=== PATIENT | female | born 1990 | race Hispanic/Latino ===

== ENCOUNTER 2019-08-13 13:48 | Outpatient (CLI) | payer OTHER, SELFPAY ==
--- NOTE | ~2019-08-13 | US_ITS ---
EXAMINATION: US OB /maternal detail DATE: 08/13/2019 15:12 INDICATION: Routine care. TECHNIQUE: Real-time ultrasound of the pelvis was performed. COMPARISON: None. FINDINGS: There is a single living fetus in breech presentation. The placenta is anterior, 2.1 cm from the cer vix. heart rate is 150 beats per minute (bpm). The amniotic fluid volume is subjectively normal . The following biometric data were obtained: Biparietal diameter (BPD): 4.5 cm; head circumference (HC): 17.4 cm; abdominal circumference (AC): 14 .2 cm; femur length (FL): 3.0 cm. These measurements are concordant. Estimated weight is 296 g +/- 44 g, which correlates with 50th percentile when 01/04/20 is used as estimated date of delivery. As single measurements, these parameters are each equal to the following estimated gestational ages: BPD: 19 weeks 4 days. HC: 19 weeks 6 days. AC: 19 weeks 4 days. FL: 19 weeks 2 days. estimated gestational age based solely on measurements from this exam is 19 weeks 4 days +/- 1 weeks 3 days. The cerebral ventricles, cerebellum, cisterna magna, nuchal fold, and visualized portions of the spin e are normal. The heart is normal. The diaphragm, stomach, kidneys, and bladder are normal. There are two umbilical arteries to yield a 3-vessel cord. The cord insertion is normal. IMPRESSION: 1. Single living fetus in breech presentation. 2. Estimated weight is 296 g +/- 44 g, which correlates with 50th percentile when 01/04/20 is u sed as estimated date of delivery. 3. Normal anatomic survey. Reviewed, dictated and finalized at location A. IMPRESSION: 1. Single living fetus in breech presentation. 2. Estimated weight is 296 g +/- 44 g, which correlates with 50th percen tile when 01/04/20 is used as estimated date of delivery. 3. Normal anatomic survey.
== END 2019-08-13 13:49 | disposition home or self-care (01) ==
LOC: ANHIMG 13:49
PROVIDERS: PCP Internal Medicine; Visit Provider Obstetrics & Gynecology
DX: Z34.90 Encounter for supervision of normal pregnancy, unspecified, unspecified trimester (principal)
CPT/HCPCS: 76805

== ENCOUNTER 2019-12-26 11:31 | Outpatient (RCR) | payer OTHER, SELFPAY ==
--- NOTE | ~2019-12-26 | US_ITS ---
EXAMINATION: US OB follow up w BPP, US umbilical doppler DATE: 12/26/2019 13:38 INDICATION: Third trimester . Assess weight, biophysical profile, amniotic fluid index and umbilical cord Dopplers. TECHNIQUE: Real-time pelvic ultrasound was performed. The interpreting radiologist was not present fo r the study. COMPARISON: None. FINDINGS: There is a single living fetus in vertex presentation. The placenta is anterior. heart rate is 150 beats per minute (bpm). Normal amniotic fluid index of 10.2 cm (5th%-95%: 7.2-RT 2.6 cm at 39 we eks estimated gestational age). The umbilical artery demonstrates a peak systolic and diastolic velocity ratio of 2.3-2.4 at multiple locations along the cord including at the fetus, placenta and mid cord (5th%-95%: 1.87-2.98 at 39 we eks). Biophysical profile performed by the technologist: breathing (30 sec sustained breathing in 30 minutes): 2 out of 2 movement (3 gross body movements in 30 minutes): 2 out of 2 tone (one episode of jmkiyrn-wljtagswa-ymafxfy limb movement): 2 out of 2 Amniotic fluid pocket (2 cm): 2 out of 2 Total score: 8 out of 8 IMPRESSION: 1. Single living fetus in vertex presentation with heart rate of 150 bpm. 2. Biophysical profile 8 out of 8. 3. Normal amniotic fluid index of 10.2 cm. 4. Normal umbilical artery systolic to diastolic velocity ratios of 2.3-2.4. Reviewed, dictated and finalized at location A. IMPRESSION: 1. Single living fetus in vertex presentation with heart rate of 150 bpm. 2. Biophysical profile 8 out of 8. 3. Normal amniotic fluid index of 10.2 cm. 4. Normal umbilical artery systolic to diastolic velocity ratios of 2.3-2.4.
[2019-12-26 12:28] VITALS: BP 116/78; PULSE 80
== END 2020-01-05 07:37 | disposition home or self-care (01) ==
LOC: ANHOBOP 11:31
PROVIDERS: PCP Internal Medicine; Visit Provider Obstetrics & Gynecology
DX: O99.210 Obesity complicating pregnancy, unspecified trimester (principal); E66.9 Obesity, unspecified; Z3A.38 38 weeks gestation of pregnancy
CPT/HCPCS: 59025; 76816; 76819; 76820; J2274

== ENCOUNTER 2020-01-02 06:11 | Inpatient (IN) | payer OTHER, SELFPAY ==
[2020-01-02] VITALS (46 sets, daily range): BP systolic 96–143; BP diastolic 59–90; PULSE 52–75; RESP 16–18; TEMP 36.4–37.1; O2SAT 97–100; BMI 55.6
--- NOTE | 2020-01-02 06:11 | LDADM ---
This patient, Betty Hannah, was admitted to Labor/Delivery/Recovery 120 on 01/02/20 at 06:11. Plans for labor, pain management and were discussed with patient. Patient/family oriented to hospital policies and general routines including ID bracelet, bed and alarms, visiting hours, pain management, procedures, bathroom and other care routines, personal items, smoking policy, room service/diet and guest tray routines, security routines, and visiting hours. Patient/Family are encouraged to report perceived risks to care and to ask questions if they do not understand what they are told or what they should do. See OBIX for further documentation.
[2020-01-02] MEDS: LACTATED RINGERS 1,000 ML 125 ML IV CONT (06:40)
[2020-01-02 06:51] LABS: Basophils Absolute Auto 0.1 K/mm3 (0.0-0.1); Basophils Percent Auto 0.4 % (0.2-1.2); Eosinophils Absolute Auto 0.6 K/mm3 (0-0.3); Eosinophils Percent Auto 4.6 % (0-4.4); Hemoglobin 10.7 g/dL (12.0-15.0); Immature Granulocyte Absolute 0.07 K/mm3 (0.00-0.031); Immature Granulocyte Percent A 0.5 % (0-0.5); Lymphocytes Absolute Auto 1.56 K/mm3 (0.9-3.2); Lymphocytes Percent Auto 12.1 % (18.3-44.2); Mean Corpuscular HGB Conc 32.4 g/dl (32-36); Mean Corpuscular Hemoglobin 26.8 pg (26-34); Mean Corpuscular Volume 82.7 fl (80-100); Monocytes Absolute Auto 0.5 K/mm3 (0.1-0.6); Neutrophils Absolute Auto 10.1 K/mm3 (1.3-6.7); Neutrophils Percent Auto 78.4 % (45.5-73.1); Platelet Count Result 337 k/mm3 (150-375); Red Blood Count 3.99 M/mm3 (4.2-5.4); Red Cell Distribution Width 13.9 % (11.5-14.5); White Blood Count 12.9 K/mm3 (4.5-10.0)
--- NOTE | 2020-01-02 06:54 | WPDANESEPPF ---
Anes - Initial Pre Proc Eval Procedure: Operation Date: 01/02/20 07:30 Proposed Procedures p Repeat Low Transverse Section - Hector Aquino MD Date/Time: 01/02/20 06:54 Surgeon: Hector Aquino MD Pre Op Diagnosis: Prior Patient Data Age: 29 Gender: F Height: 1.63 m Weight: 147 kg Allergies Allergy/AdvReac Type Severity Reaction Status Date / Time No Known Allergies Allergy Unverified 04/13/15 23:42 Home Medications Medication Instructions Recorded Confirmed Type PNV cmb#95-ferrous fumarate-FA 1 tablet PO DAILY 12/06/19 12/06/19 History [] Laboratory Tests 01/02/20 01/02/20 06:36 06:36 WBC 12.9 K/mm3 H K/mm3 (4.5-10.0) RBC 3.99 M/mm3 L M/mm3 (4.2-5.4) Hgb 10.7 g/dL L g/dL (12.0-15.0) Hct 33.0 % L % (37.0-47.0) MCV 82.7 fl fl (80-100) MCH 26.8 pg pg (26-34) MCHC 32.4 g/dl g/dl (32-36) RDW 13.9 % % (11.5-14.5) Plt Count 337 k/mm3 k/mm3 (150-375) MPV 10.0 fl fl (7.4-10.4) Immature Gran % (Auto) 0.5 % % (0-0.5) Neut % (Auto) 78.4 % H % (45.5-73.1) Lymph % (Auto) 12.1 % L % (18.3-44.2) [place] % (Auto) 4.0 % % (2.6-8.5) Eos % (Auto) 4.6 % H % (0-4.4) Baso % (Auto) 0.4 % % (0.2-1.2) Lymph # (Auto) 1.56 K/mm3 K/mm3 (0.9-3.2) [place] # (Auto) 0.5 K/mm3 K/mm3 (0.1-0.6) Eos # (Auto) 0.6 K/mm3 H K/mm3 (0-0.3) Baso # (Auto) 0.1 K/mm3 K/mm3 (0.0-0.1) Abs Immat Gran (auto) 0.07 K/mm3 H K/mm3 (0.00-0.031) Absolute Neuts (auto) 10.1 K/mm3 H K/mm3 (1.3-6.7) Absolute Nucleated RBC 0.0 K/mm3 K/mm3 (0.0-0.012) Nucleated RBC % 0.0 % % (0.0-0.2) RPR Pending Patient hx anesthesia problems: none Family hx anesthesia problems: none [facility] Surgical History Surgical History (Updated 01/01/20 @ 10:11 by Kailash Quigley DO) History of Family History Family History (Updated 12/06/19 @ 14:02 by Janice Gonzales RN) Sibling Cancer Grandparent Cancer Social History Social History Substance use: never Gender identity (if verbalized by the patient): Female Spiritual care concerns: No Anes - Eval Final PreProcedure Day of Procedure 01/02/20 06:54 Patient weight: super morbidly obese Heart: regular rate and rhythm Lungs: clear to auscultation and normal air movement Airway: Mallampati scale class II Neurological: alert and oriented Last oral intake: >/= 8 hours ASA classification: III Emergent: no Anesthetic plan: proceed Anesthesia type and monitoring: regional spinal and standard monitoring Informed Consent: The patient's anesthetic plan and its attendant risks and benefits were discussed with the patient/family/POA. Questions were solicited and answers provided to the satisfaction of the patient/family/POA.
[2020-01-02] MEDS: ceFAZolin 3 GM/D5W 100 ML 100 ML IVPB (07:06)
--- NOTE | 2020-01-02 07:27 | WPDHPUPDATE1 ---
History and Physical Update Update Date/Time: 01/02/20 07:27 History and Physical has been reviewed, including an updated exam of the patient. There are NO changes in the patient's condition. Risks, benefits, and alternatives have been discussed and questions answered. Patient agrees to proceed with procedure.
[2020-01-02] MEDS: OXYTOCIN 30 UNITS/NS 500 ML 30 UNITS/500 ML BAG 125 UNITS IV CONT (08:56)
[2020-01-02 09:02] LABS: Rapid Plasma Reagin Non-Reactive (NonReactive)
[2020-01-02] MEDS: KETOROLAC 30 MG/ML VIAL (*BKC) IV PUSH ×2 (09:34→16:00)
--- NOTE | 2020-01-02 13:23 | PM.OBPRVD ---
OB - Delivery Note Procedure Procedure: Procedures Operation Date: 01/02/20 07:30 Actual Procedures Side Surgeon p Repeat Low Transverse Section Not Applicable Gopi Buckley MD Route of delivery: Specimen: No Estimated blood loss (mL): 400 Anesthesia type: Spinal Disposition: PACU Baby Weeks of gestation at delivery: 39 Weight (pounds): 7 Weight (ounces): 1 score one minute: 9 score five minutes: 9
--- NOTE | 2020-01-02 13:24 | PM.OBPRVD ---
OB - Delivery Note Procedure Procedure: Procedures Operation Date: 01/02/20 07:30 Actual Procedures Side Surgeon p Repeat Low Transverse Section Not Applicable Gopi Buckley MD Estimated blood loss (mL): 400 Anesthesia type: Spinal Narrative: Patient prepped and draped in usual manner for this procedure. Pfannenstiel incision was made and carried down to the fascia which was extended the length of the skin incision. Superiorly and inferiorly dissected away from the rectus muscles which were then bluntly dissected. Peritoneum was readily entered and the bladder flap was developed. Uterus scored with clear fluid noted. Vertex was delivered without difficulty the rest of baby delivered as well. The placenta delivered manually and uterus was exteriorized and cleared of membranes and clots. Closed using 0 Monocryl running interlocking manner with good approximation hemostasis noted. Uterus was turned to the abdomen all subfascial tissue was noted be hemostatic and the fascia was approximated using 0 Vicryl left angle midline and then the right angle to midline with good approximation hemostasis noted. Subcutaneous tissue approximated 0 plain suture and skin edges were approximated using skin hieu. At this point seizure was considered terminated. Baby Weeks of gestation at delivery: 39 Weight (pounds): 7 Weight (ounces): 1 score one minute: 9 score five minutes: 9
[2020-01-02] MEDS: DEXTROSE 5%/0.45% SOD CHL 1,000 ML 125 ML IV CONT ×2 (15:49→23:50)
[2020-01-02] MEDS: HYDROcodone/acetaminophen (*CRX) 10-325 MG TABLET 1 TAB PO ×2 (15:50→16:00)
[2020-01-02] MEDS: SIMETHICONE 80 MG TAB.CHEW PO (16:00)
[2020-01-02] MEDS: HYDROcodone/acetaminophen (*CRX) 5-325 MG TABLET 1 TAB PO (20:25)
[2020-01-02] MEDS: IBUPROFEN 600 MG TABLET PO (20:25)
[2020-01-03] MEDS: HYDROcodone/acetaminophen (*CRX) 10-325 MG TABLET 1 TAB PO ×4 (03:47→14:23)
[2020-01-03] MEDS: IBUPROFEN 600 MG TABLET PO ×3 (03:48→18:42)
[2020-01-03 04:51] VITALS: BP 129/81; PULSE 74; RESP 18; TEMP 36.7; O2SAT 100
[2020-01-03 05:20] LABS: Basophils Percent Auto 0.4 % (0.2-1.2); Eosinophils Absolute Auto 0.5 K/mm3 (0-0.3); Eosinophils Percent Auto 5.4 % (0-4.4); Hematocrit 27.6 % (37.0-47.0); Hemoglobin 8.8 g/dL (12.0-15.0); Immature Granulocyte Absolute 0.03 K/mm3 (0.00-0.031); Immature Granulocyte Percent A 0.3 % (0-0.5); Mean Corpuscular HGB Conc 31.9 g/dl (32-36); Mean Corpuscular Hemoglobin 26.9 pg (26-34); Mean Corpuscular Volume 84.4 fl (80-100); Mean Platelet Volume 10.1 fl (7.4-10.4); Monocytes Absolute Auto 0.5 K/mm3 (0.1-0.6); Neutrophils Absolute Auto 7.1 K/mm3 (1.3-6.7); Neutrophils Percent Auto 70.9 % (45.5-73.1); Platelet Count Result 262 k/mm3 (150-375); Red Blood Count 3.27 M/mm3 (4.2-5.4); Red Cell Distribution Width 13.9 % (11.5-14.5)
[2020-01-03] MEDS: POLYSACCHARIDE IRON COMPLEX 150 MG CAPSULE PO ×2 (07:43→18:42)
[2020-01-03 07:44] VITALS: BP 132/80; PULSE 76; RESP 18; TEMP 36.5; O2SAT 100
[2020-01-03] MEDS: DOCUSATE SODIUM 100 MG CAPSULE PO ×2 (07:44→18:42)
--- NOTE | 2020-01-03 08:48 | PM.OBDSVD ---
DS: Admitting Diagnosis Admitting Diagnosis Admitting Diagnosis: Prior OB - DS: Summary OB Procedures : None OB Procedures Intrapartum: OB Procedures: : None Peripartum Data Procedures: Procedures Operation Date: 01/02/20 07:30 Actual Procedures Side Surgeon p Repeat Low Transverse Section Not Applicable Gopi Buckley MD Time Spent with Patient Time attestation: Total time spent providing and/or coordinating discharge services: DS: Data Data Completed and Pending Labs on day of discharge: Labs from last 24 hours 01/03/20 01/02/20 03:53 06:36 WBC 10.0 RBC 3.27 L Hgb 8.8 L Hct 27.6 L MCV 84.4 MCH 26.9 MCHC 31.9 L RDW 13.9 Plt Count 262 MPV 10.1 Immature Gran % (Auto) 0.3 Neut % (Auto) 70.9 Lymph % (Auto) 18.0 L [place] % (Auto) 5.0 Eos % (Auto) 5.4 H Baso % (Auto) 0.4 Lymph # (Auto) 1.80 [place] # (Auto) 0.5 Eos # (Auto) 0.5 H Baso # (Auto) 0.0 Abs Immat Gran (auto) 0.03 Absolute Neuts (auto) 7.1 H Absolute Nucleated RBC 0.0 Nucleated RBC % 0.0 RPR Non-reactive Discharge Plan Discharge Discharging Clinician: Gopi Buckley Patient Disposition: Home, Self-Care Activity: as tolerated Diet: as tolerated Wound Care Instructions: incision open to air Discharge Instructions: return office sunday for staple removal Patient Instructions: Antibiotic Form Stand Alone Forms: General Discharge Information Follow-up/Referrals: Hector Aquino MD [Physician] - 3 Weeks Discharge Medications: New hydrocodone-acetaminophen 5-325 mg Tablet 1 tab PO Q6H PRN (Reason: Moderate Pain (4-6)) Qty: 20 RF: 0 ibuprofen 600 mg Tablet 600 mg PO Q6H PRN (Reason: Cramping) Qty: 30 RF: 0 Continued PNV cmb#95-ferrous fumarate-FA [] 28 mg iron- 800 mcg Tablet 1 tablet PO DAILY RF: 0 Date of admission: 01/02/20 06:11 Primary Care Provider: Haley,Jowe Y. Admitting Provider: Gopi Buckley Attending physician on admission: Gopi Buckley
--- NOTE | 2020-01-03 12:42 | WPDANLDPN2 ---
Anes-Prog Note L&D Date/Time: 01/03/20 12:42 Comfortable throughout: section Neuraxial method: spinal Neuro status: Neuro function grossly intact. Cardiovascular status: normal Respiratory status: normal Airway patency: baseline Mental status: baseline Post-Op hydration status: normal Vital Signs: Last Vital Signs Temp 36.7 C 01/03/20 04:51 Pulse 74 01/03/20 04:51 Resp 18 01/03/20 04:51 BP 129/81 01/03/20 04:51 Pulse Ox 100 01/03/20 04:51 Pain score (VAS): 04/25 I/O: Intake & Output 01/02/20 01/03/20 01/03/20 23:59 07:59 15:59 Intake Total 1000 Balance 1000 Post-procedural complaints: none Patient feedback: Patient satisfied with anesthetic care.
--- NOTE | 2020-01-03 12:42 | WPDANLDNPN2 ---
Anes-Prog Note L&D-Neuraxial Date/Time: 01/03/20 12:42 Neuraxial medications: intrathecal PF morphine Opiod-related complaints: none Patient feedback: Patient satisfied with post-operative pain management.
[2020-01-03] MEDS: HYDROcodone/acetaminophen (*CRX) 5-325 MG TABLET 1 TAB PO (18:42)
[2020-01-03 18:53] VITALS: BP 145/84; PULSE 76; PULSE 82; RESP 18; TEMP 36.6; O2SAT 100; O2SAT 99
[2020-01-04] MEDS: IBUPROFEN 600 MG TABLET PO ×2 (04:52→10:59)
[2020-01-04] MEDS: HYDROcodone/acetaminophen (*CRX) 5-325 MG TABLET 1 TAB PO ×2 (04:52→07:59)
[2020-01-04] MEDS: POLYSACCHARIDE IRON COMPLEX 150 MG CAPSULE PO (08:00)
[2020-01-04] MEDS: SIMETHICONE 80 MG TAB.CHEW PO (08:00)
[2020-01-04] MEDS: DOCUSATE SODIUM 100 MG CAPSULE PO (08:00)
[2020-01-04 08:26] VITALS: BP 146/93; PULSE 71; RESP 17; TEMP 36.6; O2SAT 100
[2020-01-04] MEDS: MEASLES,MUMPS,RUBELLA VACCINE 0.5 ML VIAL SUB-Q (10:52)
[2020-01-04 11:03] VITALS: BP 141/78
--- NOTE | 2020-01-04 12:45 | PC.NURSE ---
PT received discharge instructions per protocol and verbalize understanding of such instructions.
--- NOTE | 2020-01-04 13:18 | PC.NURSE ---
PT discharged to home ambulatory accompanied by infant. Bet father of baby in [address] driveway to be taken home. guard driver present. follow up appts confirmed
--- NOTE | 2020-01-04 14:09 | PC.NURSE ---
Addendum entered by Figueroa Stout RN 01/04/20 14:21: time was actually at 1230 Original Note: PT called out to desk requesting security to be brought to her room. Security was called and advised to come to room 279. Nurses hurried to room to find the fob on the couch looking at his phone and pt sitting in chair next to bed. Infant was in open crib against wall behind pt. Water pitcher was on the floor with water on the floor, bed and back, seat of chair. PT states he needs to leave. When confronted with the situation, he remained quiet and she asked him to leave and wait in another room as he is her ride home. PT does not live with him but with her parents. Security escorted him out of the hospital. PT was offered taxi, or to obtain another ride home. PT declined offer and said she wanted him to take her home. Security remained at bedside to make sure pt was secure and whether charges needed to be filed. PT then stated that he wasn't being helpful or attentive and then he threw her slipper after she told him that he had gotten it wet with mishandling of the water pitcher. PT very talkative and cheerful. PT did not appear to be fearful.
[2020-01-06 09:03] VITALS: BP 138/71; PULSE 85; RESP 20; TEMP 36.4; O2SAT 100
--- NOTE | 2020-01-23 16:18 | PM.IMHP ---
H&P: HPI History of Present Illness Date/Time: 01/23/20 16:18 Chief complaint: Prior Narrative: Betty Hannah is a 29 year old female 3 para 1011 female 37 weeks gestationa presents and active labor. Had been scheduled for repeat delivery therefore be proceeding with this today. No other significant concerns or issues and the records are on the chart. This is a patient of Dr Aquino of which I am covering today. Review of Systems Review of Systems: All systems reviewed & are unremarkable except as noted in HPI and below PMFSH Surgical History Surgical History History of Family History Family History Sibling Cancer Grandparent Cancer Social History Social History Smoking status: Current every day smoker Tobacco type: cigarettes Second hand tobacco smoke exposure: Yes Substance use: never Gender identity (if verbalized by the patient): Female Spiritual care concerns: No Meds Home Medications and Allergies Home Medications Medication Instructions Recorded Confirmed Type PNV cmb#95-ferrous fumarate-FA 1 tablet PO DAILY 12/06/19 12/06/19 History [] hydrocodone-acetaminophen 1 tab PO Q6H PRN #20 tablet 01/03/20 Rx ibuprofen 600 mg PO Q6H PRN #30 tablet 01/03/20 Rx Allergies Allergy/AdvReac Type Severity Reaction Status Date / Time No Known Allergies Allergy Unverified 04/13/15 23:42 Exam Const: General: cooperative and no acute distress Resp: Auscultation: clear to auscultation bilaterally Cardio: Rate: regular rate Rhythm: regular rhythm GI: Inspection: normal to inspection and other ( fundal height 37cm heart tones 140) Assessment and Plan Assessment and plan (1) Term : Code(s): Z34.90 - Encounter for supervision of normal , unspecified, unspecified trimester Status: Acute (2) Previous delivery affecting : Code(s): O34.219 - Maternal care for unspecified type scar from previous delivery Status: Acute Additional Plan proceed with repeat low transverse section.
--- NOTE | 2020-01-23 16:21 | PM.OBDSVD ---
DS: Admitting Diagnosis Admitting Diagnosis Admitting Diagnosis: Prior OB - DS: Summary OB Procedures : None OB Procedures Intrapartum: OB Procedures: : None Peripartum Data Procedures: Procedures Operation Date: 01/02/20 07:30 Actual Procedures Side Surgeon p Repeat Low Transverse Section Not Applicable Gopi Buckley MD Time Spent with Patient Time attestation: Total time spent providing and/or coordinating discharge services: Discharge Plan Discharge Consulting providers: Kailash Quigley Discharging Clinician: Gopi Buckley Patient Disposition: Home, Self-Care Activity: as tolerated Diet: as tolerated Wound Care Instructions: incision open to air Discharge Instructions: return office sunday for staple removal Education: Mom and Baby Guide Given to: Mother Follow-Up: Call your delivering provider's office for an appointment to be seen in: 1 Week Mom and baby should come to the [facility] for the follow-up appointment. Appointment Date/Time: January 06, 2020 at 9:00 am What to expect at your follow-up visit: Blood Pressure Check Physical Assessment Call [phone] if you are unable to keep your appointment time. BREAST CARE: * Wear a snug supportive bra. * For engorgement discomfort: Breast Feeding: * Apply warm moist washcloths * Express milk as needed to relieve engorgement * Wear loose clothing Bottle Feeding: * May apply ice packs * For sore nipples: * Identify correct latch-on * Apply warm moist washcloths before and after nursing * Air dry nipples after nursing * May apply Lansinoh cream to nipples ABDOMINAL INCISION: (if applicable) * Allow incision to air dry * Do NOT use lotions for powders on your incision * When showering, allow soap and water to run over the incision, but do not wash incision PERINEAL CARE: * Until bleeding stops, use your lexus bottle after urinating * Change your pad frequently throughout the day * You may take sitz baths several times a day (fill your bathtub with warm water and soak for 20 minutes.) Do NOT bathe in the water * No tub baths until seen by your physician - You may shower ACTIVITY: * Rest as much as possible. * Do not exercise or lift anything heavier than your baby (such as laundry or other children.) * Avoid stairs or driving as much as possible. * Do not put anything into the vagina. No douching, tampons, or sexual activity until seen by physician. NOTIFY PHYSICIAN IF YOU HAVE ANY QUESTIONS OR IF ANY OF THE FOLLOWING SYMPTOMS OCCUR: * If your episiotomy or incision becomes red, swollen, or more painful than what you have experienced in the hospital. * If your vaginal bleeding becomes foul smelling. * If your vaginal bleeding becomes more heavy than a period or if your bleeding changes from pink to bright red. However, you may pass an occasional walnut-sized clot once or twice for the first week . * If you experience a sharp, shooting pain in you calves. * If you discover a hard, reddened area on your breast or if you experience flu-like symptoms. DIET: * Eat regular, well-balanced meals. * Drink plenty of fluids daily. If , drink to thirst. Patient Instructions: Antibiotic Form Stand Alone Forms: General Discharge Information Follow-up/Referrals: Hector Aquino MD [Physician] - 3 Weeks Discharge Medications: New hydrocodone-acetaminophen 5-325 mg Tablet 1 tab PO Q6H PRN (Reason: Moderate Pain (4-6)) Qty: 20 RF: 0 ibuprofen 600 mg Tablet 600 mg PO Q6H PRN (Reason: Cramping) Qty: 30 RF: 0 Continued PNV cmb#95-ferrous fumarate-FA [] 28 mg iron- 800 mcg Tablet 1 tablet PO DAILY RF: 0 Date of admission: 01/02/20 06:11 Primary Care Provider: Haley,Alen Teague
== END 2020-01-04 13:18 | disposition home or self-care (01) | DRG 540 ==
LOC: ANHLDR 07:22 → ANHOB2 11:01
PROVIDERS: Admitting Provider Obstetrics & Gynecology; PCP Internal Medicine; Visit Provider Obstetrics & Gynecology
PROC: 10D00Z1 Extraction of Products of Conception, Low, Open Approach (ICD-10-PCS; CPT 59514; principal; 2020-01-02 07:30)
DX: O34.211 Maternal care for low transverse scar from previous cesarean delivery (principal); O99.214 Obesity complicating childbirth; E66.01 Morbid (severe) obesity due to excess calories; Z3A.39 39 weeks gestation of pregnancy; Z37.0 Single live birth
CPT/HCPCS: 36415; 85025; 86592; 86850; 86900; 86901; 90710; A9270; J0131; J0690; J1100; J1885; J2405; J2590; J2704; J7120

== ENCOUNTER 2020-12-10 07:18 | Emergency (ER) | payer OTHER, SELFPAY ==
--- NOTE | ~2020-12-10 | XR_ITS ---
EXAMINATION: XR chest 1V portable EXAM DATE: 12/10/2020 07:39 INDICATION: Exposed to COVID. Cough. TECHNIQUE: Portable AP frontal chest x-ray was obtained. There is no prior study for comparison. FINDINGS: The lungs are clear. There are no pleural effusions. The cardiomediastinal silhouette is within normal limits. There is no pneumothorax suspected. The bones and soft tissues are unremarkab le. IMPRESSION: No acute cardiopulmonary findings. Reviewed, dictated and finalized at location A.
[2020-12-10 07:22] VITALS: BP 162/122; PULSE 98; RESP 18; TEMP 36.4; O2SAT 98
--- NOTE | 2020-12-10 07:51 | ED.URI ---
HPI - URI/Sore Throat General Chief Complaint: Upper Respiratory Infection Stated Complaint: Exposed to COVID Time Seen by Provider: 12/10/20 07:51 Source: patient and RN notes reviewed Mode of arrival: ambulatory Limitations: no limitations History of Present Illness HPI Narrative: Dry cough and sore throat for the last 2 days. Patient denies any fever, chills, nausea, vomiting, headache, chest pain, shortness of breath. Possible Covid exposures in the last few days. Patient is not vaccinated. Related Data Home Medications Medication Instructions Recorded Confirmed PNV cmb#95-ferrous fumarate-FA 1 tablet PO DAILY 12/06/19 12/06/19 [] Allergies Allergy/AdvReac Type Severity Reaction Status Date / Time No Known Allergies Allergy Verified 12/10/20 07:35 Review of Systems Review of Systems: Review of system [facility] Surgical History Surgical History History of Family History Family History Sibling Cancer Grandparent Cancer Social History Social History Smoking status: Current every day smoker Tobacco type: cigarettes Second hand tobacco smoke exposure: Yes Substance use: never Gender identity (if verbalized by the patient): Female Spiritual care concerns: No Exam Narrative: General appearance: Well-developed, well-nourished Skin: Normal color Head: Normocephalic, nontraumatic Eyes: Clear conjunctiva ENT: Oropharynx normal, ears normal, nose normal Neck: Supple, nontender Chest and respiratory: Airway patent, no respiratory distress, no accessory muscle use Heart: Regular rate/rhythm Abdomen: Soft, nontender, no organomegaly, quiet bowel sounds Vascular: Normal peripheral pulses, normal capillary refill. Musculoskeletal: Normal range of motion, nontender back Neurologic: Alert and oriented ?3, [employer] is normal as tested, no gross motor deficit Course Course Emergency Course: Stable Vital Signs Vital signs: Vital Signs Temperature 36.4 C L 12/10/20 07:22 Pulse Rate 98 12/10/20 07:22 Respiratory Rate 18 12/10/20 07:22 Blood Pressure 162/122 H 12/10/20 07:22 Pulse Oximetry 98 12/10/20 07:22 Temperature 36.4 C L 12/10/20 07:22 Pulse Rate 98 12/10/20 07:22 Respiratory Rate 18 12/10/20 07:22 Blood Pressure 162/122 H 12/10/20 07:22 Pulse Oximetry 98 12/10/20 07:22 MDM - URI/Sore Throat MDM Narrative Medical decision making narrative: Upper respiratory viral infection is my concern. Covid test ordered. Chest x-ray ordered. Differential Diagnosis Differential diagnosis: Likely upper respiratory infection and viral infection Lab Data Labs: Lab Results 12/10/20 Range/Units 07:30 SARS-CoV-2 RNA (RT-PCR) Pending Imaging Data Radiologist's impression: Impressions Chest X-Ray 12/10/20 07:39 IMPRESSION: No acute cardiopulmonary findings. Critical Care Time Critical Care Time Critical Care Time: No Discharge Plan Discharge Clinical Impression: Upper respiratory infection, viral Patient Disposition: Home, Self-Care Condition: Stable Instructions: Antibiotic Form, Upper Respiratory Infection (ED) Additional Instructions: Return if symptoms are worsening , call your family physician for appointment, take Tylenol as as needed for aches and pain, continue home medications. Remain isolated at home until she get the Covid test result. Take Tylenol, ibuprofen as needed for fever or pain. Encourage fluid intake. Prescriptions: New ipratropium bromide
[2020-12-10 18:23] LABS: SARS-CoV-2 RNA PCR Positive
== END 2020-12-10 08:11 | disposition home or self-care (01) ==
PROVIDERS: Emergency Provider Emergency Medicine; PCP Internal Medicine
DX: U07.1 COVID-19 (principal); J06.9 Acute upper respiratory infection, unspecified; F17.210 Nicotine dependence, cigarettes, uncomplicated
CPT/HCPCS: 71045; 99283; C9803; U0003; U0005

== ENCOUNTER 2021-06-03 05:29 | Observation (INO) | payer OTHER, SELFPAY ==
[2021-06-03] VITALS (81 sets, daily range): BP systolic 64–142; BP diastolic 23–129; PULSE 32–143; RESP 0–27; TEMP 35.8–36.7; O2SAT 74–100
--- NOTE | ~2021-06-03 | US_ITS ---
EXAMINATION: US OB <= 14 weeks fetus DATE: 06/03/2021 07:48 INDICATION: Vaginal bleeding during of unknown trimester TECHNIQUE: Real-time pelvic transabdominal and transvaginal ultrasound was performed. COMPARISON: None. FINDINGS: The uterus measures 10.1 x 7.5 x 5.3 cm. No intrauterine gestational sac is identified. The re is fluid in the endometrial canal. The endometrial complex measures 2.4 cm. The ovaries are not vi sualized however no adnexal abnormality is seen. There is no free fluid in the pelvis. IMPRESSION: 1. Endometrial thickening and fluid in the endometrial canal without visible intrauterine . Reviewed, dictated and finalized at location A. SALESPERSON IMPRESSION: 1. Endometrial thickening and fluid in the endometrial canal without visible in trauterine .
[2021-06-03] MEDS: SODIUM CHLORIDE 0.9% IV 1,000 ML 999 ML IV CONT ×2 (05:45→08:53)
[2021-06-03 05:55] LABS: Basophils Percent Auto 0.3 % (0.2-1.2); Eosinophils Absolute Auto 0.6 K/mm3 (0-0.3); Eosinophils Percent Auto 6.6 % (0-4.4); Hematocrit 31.9 % (37.0-47.0); Hemoglobin 10.4 g/dL (12.0-15.0); Immature Granulocyte Absolute 0.04 K/mm3 (0.00-0.031); Immature Granulocyte Percent A 0.4 % (0-0.5); Lymphocytes Absolute Auto 1.39 K/mm3 (0.9-3.2); Lymphocytes Percent Auto 15.5 % (18.3-44.2); Mean Corpuscular HGB Conc 32.6 g/dl (32-36); Mean Corpuscular Hemoglobin 28.5 pg (26-34); Mean Corpuscular Volume 87.4 fl (80-100); Mean Platelet Volume 10.1 fl (7.4-10.4); Monocytes Absolute Auto 0.4 K/mm3 (0.1-0.6); Monocytes Percent Auto 4.5 % (2.6-8.5); Neutrophils Absolute Auto 6.5 K/mm3 (1.3-6.7); Neutrophils Percent Auto 72.7 % (45.5-73.1); Platelet Count Result 249 k/mm3 (150-375); Red Blood Count 3.65 M/mm3 (4.2-5.4); Red Cell Distribution Width 12.8 % (11.5-14.5)
[2021-06-03 06:05] LABS: Alanine Aminotransferase 20 U/L (4-35); Albumin Level 3.7 g/dL (3.5-5.1); Alkaline Phosphatase 80 U/L (38-126); Anion Gap 7 mmol/L (8-16); Aspartate Amino Transferase 29 U/L (14-36); Bilirubin,Total 0.6 mg/dL (0.2-1.3); Blood Urea Nitrogen 9 mg/dL (7-17); Calcium 8.7 mg/dL (8.4-10.2); Carbon Dioxide 23 mmol/L (22-30); Chloride 108 mmol/L (98-107); Estimated CRCL calculation 129 ml/min; Estimated Glomerular Filt Rate > 60; Glucose 110 mg/dL (65-110); Potassium 3.2 mmol/L (3.4-5.0); Sodium 138 mmol/L (137-145)
[2021-06-03] MEDS: fentaNYL CITRATE INJ (*CRX) 100 MCG/2 ML VIAL 50 MCG IV PUSH ×4 (06:05→09:18)
[2021-06-03] MEDS: TRANEXAMIC ACID 1,000 MG/10 ML AMPUL 1000 MG IV PUSH ×2 (06:06→10:10)
--- NOTE | 2021-06-03 06:06 | ED.FEMALEGU ---
HPI - Female Genitourinary General Chief complaint: Vaginal Bleeding <Avni Rider MD - Last Filed: 06/03/21 22:46> Stated complaint: 3 months preg, vag bleeding <Avni Rider MD - Last Filed: 06/03/21 22:46> Time Seen by Provider: 06/03/21 05:35 <Avni Rider MD - Last Filed: 06/03/21 22:46> History of Present Illness HPI Narrative: Patient is a 30-year-old G4, P2 SAB one who presents ER with vaginal bleeding. She believes LMP was 02/13/2021. This would give her a gestational age of 15 weeks and 5 days. Patient was seen at [facility] 2 days ago. She is not yet had an ultrasound. She does not know the name of her OB. She reports this evening she started having heavy bleeding and was passing large clots at home. Patient is having some weakness and some lightheadedness. She endorses lower abdominal cramping. <Avni Rider MD - Last Filed: 06/03/21 22:46> Related Data Home medications: Home Medications Medication Instructions Recorded Confirmed PNV cmb#95-ferrous fumarate-FA 1 tablet PO DAILY 12/06/19 12/06/19 [] aspirin 324 mg PO DAILY 06/03/21 nifedipine 30 mg PO DAILY 06/03/21 nitrofurantoin monohyd/m-cryst 100 mg PO BID 06/03/21 <Avni Rider MD - Last Filed: 06/03/21 22:46> Allergies/Adverse reactions: Allergies Allergy/AdvReac Type Severity Reaction Status Date / Time No Known Allergies Allergy Verified 06/03/21 08:08 <Avni Rider MD - Last Filed: 06/03/21 22:46> Review of Systems Review of Systems: All systems reviewed & are unremarkable except as noted in HPI and below <Avni Rider MD - Last Filed: 06/03/21 22:46> Constitutional: Constitutional: Denies chills and Denies fatigue <Avni Rider MD - Last Filed: 06/03/21 22:46> Gastrointestinal: Gastrointestinal: Reports abdominal pain, Denies diarrhea, Denies nausea and Denies vomiting <Avni Rider MD - Last Filed: 06/03/21 22:46> Genitourinary: Genitourinary: Reports abnormal vaginal bleeding and Denies vaginal discharge <Avni Rider MD - Last Filed: 06/03/21 22:46> Musculoskeletal: Musculoskeletal: Denies joint swelling and Denies muscle cramps <Avni Rider MD - Last Filed: 06/03/21 22:46> Neurologic: Denies syncope, Denies headache(s), Denies focal weakness and Denies numbness <Avni Rider MD - Last Filed: 06/03/21 22:46> PMFSH Past Medical History Medical History: Medical History (Updated 06/03/21 @ 11:47 by Elbert Santillan MD) Morbid obesity <Avni Rider MD - Last Filed: 06/03/21 22:46> Surgical History Surgical History: Surgical History History of <Avni Rider MD - Last Filed: 06/03/21 22:46> Family History Family History: Family History Sibling Cancer Grandparent Cancer <Avni Rider MD - Last Filed: 06/03/21 22:46> Social History Social History: Social History Smoking status: Current every day smoker Tobacco type: cigarettes Second hand tobacco smoke exposure: Yes Substance use: never Gender identity (if verbalized by the patient): Female Spiritual care concerns: No <Avni Rider MD - Last Filed: 06/03/21 22:46> Exam Narrative: GENERAL: Uncomfortable-appearing, well-nourished, and in mild distress. HEAD: Normocephalic, atraumatic. EYES: PERRL and EOMI. CHEST: Clear to auscultation. No respiratory distress. HEART: Regular rate and rhythm. Normal peripheral pulses. ABDOMEN: Soft, nontender, nondistended. : Normal external genitalia, large clot evacuated from the vagina with briskly bleeding bright red blood from cervical os which is closed. Cervix nonerythematous, no vaginal discharge noted. EXTREMITIES: Normal range of motion. No edema. SKIN: Warm,
[2021-06-03 06:07] LABS: Partial Thromboplastin Time 28.4 SECONDS (22.3-36.8)
[2021-06-03 06:12] LABS: INR 1.1; Prothrombin Time 13.9 Seconds (11.1-14.7)
[2021-06-03] MEDS: ONDANSETRON INJ 4 MG/2 ML VIAL IV PUSH (06:52)
--- NOTE | 2021-06-03 07:47 | PC.NURSE ---
Vaginal packing removed for imaging. patient reports episode of dizziness and nausea while standing in US. Patient returns from US. patient placed reverse Trendelenburg and reports relief of nausea and dizziness. Patient reports increasing pain. ERP notified.
--- NOTE | 2021-06-03 08:56 | PC.NURSE ---
Patient reports return of dizziness. Patient placed reverse Trendelenburg. Reports relief of symptoms. BP reported to ERP. Patient receives NS infusion. Patient provided warm blankets.
--- NOTE | 2021-06-03 09:00 | PM.IMHP ---
H&P: HPI History of Present Illness Date/Time: 06/03/21 09:00 Chief Complaint: early bleeding Narrative: 30yo who presents with heavy vaginal bleeding. Pt states her LMP was some time in February. She reports irregular menses. Her first positive UPT was the first week of April. She has had one visit at [facility]. She had not had a dating or viability US. She sates she started having some bleeding yesterday but it had stopped. She reports that around 0500 this morning she started having abdominal cramping and heavy vaginal bleeding. She states the bleeding is similar to a heavy period. She presented to the ED and continued to have heavy vaginal bleeding. Pt had a pelvic US that showed no identifiable intrauterine . The uterus did show intracavitary fluid and a thickened endometrial complex. There was no obvious sign of ectopic . Pt Beta HCG level returned [id number]. Pt became hypotensive and tachycardic in the ED. She was given IVF bolus and ordered a unit of pRBC. Given patient hemodynamic status I recommended surgical management via suction D&C. Review of Systems Cardiovascular: Cardiovascular: Denies chest pain, Denies leg edema, Denies palpitations, Denies dyspnea and Denies dyspnea on exertion Respiratory: Respiratory: Denies cough, Denies dyspnea and Denies dyspnea on exertion Gastrointestinal: Gastrointestinal: Denies abdominal pain, Denies constipation, Denies diarrhea, Denies nausea and Denies vomiting Genitourinary: Genitourinary: Denies hematuria, Denies urinary frequency, Denies dysuria, Denies pelvic pain, Denies urinary incontinence and Denies vaginal discharge Neurologic: Reports system reviewed and no additional complaints, except as documented Psychiatric: Psychiatric: Reports no additional psychiatric complaints Endocrine: Endocrine: Denies palpitations [facility] Past Medical History Medical History (Updated 06/03/21 @ 09:11 by Nikita Fulton MD) Healthy female adult Surgical History Surgical History History of Family History Family History Sibling Cancer Grandparent Cancer Social History Social History Smoking status: Current every day smoker Tobacco type: cigarettes Second hand tobacco smoke exposure: Yes Substance use: never Gender identity (if verbalized by the patient): Female Spiritual care concerns: No Meds Home Medications and Allergies Home Medications Medication Instructions Recorded Confirmed Type PNV cmb#95-ferrous fumarate-FA 1 tablet PO DAILY 12/06/19 12/06/19 History [] ipratropium bromide 2 spray INTRANASAL QID #15 ml 12/10/20 Rx aspirin 324 mg PO DAILY 06/03/21 History nifedipine 30 mg PO DAILY 06/03/21 History nitrofurantoin monohyd/m-cryst 100 mg PO BID 06/03/21 History Allergies Allergy/AdvReac Type Severity Reaction Status Date / Time No Known Allergies Allergy Verified 06/03/21 08:08 Vital Signs Vital Signs - 24 hr 06/03/21 05:34 06/03/21 05:35 06/03/21 05:36 Temperature 36.3 C L Pulse Rate 79 86 89 Respiratory Rate 16 19 23 H Blood Pressure 134/85 134/85 Pulse Oximetry 100 100 100 06/03/21 05:45 06/03/21 06:00 06/03/21 06:01 Temperature Pulse Rate 78 86 88 Respiratory Rate 27 H 17 23 H Blood Pressure 142/129 H Pulse Oximetry 100 100 79 L 06/03/21 06:08 06/03/21 06:10 06/03/21 06:15 Temperature Pulse Rate 72 91 71 Respiratory Rate 14 20 13 Blood Pressure 111/65 111/65 Pulse Oximetry 100 100 100 06/03/21 06:30 06/03/21 06:32 06/03/21 06:45 Temperature Pulse Rate 62 67 70 Respiratory Rate 18 0 L 16 Blood Pressure 108/53 L Pulse Oximetry 100 100 100 06/03/21 07:00 06/03/21 07:02 06/03/21 07:45 Temperature 35.8 C L Pulse Rate 84 74 82 Respiratory Rate 12 16 Blood Press
--- NOTE | 2021-06-03 09:16 | WPDHPUPDATE1 ---
History and Physical Update Update Date/Time: 06/03/21 09:16 History and Physical has been reviewed, including an updated exam of the patient. There are NO changes in the patient's condition. Risks, benefits, and alternatives have been discussed and questions answered. Patient agrees to proceed with procedure.
--- NOTE | 2021-06-03 09:34 | WPDANESEPPF ---
Anes - Initial Pre Proc Eval Procedure: Operation Date: 06/03/21 09:30 Proposed Procedures p Suction Dilatation and Curettage - Nikita Fulton MD Date/Time: 06/03/21 09:34 Surgeon: Nikita Fulton MD Pre Op Diagnosis: 3 months preg, vag bleeding Patient Data Age: 30 Gender: F Height: 1.63 m Weight: 120 kg Last Vital Signs Temp 35.8 C L 06/03/21 08:45 Pulse 92 06/03/21 08:45 Resp 20 06/03/21 08:45 BP 88/64 L 06/03/21 08:45 Pulse Ox 100 06/03/21 08:45 Allergies Allergy/AdvReac Type Severity Reaction Status Date / Time No Known Allergies Allergy Verified 06/03/21 08:08 Home Medications Medication Instructions Recorded Confirmed Type PNV cmb#95-ferrous fumarate-FA 1 tablet PO DAILY 12/06/19 12/06/19 History [] ipratropium bromide 2 spray INTRANASAL QID #15 ml 12/10/20 Rx aspirin 324 mg PO DAILY 06/03/21 History nifedipine 30 mg PO DAILY 06/03/21 History nitrofurantoin monohyd/m-cryst 100 mg PO BID 06/03/21 History Laboratory Tests 06/03/21 06/03/21 06/03/21 05:43 05:43 05:43 WBC 9.0 K/mm3 K/mm3 (4.5-10.0) RBC 3.65 M/mm3 L M/mm3 (4.2-5.4) Hgb 10.4 g/dL L g/dL (12.0-15.0) Hct 31.9 % L % (37.0-47.0) MCV 87.4 fl fl (80-100) MCH 28.5 pg pg (26-34) MCHC 32.6 g/dl g/dl (32-36) RDW 12.8 % % (11.5-14.5) Plt Count 249 k/mm3 k/mm3 (150-375) MPV 10.1 fl fl (7.4-10.4) Immature Gran % (Auto) 0.4 % % (0-0.5) Neut % (Auto) 72.7 % % (45.5-73.1) Lymph % (Auto) 15.5 % L % (18.3-44.2) Becker % (Auto) 4.5 % % (2.6-8.5) Eos % (Auto) 6.6 % H % (0-4.4) Baso % (Auto) 0.3 % % (0.2-1.2) Lymph # (Auto) 1.39 K/mm3 K/mm3 (0.9-3.2) Becker # (Auto) 0.4 K/mm3 K/mm3 (0.1-0.6) Eos # (Auto) 0.6 K/mm3 H K/mm3 (0-0.3) Baso # (Auto) 0.0 K/mm3 K/mm3 (0.0-0.1) Abs Immat Gran (auto) 0.04 K/mm3 H K/mm3 (0.00-0.031) Absolute Neuts (auto) 6.5 K/mm3 K/mm3 (1.3-6.7) Absolute Nucleated RBC 0.0 K/mm3 K/mm3 (0.0-0.012) Nucleated RBC % 0.0 % % (0.0-0.2) PT 13.9 Seconds Seconds (11.1-14.7) INR 1.1 APTT 28.4 SECONDS SECONDS (22.3-36.8) Sodium 138 mmol/L mmol/L (137-145) Potassium 3.2 mmol/L L mmol/L (3.4-5.0) Chloride 108 mmol/L H mmol/L (98-107) Carbon Dioxide 23 mmol/L mmol/L (22-30) Anion Gap 7 mmol/L L mmol/L (8-16) BUN 9 mg/dL mg/dL (7-17) Creatinine 0.70 mg/dL mg/dL (0.7-1.0) Estim Creat Clear Calc 129 ml/min ml/min Estimated GFR > 60 (59 - ) Glucose 110 mg/dL mg/dL (65-110) Calcium 8.7 mg/dL mg/dL (8.4-10.2) Total Bilirubin 0.6 mg/dL mg/dL (0.2-1.3) AST 29 U/L U/L (14-36) ALT 20 U/L U/L (4-35) Alkaline Phosphatase 80 U/L U/L (38-126) Total Protein 7.0 g/dL g/dL (6.3-8.2) Albumin 3.7 g/dL g/dL (3.5-5.1) Beta HCG, Quant 35222.00 mIU/ML mIU/ML Blood Type Antibody Screen Screen Baby's Blood Type Baby's ANN Doses of RhIg Required Crossmatch 06/03/21 05:45 WBC RBC Hgb Hct MCV MCH MCHC RDW Plt Count MPV Immature Gran % (Auto) Neut % (Auto) Lymph % (Auto) Becker % (Auto) Eos % (Auto) Baso % (Auto) Lymph # (Auto) Becker # (Auto) Eos # (Auto) Baso # (Auto) Abs Immat Gran (auto) Absolute Neuts (auto) Absolute Nucleated RBC Nucleated RBC % PT INR APTT Sodium Potassium Chloride Carbon Dioxide Anion
--- NOTE | 2021-06-03 09:48 | SUR.OPER ---
Asked about giving Ancef IVPB prior to start of case. declined. States he will give PO Doxy in Recovery.
--- NOTE | 2021-06-03 09:57 | SUR.OPER ---
Informed Klaudia in the Lab that specimen being sent will need chromosomal study. Paperwork sent with specimen.
--- NOTE | 2021-06-03 09:58 | SUR.PREOP ---
0940 came from OR with fluids running, 1000ml LR with anesthesia tubing sent to OR, per Dr Fulton no PRBC at this time.
[2021-06-03] MEDS: LACTATED RINGERS 1,000 ML 30 ML IV CONT ×2 (10:20)
--- NOTE | 2021-06-03 10:28 | SUR.OPER ---
Specimen sent with Jenniferseth WINSTON. Received by Angela in the Lab at 1025.
[2021-06-03 10:29] LABS: Mean Corpuscular HGB Conc 31.7 g/dl (32-36); Mean Corpuscular Hemoglobin 28.8 pg (26-34); Platelet Count Result 172 k/mm3 (150-375); Red Blood Count 2.22 M/mm3 (4.2-5.4); Red Cell Distribution Width 12.9 % (11.5-14.5); White Blood Count 7.8 K/mm3 (4.5-10.0)
[2021-06-03 10:33] LABS: Hematocrit 20.2 % (37.0-47.0); Hemoglobin 6.4 g/dL (12.0-15.0)
[2021-06-03] MEDS: fentaNYL CITRATE INJ (*CRX) 100 MCG/2 ML VIAL 25 MCG IV PUSH ×5 (10:46→11:35)
[2021-06-03] MEDS: SODIUM CHLORIDE 0.9% IV 250 ML 30 ML IV CONT ×2 (11:07→12:59)
--- NOTE | 2021-06-03 12:05 | SUR.PHASEI ---
PT VITALS HAVE BEEN STEADY. 1 UNIT OF PBRC INFUSED. REPORT GIVEN TO RN IN OB. TRANSFERED WITHOUT ISSUE.
[2021-06-03] MEDS: TUBING, BLOOD PLUM PUMP TUBING 1 EACH XX (12:28)
[2021-06-03] MEDS: MORPHINE SULFATE (*CRX) 2 MG/ML INJ IV PUSH (13:01)
[2021-06-03] MEDS: HYDROcodone/acetaminophen (*CRX) 10-325 MG TABLET 1 TAB PO ×2 (13:26→21:27)
--- NOTE | 2021-06-03 13:42 | PC.NURSE ---
1340- Tracy Catheter initiated. Dr. Fulton at bedside, vag packing removed.
[2021-06-03] MEDS: FAMOTIDINE 20 MG/2 ML VIAL IV PUSH (13:48)
[2021-06-03] MEDS: DOXYCYCLINE 100 MG/NS 100 ML 100 MG/100 ML BAG IVPB (15:10)
--- NOTE | 2021-06-03 16:37 | PC.NURSE ---
1630- Spoke to Dr. Fulton, orders for H&H at 2100 and 0500. Regular diet. Sales to remain in until morning, unless patient desires for it to be taken out. Patient able to ambulate as desired.
--- NOTE | 2021-06-03 17:43 | PC.NURSE ---
Share folder given. Share form filled out and placed in Marcus Orozco box.
--- NOTE | 2021-06-03 17:53 | PC.NURSE ---
1750- Spoke with Marcus Ceron, will see patient tomorrow morning.
[2021-06-03 21:38] LABS: Hematocrit 23.5 % (37.0-47.0); Hemoglobin 7.9 g/dL (12.0-15.0)
--- NOTE | 2021-06-03 22:16 | PC.NURSE ---
Patient assisted to restroom to perform pericare. Patient tolerated ambulation well. Tracy catheter removed per patient request. Urine hat placed on toilet. Bed linen changed by RN. Peripad changed and new gown applied. Plan of care discussed. All questions/concerns addressed. Patient verbalized understanding and agrees with plan of care. Per patient, patient going to try to sleep until next blood draw in AM. Informed patient to call out if she needs assistance ambulating to restroom.
--- NOTE | 2021-06-04 02:21 | PC.NURSE ---
Patient up ambulating hallway at 0200. Patient tolerated ambulation well without assist. Fresh water provided. Patient able to urinate at this time. RN documented urine in output flowsheet.
[2021-06-04] MEDS: HYDROcodone/acetaminophen (*CRX) 10-325 MG TABLET 1 TAB PO (05:12)
[2021-06-04 05:13] VITALS: PULSE 85; O2SAT 99
[2021-06-04 05:14] VITALS: BP 117/40; PULSE 73
[2021-06-04 05:42] LABS: Hemoglobin 7.5 g/dL (12.0-15.0)
[2021-06-04 08:03] VITALS: BP 103/53; PULSE 76
[2021-06-04 08:10] VITALS: BP 103/53; PULSE 76; RESP 16; TEMP 36.8
[2021-06-04] MEDS: FAMOTIDINE 20 MG TABLET PO (09:02)
--- NOTE | 2021-06-04 10:09 | PC.NURSE ---
1010--Dr. Fulton at BS to see pt., discussing POC with pt.
--- NOTE | 2021-06-04 10:19 | PM.DS ---
DS: Admitting Diagnosis Discharge Date 06/04/21 Admitting Diagnosis early loss acute blood loss anemia DS: Summary Hospital Course Hospital Course: 30 yo who presented with early loss and acute blood loss anemia. Pt was found to be hemorrhaging vaginally in the ED. Pelvic US showed no identifiable IUP. Pt underwent emergent suction D&C. She received 2 doses of TXA and 2 units of pRBC. Her hgb stabilized. Her VSS stabilized. Pt is asymptomatic this AM. She has some abdominal pain that is controlled with PO medication. Status at Discharge Overall status at discharge: patient is back to baseline Time Spent with Patient Time attestation: Total time spent providing and/or coordinating discharge services: Time spent: Less than 30 minutes Exam Const: General: cooperative, comfortable and no acute distress Resp: Effort & Inspection: normal respiratory effort and able to speak in complete sentences Cardio: Rate: regular rate Rhythm: regular rhythm GI: Inspection: normal to inspection and non-distended GI Palp: Yes abdominal tenderness Skin: General skin exam: normal color and no rashes or lesions noted Neuro: General: patient oriented x3 Extrem: General: normal to inspection and full ROM Psych: Appearance: grossly normal Mental Status: mental status grossly normal DS: Data Data Completed and Pending Pending studies at discharge: Pending at discharge 06/03/21 09:53 Surgical [PTH] Routine Labs on day of discharge: Labs from last 24 hours 06/04/21 06/03/21 06/03/21 05:05 21:26 12:30 WBC RBC Hgb 7.5 L 7.9 L Hct 23.0 L 23.5 L MCV MCH MCHC RDW Plt Count MPV PT Cancelled INR Cancelled APTT Cancelled Fibrinogen Cancelled Blood Type Antibody Screen Doses of RhIg Required Crossmatch 06/03/21 06/03/21 10:08 05:45 WBC 7.8 RBC 2.22 L Hgb 6.4 L* D Hct 20.2 L* MCV 91.0 MCH 28.8 MCHC 31.7 L RDW 12.9 Plt Count 172 MPV 10.0 PT INR APTT Fibrinogen Blood Type O Positive Antibody Screen Negative Doses of RhIg Required 0 Crossmatch See Detail Discharge Plan Discharge Discharging Clinician: Nikita Fulton Patient Disposition: Home, Self-Care Activity: as tolerated and pelvic rest Diet: regular Patient Instructions: Dilation and Curettage (DC) Stand Alone Forms: General Discharge Information Follow-up/Referrals: Damian,Alen Pal MD [Primary Care Provider] - Nikita Fulton MD [Physician] - 2 Weeks Discharge Medications: New hydrocodone-acetaminophen 5-325 mg tablet 1 tablet PO Q6H PRN (Reason: pain) Qty: 30 RF: 0 ibuprofen 600 mg tablet 600 mg PO Q6H PRN (Reason: pain) Qty: 30 RF: 0 acetaminophen 500 mg capsule 500 mg PO Q6H PRN (Reason: pain) Qty: 30 RF: 0 ferrous sulfate [iron] 325 mg (65 mg iron) tablet 325 mg PO DAILY Qty: 60 RF: 0 Continued ipratropium bromide 42 mcg (0.06 %) spray,non-aerosol 2 spray intranasal QID Qty: 15 RF: 0 nifedipine 30 mg tablet extended release 24 hr 30 mg PO DAILY RF: 0 aspirin 81 mg tablet,delayed release (DR/EC) 324 mg PO DAILY RF: 0 nitrofurantoin monohyd/m-cryst 100 mg capsule 100 mg PO BID RF: 0 PNV cmb#95-ferrous fumarate-FA [] 28 mg iron- 800 mcg Tablet 1 tablet PO DAILY RF: 0 Date of admission: 06/03/21 12:07 Primary Care Provider: Alen Josue Admitting Provider: Nikita Fulton Attending physician on admission: Nikita Fulton Condition: Serious
[2021-06-04] MEDS: HYDROcodone/acetaminophen (*CRX) 5-325 MG TABLET 1 TAB PO (10:29)
--- NOTE | 2021-06-04 10:51 | PC.NURSE ---
Share note; visited with pt and FOB today. Share program and support presented; mother and FOB seem open to share support. Share consent has been signed. Mother talkative, FOB more quiet; mother verbalizes that she feels good today because she is not having pain or bleeding. She talked openly about events of yesterday, pain, bleeding, surgery. Both parents unemotional at this time. Briefly talked about emotional ups and downs and many emotions with / loss; encouraged lots of talking together, as well as reaching out to family members, her Dr. and Share support. Mother given small memory box and several Share momentos. She reports having read through the Share folder of information she was given. Share support committed to her, and plan to f/u by phone call next week. Pt agreed. She is planning discharge home today.
--- NOTE | 2021-06-09 11:49 | W.PM.PROC2 ---
Procedure Note - Detailed Date of Procedure 06/03/21 Pre-op Diagnosis early loss vaginal bleeding Post-op Diagnosis same Procedure Performed suction D&C Surgeon Nikita Fulton MD Anesthesia general Indications spontaneous missed on pelvic US Findings intrauterine products of conception Description of Procedure The patient was taken to the operating room after a missed had been noted on on transvaginal ultrasound. The risks, benefits and alternatives of the procedure were reviewed with the patient and informed consent was obtained. The patient was taken to the OR and anesthesia was noted to be adequate. The patient was placed in the dorsolithotomy position. Pelvic exam was performed with findings noted above. The patient was prepped and draped in the usual sterile fashion. Sterile speculum was placed in the vagina and the cervix was grasped with a tenaculum. The cervix was dilated further to allow for passage of a 8 mm suction curette. The 8 mm suction curette was gently advanced to the fundus, suction was activated, and the tip was rotated while being withdrawn to clear the uterus of products. This suction process was repeated 3 additional times due to the quantity of material in the uterus. The sharp curette was introduced and advanced to the fundus to remove any remaining products. The suction curette was reintroduced one final time to ensure all products had been removed. The tenaculum was removed. Good hemostasis was noted. Instrument, sponge, and sharp counts were correct. Patient tolerated the procedure well and was taken to the recovery room in stable condition. Estimated Blood Loss -300.0 Urine Output -50.0 Drains No Packing No Pathology yes (products of conception ) Complications Other complications (acute blood loss anemia) Condition stable Disposition PACU
== END 2021-06-04 11:00 | disposition home or self-care (01) ==
LOC: ANHED 09:04 → ANHSURGERY 09:26 → ANHOBPP 12:11
PROVIDERS: Admitting Provider Student in an Organized Health Care Education/Training Program; Emergency Provider Emergency Medicine; PCP Internal Medicine; Visit Provider Student in an Organized Health Care Education/Training Program
PROC: (CPT 59812; principal; 2021-06-03 09:30)
DX: O03.9 Complete or unspecified spontaneous abortion without complication (principal); Z3A.15 15 weeks gestation of pregnancy; D62 Acute posthemorrhagic anemia; O99.332 Smoking (tobacco) complicating pregnancy, second trimester; I95.9 Hypotension, unspecified; R00.0 Tachycardia, unspecified
CPT/HCPCS: 59812; 36415; 36430; 76801; 80053; 84702; 85014; 85018; 85025; 85027; 85461; 85610; 85730; 86920; 88264; 88305; 96361; 96374; 96375; 96376; 99285; A9270; G0378; G0379; J2250; J2270; J2405; J2704; J3010; J7030; J7050; J7120; P9016

== ENCOUNTER 2021-07-14 20:26 | Observation (INO) | payer OTHER, SELFPAY ==
--- NOTE | ~2021-07-14 | XR_ITS ---
EXAMINATION: XR chest 2V EXAM DATE: 07/15/2021 00:39 INDICATION: Hypertension. TECHNIQUE: Frontal and lateral projections of the chest obtained and reviewed. Comparison is made to prior examination from 12/10/2020. FINDINGS: The lungs are clear. There are no pleural effusions. The cardiomediastinal silhouette is within normal limits. There is no pneumothorax suspected. The bones and soft tissues are unremarkab le. IMPRESSION: No acute cardiopulmonary findings. Reviewed, dictated and finalized at location D.
--- NOTE | ~2021-07-14 | US_ITS ---
EXAMINATION: US pelvic complete w TV EXAM DATE: 07/15/2021 14:01 INDICATION: Abnormal uterine bleeding. TECHNIQUE: Pelvic transabdominal and transvaginal sonogram was performed. There are multiple graysca le and Doppler images available for interpretation. Correlation made to CT scan from earlier same keli e, and pelvic obstetrical ultrasound 06/03/2021 FINDINGS: Uterus measures 9.3 x 6.2 x 5.1 cm, with a heterogeneous focal appearing region which appe ars to be myometrial measuring 4.0 x 4.8 x 4.1 cm, likely correlating to the left fundal adnexal mass like region. This is most likely a fibroid. Endometrium appears to be about 9 mm in thickness, interv al decrease in thickness compared to previous study. No intrauterine or extrauterine identi fied. Right ovary measures 4.4 x 3.1 x 1.8 cm. Left ovary not identified. Small free pelvic fluid. IMPRESSION: 1. Partially exophytic left fundal mass likely fibroid. 2. Normal endometrial measurement. Reviewed, dictated and finalized at location B.
--- NOTE | ~2021-07-14 | CT_ITS ---
EXAMINATION: CT abdomen pelvis wo con EXAM DATE: 07/15/2021 00:46 INDICATION: Missed . Vaginal Bleeding. Miscarriage 06/03/21. TECHNIQUE: Spiral CT of the abdomen and pelvis was performed without contrast. Axial, coronal and s agittal images of the abdomen and pelvis were reviewed. The dose-length product (DLP) for this exami nation was 1563.22 mGy-cm. The exposure was tailored according to patient size (auto mA exposure con trol), and iterative reconstruction (ASIR) was used as additional dose reduction technique. Correlati on is made to obstetrical ultrasound 06/03/2021. FINDINGS: There is hepatic steatosis without suspicious focal lesion identified. Spleen, adrenal glan ds, pancreas are unremarkable. Gallbladder is unremarkable. No biliary obstruction. There is punct ate left inferior calyceal stone. There is mass which appears to be at the left uterine fundus, coul d be fibroid or ovarian, region measuring about 5 cm. Recommend correlation with pelvic sonogram. Th e bladder is unremarkable. There is no retroperitoneal or pelvic lymphadenopathy. The appendix is normal. There are surgical changes consistent with gastric sleeve procedure. There i s mild scattered colonic diverticulosis. There is no adjacent inflammatory change to suggest diverti culitis. There is expected amount of colonic stool. No free intraperitoneal gas. The heart is nor mal in size. There are no pericardial or pleural effusions. The lung bases are unremarkable. The b ones are unremarkable. IMPRESSION: 1. Left fundal/adnexal masslike region which could be 5 cm fibroid, or ovarian origin. Consider pelv ic sonogram. 2. Mild colonic diverticulosis. 3. Punctate left nephrolithiasis. No obstructive nephropathy. Reviewed, dictated and finalized at location D. IMPRESSION: 1. Left fundal/adnexal masslike region which could be 5 cm fibroid, or ovarian origin. Consider pelvic sonogram. 2. Mild colonic diverticulosis. 3. Punctate left nephrolithiasis. No obstructive nephropathy.
--- NOTE | ~2021-07-14 | CT_ITS ---
EXAMINATION: CT brain wo con DATE: 07/14/2021 23:18 INDICATION: Dizziness. TECHNIQUE: Computed tomography (CT) of the head was performed without intravenous contrast. The mA wa s adjusted according to patient size. Iterative reconstruction technique was employed. The dose-lengt h product was 605.33 mGy-cm. COMPARISON: Head CT 04/14/2015 FINDINGS: There is no intracranial hemorrhage, acute infarction, or abnormal intracranial mass lesion . The ventricles are normal in size. There is mild mucosal thickening in the paranasal sinuses. The o rbits are normal. The mastoid air cells are normal. IMPRESSION: 1. Normal brain. Reviewed, dictated and finalized at location A. IMPRESSION: 1. Normal brain.
--- NOTE | ~2021-07-14 | US_ITS ---
EXAMINATION: US renal BI EXAM DATE: 07/15/2021 14:01 INDICATION: Proteinuria. TECHNIQUE: Multiple grayscale and Doppler images of the kidneys were obtained (by a technologist who performed the scan) and subsequently reviewed. There is no prior study for comparison. FINDINGS: Right kidney: There is normal contour and echogenicity. It measures 8.3 x 4.4 x 5.3 centimeters. Th ere are no focal renal lesions identified. There is no hydronephrosis. Left kidney: There is normal contour and echogenicity. It measures 10.0 x 4.8 x 5.6 centimeters. Th ere are no focal renal lesions identified. There is no hydronephrosis. Bladder unremarkable. IMPRESSION: Sonographically unremarkable kidneys. Reviewed, dictated and finalized at location B.
[2021-07-14 20:59] VITALS: BP 235/104; PULSE 84; RESP 16; TEMP 36.7; O2SAT 100
--- NOTE | 2021-07-14 21:41 | ECG_ITS ---
Measurements Intervals Marquez Rate: 72 P: 19 OR: 133 QRS: 26 QRSD: 96 T: 16 QT: 392 QTc: 430 Interpretive Statements SINUS RHYTHM BASELINE ARTIFACT ESPECIALLY IN V6 NORMAL ECG NO PREVIOUS ECG AVAILABLE FOR COMPARISON Electronically Signed On 07-15-2021 17:06:23 CDT by David Saucedo M.D.
--- NOTE | 2021-07-14 21:45 | ED.FEMALEGU ---
HPI - Female Genitourinary General Chief complaint: Vaginal Bleeding Stated complaint: vaginal bleeding Time Seen by Provider: 07/14/21 21:45 Source: patient Mode of arrival: ambulatory Limitations: no limitations History of Present Illness HPI Narrative: The patient is a 30 yo with a history of early loss for which she was seen in the ER on 06/03, in which she was having acute hemorrhage and acute blood loss anemia for which she was transfused TXA and 2 units PRBCs. Patient underwent emergent D&C with Dr. Fulton. She was ultimately discharged home with antibiotics and iron tablets. Patient states she has felt lightheaded, dizzy with standing over the past several days. She reports daily heavy bleeding over the past 5 weeks. She denies any significant abdominal pain, pelvic cramping. She denies flank pain. She reports mild urinary frequency. She denies fever, chills. She denies any syncopal events. She reports fatigue. Patient states she has been compliant with her medications. She denies any other vaginal discharge. She states with standing she sees stars. She reports dizziness only with standing. Patient states that she has used 2 pads today. She denies soaking through 1 pad per hour. Patient states that she has been taking her iron tablets. States she is unsure if she has been taking her antibiotic or Procardia. She states she did run out of some of her medications because the pharmacy could not fully fill the prescription. Related Data Home Medications Medication Instructions Recorded Confirmed PNV cmb#95-ferrous fumarate-FA 1 tablet PO DAILY 12/06/19 12/06/19 [] aspirin 324 mg PO DAILY 06/03/21 nifedipine 30 mg PO DAILY 06/03/21 nitrofurantoin monohyd/m-cryst 100 mg PO BID 06/03/21 Allergies Allergy/AdvReac Type Severity Reaction Status Date / Time No Known Allergies Allergy Verified 07/14/21 20:58 Review of Systems Review of Systems: CONSTITUTIONAL: Denies fever, chills, or sweats. EYES: Denies visual changes, redness, or discharge. ENT: Denies rhinorrhea, congestion, sore throat, or otalgia. CARDIOVASCULAR: Denies chest pain, palpitations, or edema. RESPIRATORY: Denies cough or dyspnea. GASTROINTESTINAL: Denies abdominal pain, nausea, vomiting, or diarrhea. GENITOURINARY: Reports urinary frequency. Reports vaginal bleeding. SKIN: Denies rash or itching. MUSCULOSKELETAL: Denies back pain, joint pain, or myalgia. NEUROLOGIC: Denies headache, numbness, or weakness. Reports dizziness and lightheadedness with standing. Denies room spinning sensation. Denies current dizziness. [facility] Past Medical History Medical History (Updated 07/15/21 @ 00:54 by Alanna Mauro MD) Morbid obesity Surgical History Surgical History History of Family History Family History Sibling Cancer Grandparent Cancer Social History Social History Smoking status: Current every day smoker Tobacco type: cigarettes Second hand tobacco smoke exposure: Yes Substance use: never Gender identity (if verbalized by the patient): Female Spiritual care concerns: No Exam Narrative: GENERAL: Awake, alert, conversant HEAD: Normocephalic, atraumatic. EYES: 2+ PERRLA and EOMI. ENT: Nares clear, no rhinorrhea or epistaxis. Mucous membranes moist. NECK: Supple. CHEST: No respiratory distress, breathing even and non labored HEART: Regular rate, sinus rhythm ABDOMEN: Obese, Non distended, non tender EXTREMITIES: Normal range of motion. No edema. : Labia majora and minora normal without lesions. Vagina with small amount of blood. No cervical motion tenderness. No adnexal tenderness or fullness bilaterally. No other discharge present. SKIN: Pale, warm, dry, no rash. NEURO:No focal deficits. Alert and oriented x3. Finger
[2021-07-14 22:15] LABS: Basophils Percent Auto 0.3 % (0.2-1.2); Eosinophils Absolute Auto 0.6 K/mm3 (0-0.3); Eosinophils Percent Auto 6.7 % (0-4.4); Hematocrit 27.3 % (37.0-47.0); Hemoglobin 8.2 g/dL (12.0-15.0); Immature Granulocyte Absolute 0.03 K/mm3 (0.00-0.031); Immature Granulocyte Percent A 0.3 % (0-0.5); Lymphocytes Absolute Auto 1.89 K/mm3 (0.9-3.2); Lymphocytes Percent Auto 20.1 % (18.3-44.2); Mean Corpuscular Hemoglobin 24.7 pg (26-34); Mean Corpuscular Volume 82.2 fl (80-100); Mean Platelet Volume 9.2 fl (7.4-10.4); Monocytes Absolute Auto 0.5 K/mm3 (0.1-0.6); Monocytes Percent Auto 5.4 % (2.6-8.5); Neutrophils Absolute Auto 6.3 K/mm3 (1.3-6.7); Neutrophils Percent Auto 67.2 % (45.5-73.1); Platelet Count Result 362 k/mm3 (150-375); Red Blood Count 3.32 M/mm3 (4.2-5.4); White Blood Count 9.4 K/mm3 (4.5-10.0)
[2021-07-14 22:20] VITALS: BP 170/78; PULSE 78; RESP 18; O2SAT 98
[2021-07-14 22:25] LABS: Alanine Aminotransferase 26 U/L (4-35); Albumin Level 3.8 g/dL (3.5-5.1); Alkaline Phosphatase 97 U/L (38-126); Anion Gap 8 mmol/L (8-16); Aspartate Amino Transferase 42 U/L (14-36); Bilirubin,Total 0.6 mg/dL (0.2-1.3); Blood Urea Nitrogen 10 mg/dL (7-17); Calcium 8.1 mg/dL (8.4-10.2); Carbon Dioxide 25 mmol/L (22-30); Chloride 106 mmol/L (98-107); Estimated CRCL calculation 125 ml/min; Estimated Glomerular Filt Rate > 60; Glucose 83 mg/dL (65-110); Partial Thromboplastin Time 33.5 SECONDS (22.3-36.8); Potassium 3.2 mmol/L (3.4-5.0); Sodium 139 mmol/L (137-145)
[2021-07-14 22:31] LABS: INR 1.1; Prothrombin Time 13.5 Seconds (11.1-14.7)
[2021-07-14 22:34] LABS: Add Urine Microscopic? YES; Appearance Urine Cloudy (Clear); Bacteria Urine Trace /hpf; Bilirubin Urine Negative (Negative); Blood Urine 3+ (Negative); Color Urine Yellow (Yellow); Glucose Urine UA Negative (Negative); Ketones Urine Trace mg/dL (Negative); Leukocyte Esterase Ur 1+ LEU/UL (Negative); Nitrate Urine Positive (Negative); Protein Urine 1+ mg/dL (Negative); Specific Grav Ur 1.019 (1.001-1.035); Squamous Epithelial Cell Urine Moderate /hpf (Few); Urobilinogen Urine Negative mg/dL (<2.0); WBC Urine 51-75 /hpf
--- NOTE | 2021-07-14 23:13 | PC.NURSE ---
Report to Deneen Khan RN
[2021-07-14 23:16] LABS: Troponin I < 0.012 ng/mL (0.000-0.034)
[2021-07-14 23:28] VITALS: BP 204/107; PULSE 73; RESP 14; O2SAT 100
[2021-07-15] VITALS (10 sets, daily range): BP systolic 135–192; BP diastolic 78–120; PULSE 73–97; RESP 16–25; TEMP 36.2–36.8; O2SAT 98–100; BMI 44.7
--- NOTE | 2021-07-15 | ECHO_ITS ---
Patient Info Name: Betty Hannah Age: 30 years : 1990 Gender: Female Ht: 64 in Wt: 250 lbs BSA: 2.32 m2 HR: 91 bpm BP: 135 / 81 mmHg Heart Rhythm: Sinus Rhythm Technical Quality: Fair Exam Date: 07/15/2021 7:45 AM Exam Location: [facility] Patient Status: Outpatient Admit Date: 07/15/2021 Staff Ordering Physician: Anthony Villaseñor MD Damascener: Jeane Reed RDCS Attending Provider: Nikita Fulton MD Referring Physician: Kasi ARDON; Exam Type: CA echo doppler color flow Study Info Indications - Uncontrolled htn Complete two-dimensional, color flow and Doppler transthoracic echocardiogram is performed. Summary 1. Complete two-dimensional, color flow and Doppler transthoracic echocardiogram is performed. 2. Left ventricular chamber dimension is normal. 3. Left ventricular systolic function is normal, estimated at 60-65%. 4. There is mildly increased left ventricular wall thickness. 5. The left ventricular diastolic function is abnormal. 6. E/e' 12 is mildly elevated. 7. Left atrial chamber dimension is mildly enlarged. 8. There is trace tricuspid valve regurgitation. 9. Moderate pulmonary hypertension, estimated pulmonary arterial systolic pressure is 51 mmHg. 10. There is trace pulmonic regurgitation. Left Ventricle E/e' 12 is mildly elevated. Left ventricular chamber dimension is normal. Left ventricular systolic function is normal, estimated at 60-65%. There is mildly increased left ventricular wall thickness. The left ventricular diastolic function is abnormal. Right Ventricle Right ventricular systolic function is normal and with normal TAPSE 2.6 cm. Right ventricular chamber dimension is normal. Left Atria Left atrial chamber dimension is mildly enlarged. Right Atria Right atrial chamber dimension is normal. Aortic Valve The aortic valve is trileaflet. There is no aortic valve stenosis. There is no aortic valve regurgitation. Pulmonic Valve There is trace pulmonic regurgitation. Mitral Valve There is no mitral valve stenosis. There is no mitral valve regurgitation. Tricuspid Valve There is trace tricuspid valve regurgitation. Moderate pulmonary hypertension, estimated pulmonary arterial systolic pressure is 51 mmHg. Pericardium/Pleural There is no pericardial effusion. Inferior Vena Cava Normal inferior vena cava with >50% collapse upon inspiration consistent with normal right atrial pressure, 5 mmHg. Aorta The aortic root size at the sinus of Valsalva is normal. Left Ventricular Outflow Tract Name Value Normal LVOT 2D LVOT Diameter 2.0 cm LVOT Doppler LVOT Peak Gradient 7 mmHg LVOT Mean Gradient 3 mmHg LVOT VTI 23 cm LVOT VTI/AV VTI Ratio 0.7 LVOT Stroke Volume 76 ml LVOT CO 5.7 l/min LVOT CI 2.4 l/min/m2 Pulmonic Valve Name
[2021-07-15] MEDS: hydrALAZINE HCL 20 MG/ML VIAL 10 MG IV PUSH (00:33)
[2021-07-15 00:45] LABS: Beta HCG Quantitative < 2.39 mIU/ML
[2021-07-15] MEDS: POTASSIUM CHLORIDE 20 MEQ PACKET (FOR LIQUID) 40 MEQ PO (01:23)
[2021-07-15] MEDS: LORazepam INJ (*CRX) 2 MG/ML VIAL 0.5 MG IV PUSH (01:53)
--- NOTE | 2021-07-15 02:14 | ADMGEN ---
This patient, Betty Hannah, was admitted to IMU Room 213. Patient/family oriented to hospital policies and general routines including ID bracelet, bed and alarms, visiting hours, pain management, procedures, bathroom and other care routines, personal items, smoking policy, room service/diet, and visiting hours. Information on how to activate the Rapid Response Team has been discussed. Patient/Family are encouraged to report perceived risks to care and to ask questions if they do not understand what they are told or what they should do.
--- NOTE | 2021-07-15 03:03 | PM.IMHP ---
H&P: HPI History of Present Illness Date/Time: 07/15/21 03:03 Chief Complaint: Dizziness. Narrative: This is a 30-year-old female with past medical history significant for morbid obesity she is status post gastric sleeve surgery a year ago with roughly over 100 lb weight loss. Patient just recently had a miscarriage and she was released home after D&C however patient comes back today complaining of headache dizziness and ongoing vaginal bleeding now. Upon arrival to emergency room patient was found to have a systolic blood pressure in the 200's with diastolic in the 100's. Patient denies any leg swelling, chest pain, palpitations, shortness of breath, PND, orthopnea, sputum production, fevers, rigors or chills, however when I was visiting in with her she had subjective fever was feeling feverish. On her prior admission and discharge patient had been sent home on nifedipine but according to records patient has not been taking these. Patient denies any vision changes. And her 2 pregnancies were term pregnancies and with no complications however patient has had 2 miscarriages in between. Patient is been admitted for further evaluation, management and treatment. Review of Systems Review of Systems: Dizziness, frontal headache, vaginal bleed. Constitutional: Constitutional: Denies chills, Denies fever(s), Denies malaise, Denies night sweats and Denies weakness Eyes: Eyes: Denies change in vision ENT: Denies dysphagia, Denies vertigo, Reports dizziness, Denies nasal congestion, Denies nasal discharge, Denies nasal obstruction and Denies odynophagia Cardiovascular: Cardiovascular: Denies pedal edema, Denies edema, Denies claudication, Denies leg edema, Reports lightheadedness, Denies radiating jaw, neck or arm pain, Denies palpitations, Denies dyspnea, Denies dyspnea on exertion, Denies orthopnea and Denies paroxysmal nocturnal dyspnea Respiratory: Respiratory: Denies change in phlegm color, Denies chest congestion, Denies cough, Denies excessive phlegm production, Denies pain on inspiration, Denies dyspnea and Denies wheezing Gastrointestinal: Gastrointestinal: Denies abdominal pain, Denies dyspepsia, Denies heartburn, Denies diarrhea, Denies nausea and Denies vomiting Genitourinary: Genitourinary: Denies dysuria and Denies pelvic pain Comments: Vaginal bleed Integumentary/Breasts: Skin/Breast: Denies rash and Denies wounds Neurologic: Denies vertigo, Reports dizziness, Denies syncope, Denies focal weakness, Denies convulsions and Denies Sensory deficit (Neuro) Psychiatric: Psychiatric: Reports no additional psychiatric complaints and Reports as per HPI Endocrine: Endocrine: Denies cold intolerance, Denies heat intolerance, Denies polyphagia, Denies polydipsia and Denies palpitations Hematologic/Lymphatic: Hematologic/Lymphatic: Reports no additional hematologic/lymphatic complaints and Reports as per HPI Allergic/Immunologic: Allergic/Immunologic: Reports no additional allergic/immunologic complaints and Reports as per HPI [facility] Past Medical History Medical History (Updated 07/15/21 @ 05:49 by Anthony Villaseñor MD) Morbid obesity Surgical History Surgical History History of Family History Family History Sibling Cancer Grandparent Cancer Social History Social History Smoking status: Former smoker Tobacco type: cigarettes Second hand tobacco smoke exposure: Yes Alcohol intake: current Drinks per week: 1 Substance use: never Gender identity (if verbalized by the patient): Female Spiritual care concerns: No Meds Home Medications and Allergies Home Medications Medication Instructions Recorded Confirmed Type nifedipine 30 mg PO DAILY 06/03/21 07/15/21 History acetaminophen 500 mg PO Q6H PRN #30 cap 06/04/21 07/15/21 Rx ferrous pierce
[2021-07-15] MEDS: LORazepam INJ (*CRX) 2 MG/ML VIAL 1 MG IV PUSH (04:42)
[2021-07-15 07:50] LABS: Basophils Percent Auto 0.3 % (0.2-1.2); Eosinophils Absolute Auto 0.5 K/mm3 (0-0.3); Eosinophils Percent Auto 6.9 % (0-4.4); Hematocrit 23.9 % (37.0-47.0); Hemoglobin 7.2 g/dL (12.0-15.0); Immature Granulocyte Absolute 0.02 K/mm3 (0.00-0.031); Immature Granulocyte Percent A 0.3 % (0-0.5); Lymphocytes Absolute Auto 1.31 K/mm3 (0.9-3.2); Lymphocytes Percent Auto 18.8 % (18.3-44.2); Mean Corpuscular HGB Conc 30.1 g/dl (32-36); Mean Corpuscular Hemoglobin 24.6 pg (26-34); Mean Corpuscular Volume 81.6 fl (80-100); Mean Platelet Volume 8.9 fl (7.4-10.4); Monocytes Absolute Auto 0.4 K/mm3 (0.1-0.6); Monocytes Percent Auto 5.4 % (2.6-8.5); Neutrophils Absolute Auto 4.8 K/mm3 (1.3-6.7); Neutrophils Percent Auto 68.3 % (45.5-73.1); Platelet Count Result 293 k/mm3 (150-375); Red Blood Count 2.93 M/mm3 (4.2-5.4); Red Cell Distribution Width 15.1 % (11.5-14.5)
[2021-07-15 08:54] LABS: Anion Gap 4 mmol/L (8-16); Blood Urea Nitrogen 8 mg/dL (7-17); Calcium 7.8 mg/dL (8.4-10.2); Carbon Dioxide 27 mmol/L (22-30); Chloride 107 mmol/L (98-107); Estimated CRCL calculation 147 ml/min; Estimated Glomerular Filt Rate > 60; Glucose 82 mg/dL (65-110); Magnesium 1.5 mg/dL (1.6-2.3); Sodium 138 mmol/L (137-145)
[2021-07-15] MEDS: TRANEXAMIC ACID 1,000MG/ISO100 1,000 MG/100 ML BAG 200 MG IVPB (09:33)
[2021-07-15] MEDS: PANTOPRAZOLE 40 MG TABLET PO (09:33)
[2021-07-15] MEDS: FERROUS SULFATE 324 MG TABLET PO (09:34)
[2021-07-15] MEDS: ALPRAZolam (*CRX) 0.125 MG TABLET PO ×2 (09:34→13:46)
[2021-07-15] MEDS: NIFEdipine 30 MG TAB.ER.24 PO (09:34)
--- NOTE | 2021-07-15 10:08 | PM.GYNPNOP ---
[employer] - A/P Assessment and plan (1) Vaginal bleeding: Code(s): N93.9 - Abnormal uterine and vaginal bleeding, unspecified Status: Acute Assessment and Plan: Pt reports persistent daily vaginal bleeding since her D&C H/H .06/12 and .06/08 pt reports persistent light bleeding CT scan showed a 5cm mass in the fundus, possibly uterine fibroid pt given provera and TXA to stop acute bleeding will obtain pelvic US to evaluate uterine mass if bleeding is stable, will d/c home with outpatient follow up to discuss management of AUB (2) Symptomatic anemia: Code(s): D64.9 - Anemia, unspecified Status: Acute (3) Essential hypertension: Code(s): I10 - Essential (primary) hypertension Status: Acute Assessment and Plan: pt previously started on nifedipine but never started management per hospitalist pt given hydralazine PRN pt restarted on nifedipine Time Spent With Patient Time: Total time spent is greater than 50% in coordination of care (as documented) at patient's floor/unit and/or counseling patient: Time with patient: less than 15 minutes [employer]- PN:Subj Post-Op Subjective Date/time seen: 07/15/21 10:08 Interval history: 30 yo who presented to the ED for dizziness, fatigue, malaise in the setting of vaginal bleeding. Pt underwent suction D&C on 06/09/21 for early loss. Pt states that she has continued to have persistent vaginal bleeding. Pt states the volume will vary day to day. She states on her heaviest day she will go through 2-3 pads/day. Pt also noted to have acute severe hypertension. Pt admitted to hospital service for BP control. Review of Systems Review of Systems: All systems reviewed & are unremarkable except as noted in HPI and below Exam Const: General: cooperative and comfortable Resp: Effort & Inspection: normal respiratory effort and able to speak in complete sentences Cardio: Rate: regular rate Rhythm: regular rhythm GI: Inspection: normal to inspection and obesity GI Palp: No abdominal tenderness, Yes Soft to palpation, No Tenderness to palpation present (GI), No Guarding due to palpation present (GI) and No Rebound tenderness present [employer] - PN: Obj Data Vital Signs Vital Signs: Vital Signs - 24 hr 07/14/21 20:59 07/14/21 22:20 07/14/21 23:28 Temperature 36.7 C Pulse Rate 84 78 73 Respiratory Rate 16 18 14 Blood Pressure 235/104 H 170/78 H 204/107 H Pulse Oximetry 100 98 100 07/15/21 00:25 07/15/21 00:59 07/15/21 02:00 Temperature Pulse Rate 73 85 85 Respiratory Rate 16 17 25 H Blood Pressure 192/106 H 189/120 H Pulse Oximetry 100 100 07/15/21 02:14 07/15/21 04:00 07/15/21 06:00 Temperature 36.5 C 36.6 C Pulse Rate 97 91 91 Respiratory Rate 20 16 Blood Pressure 152/101 H 135/81 Pulse Oximetry 100 98 07/15/21 08:00 Temperature 36.2 C L Pulse Rate 82 Respiratory Rate 16 Blood Pressure 138/78 Pulse Oximetry 100 Intake/Output Intake/Output: Intake & Output 07/12/21 07/13/21 07/14/21 07/15/21 23:59 23:59 23:59 23:59 Intake Total 150 Balance 150 Meds/Results Medications: Active Medications Generic Name Dose Route Start Last Admin Trade Name Freq PRN Reason Stop Dose Admin Acetaminophen 650 mg 07/15/21 00:14 Acetaminophen 325 Mg Tablet PO Q4H PRN Mild Pain (1-3) or Fever Acetaminophen 500 mg 07/15/21 03:00 Acetaminophen 500 Mg Tablet PO Q6H PRN Pain Rated 1-3 Alprazolam 0.125 mg 07/15/21 03:00 07/15/21 09:34 Alprazolam (*Crx) 0.125 Mg Tablet PO 0.125 mg TID PRN Administration Anxiety Ferrous Sulfate 324 mg 07/15/21 08:00 07/15/21 09:34 Ferrous Sulfate 324 Mg Tablet PO 324 mg DAILY@0800 ASHLEY Administration Hydralazine HCl 10 mg 07/15/21 03:02 Hydralazine Hcl 20 Mg/Ml Vial IV PUSH Q8H PRN Blood Pressure - High RUV=[id number] Ceftriaxone Sodium/Dextrose 1 gm in 50 mls @ 100 mls/hr 07/15/21 21:00 Rocephin 1
[2021-07-15 12:20] LABS: Hematocrit 24.6 % (37.0-47.0); Hemoglobin 7.4 g/dL (12.0-15.0)
--- NOTE | 2021-07-15 13:02 | PM.IMPN ---
Progress Note: A&P Assessment and Plan (1) Malignant hypertension: Code(s): I10 - Essential (primary) hypertension Status: Acute Assessment and Plan: BP 235/104 on admission treated with hydralazine. EKG normal. CXR clear. There is concern for noncompliance with medication. Nifedipine resumed. BP better at 158/86. no neurologic symptoms; she states the intermittent dysconjugate gaze is more chronic. Continue nifedipine. Hydralazine 10 mg IV push available p.r.n. Recommend she follow up with [facility] after discharge. Follow up on renal US (could not get the renal doppler). Echo pending. Would not push blood pressure down any further at this tpoint since she is assomptomatic. (2) Abnormal urinalysis: Code(s): R82.90 - Unspecified abnormal findings in urine Status: Acute Assessment and Plan: Urinalysis noted. Likely secondary to uncontrolled hypertension, vaginal bleeding and obesity. Urine culture pending. Patient on Rocephin currently. (3) Vaginal bleeding: Code(s): N93.9 - Abnormal uterine and vaginal bleeding, unspecified Status: Acute Assessment and Plan: Patient had a spontaneous Ab with bleeding requiring 2U PRBC on 06/03/21. No brisk bleeding but having continuous vaginal bleeding. Hgb 8.2 but dropped to [address] abdomen and pelvis performed showing left fundal/adnexal masslike region which could be 5 cm fibroid, or ovarian origin. Pelvic US pending. Tranexamic acid once and Provera started. (4) Acute blood loss anemia: Code(s): D62 - Acute posthemorrhagic anemia Status: Acute Assessment and Plan: As above. Hemoglobin stable in the 7 range. Continue iron replacement. Monitor H&H and transfuse as necessary (5) Morbid obesity: Code(s): E66.01 - Morbid (severe) obesity due to excess calories Status: Inactive Assessment and Plan: BMI 45. Patient is status post gastric sleeve surgery. Healthy lifestyle encouraged. (6) Spontaneous : Code(s): O03.9 - Complete or unspecified spontaneous without complication Status: Acute Assessment and Plan: BHCG <2.39. As above. (7) DVT prophylaxis: Code(s): Z29.9 - Encounter for prophylactic measures, unspecified Status: Acute Assessment and Plan: SCDs Subjective Date/time seen: 07/15/21 13:02 Interval history: 30yo who presented to the ED for dizziness, fatigue, malaise in the setting of vaginal bleeding. Pt underwent suction D&C on 06/09/21 for early loss. Patient feels better. No lightheadedness. no CP or SOB. The dizziness and 'seeing stars' has resolved. She denies financial problems getting her medications. Still soaking pads this morning Exam Narrative: AF 98.2 158/86 93 18 100% ra Gen - NARD Chest - CTA bilaterally, nml RR CV - RRR S1/S2. Tele showing no significant dysrhythmias Abd - Soft, obese, NT Ext - No pedal edema Neuro - Alert and oriented. Nonfocal exam. Right intermittently turns in Psych - Nml mood and affect Skin - Warm and dry Objective Data Vital Signs Vital Signs: Vital Signs - 24 hr 07/14/21 20:59 07/14/21 22:20 07/14/21 23:28 Temperature 98.1 F Pulse Rate 84 78 73 Respiratory Rate 16 18 14 Blood Pressure 235/104 H 170/78 H 204/107 H Pulse Oximetry 100 98 100 07/15/21 00:25 07/15/21 00:59 07/15/21 02:00 Temperature Pulse Rate 73 85 85 Respiratory Rate 16 17 25 H Blood Pressure 192/106 H 189/120 H Pulse Oximetry 100 100 07/15/21 02:14 07/15/21 04:00 07/15/21 06:00 Temperature 97.7 F 97.8 F Pulse Rate 97 91 91 Respiratory Rate 20 16 Blood Pressure 152/101 H 135/81 Pulse Oximetry 100 98 07/15/21 08:00 07/15/21 10:00 07/15/21 12:00 Temperature 97.1 F L 98.2 F Pulse Rate 88 96 93 Respiratory Rate 16 18 Blood Pressure 138/78 158/86 H Pulse Oximetry 100 100 Intake/Output Intake/Output: Intake & Output 03
[2021-07-15] MEDS: POTASSIUM CHLORIDE 20 MEQ TABLET 40 MEQ PO (14:28)
[2021-07-15] MEDS: MAGNESIUM OXIDE 400 MG TABLET PO (14:28)
--- NOTE | 2021-07-26 07:41 | PC.NURSE ---
Echo report faxed to Dr. De Leon. Dr. Pulido aware of findings.
== END 2021-07-15 15:13 | disposition home or self-care (01) ==
LOC: ANHED 07-15 00:14 → ANHIMU 07-15 00:31
PROVIDERS: Internal Medicine; Admitting Provider Student in an Organized Health Care Education/Training Program; Emergency Provider Emergency Medicine; PCP Internal Medicine; Visit Provider Student in an Organized Health Care Education/Training Program
DX: I10 Essential (primary) hypertension (principal); N93.9 Abnormal uterine and vaginal bleeding, unspecified; D62 Acute posthemorrhagic anemia; E66.01 Morbid (severe) obesity due to excess calories; R82.90 Unspecified abnormal findings in urine; F17.210 Nicotine dependence, cigarettes, uncomplicated; Z98.84 Bariatric surgery status
CPT/HCPCS: 36415; 70450; 71046; 74176; 76775; 76830; 76856; 80048; 80053; 81001; 81025; 83735; 84443; 84484; 84702; 85014; 85018; 85025; 85610; 85730; 87077; 87086; 87088; 87186; 93005; 93306; 96365; 96374; 96375; 96376; 99285; A9270; G0378; G0379; J0360; J0696; J2060

== ENCOUNTER 2022-10-03 12:57 | Inpatient (IN) | payer OTHER, SELFPAY ==
[2022-10-03] VITALS (78 sets, daily range): BP systolic 126–231; BP diastolic 64–122; PULSE 53–84; RESP 16–20; TEMP 36.6; O2SAT 96–100; BMI 49.1
--- NOTE | 2022-10-03 12:57 | LDADM ---
This patient, Betty Hannah, was admitted to [facility] on 10/03/22 at 12:57. Plans for labor, pain management and were discussed with patient. Patient/family oriented to hospital policies and general routines including ID bracelet, bed and alarms, visiting hours, pain management, procedures, bathroom and other care routines, personal items, smoking policy, room service/diet and guest tray routines, infant security routines, and visiting hours. Patient/Family are encouraged to report perceived risks to care and to ask questions if they do not understand what they are told or what they should do. See OBIX for further documentation.
[2022-10-03 13:49] LABS: Basophils Percent Auto 0.4 % (0.2-1.2); Eosinophils Absolute Auto 0.4 K/mm3 (0-0.3); Eosinophils Percent Auto 5.4 % (0-4.4); Hemoglobin 8.9 g/dL (12.0-15.0); Immature Granulocyte Absolute 0.02 K/mm3 (0.00-0.031); Immature Granulocyte Percent A 0.3 % (0-0.5); Lymphocytes Percent Auto 16.6 % (18.3-44.2); Mean Corpuscular HGB Conc 30.7 g/dl (32-36); Mean Corpuscular Hemoglobin 24.1 pg (26-34); Mean Corpuscular Volume 78.6 fl (80-100); Mean Platelet Volume 9.8 fl (7.4-10.4); Monocytes Absolute Auto 0.3 K/mm3 (0.1-0.6); Monocytes Percent Auto 3.6 % (2.6-8.5); Neutrophils Absolute Auto 5.3 K/mm3 (1.3-6.7); Neutrophils Percent Auto 73.7 % (45.5-73.1); Platelet Count Result 249 k/mm3 (150-375); Red Blood Count 3.69 M/mm3 (4.2-5.4); Red Cell Distribution Width 22.4 % (11.5-14.5); White Blood Count 7.2 K/mm3 (4.5-10.0)
[2022-10-03] MEDS: BETAMETHASONE SOD PHOS/ACETATE 30 MG/5 ML VIAL 12 MG IM (13:55)
[2022-10-03 14:36] LABS: Alanine Aminotransferase 12 U/L (6-35); Albumin Level 3.1 g/dL (3.5-5.1); Alkaline Phosphatase 102 U/L (38-126); Anion Gap 4 mmol/L (8-16); Aspartate Amino Transferase 19 U/L (14-36); Bilirubin,Total 0.4 mg/dL (0.2-1.3); Blood Urea Nitrogen 9 mg/dL (7-17); Calcium 8.2 mg/dL (8.4-10.2); Carbon Dioxide 24 mmol/L (22-30); Chloride 107 mmol/L (98-107); Estimated CRCL calculation 133 ml/min; Estimated Glomerular Filt Rate > 60; Glucose 73 mg/dL (65-110); Potassium 3.2 mmol/L (3.4-5.0); Sodium 135 mmol/L (137-145); Uric Acid 6.5 mg/dL (2.5-7.5)
[2022-10-03 14:48] LABS: Collection Time Urine 24 HOURS
[2022-10-03 14:53] LABS: Total Volume 24 Hour Urine 500 ml
[2022-10-03] MEDS: LABETALOL HCL INJ 100 MG/20 ML VIAL 20 MG IV PUSH (14:54)
[2022-10-03] MEDS: LABETALOL HCL INJ 100 MG/20 ML VIAL 40 MG IV PUSH ×2 (15:07→16:35)
[2022-10-03 15:08] LABS: Total Protein Urine 24 Hr 70 mg/24hr (28-141); Total Protein Urine Random 14 mg/dL
[2022-10-03 15:09] LABS: Creatinine Urine 187.2 mg/dL; Patient Weight 286 Lbs
[2022-10-03 15:13] LABS: Creatinine Clearance Urine 70.8 ml/min (75-125); Serum Creat 0.7; Total Volume 24 Hour Urine 500 ml
--- NOTE | 2022-10-03 15:41 | WPDANESEPPF ---
Anes - Initial Pre Proc Eval Date/Time: 10/03/22 15:41 Surgeon: Keila Mujica MD Pre Op Diagnosis: [facility] Patient Data Age: 32 Gender: F Height: 1.63 m Weight: 130 kg Last Vital Signs Pulse 84 10/03/22 15:33 BP 158/91 H 10/03/22 15:33 Allergies Allergy/AdvReac Type Severity Reaction Status Date / Time No Known Allergies Allergy Verified 09/25/22 12:27 Home Medications Medication Instructions Recorded Confirmed Type vitamins-iron fumarate 65 1 tablet PO DAILY 08/21/22 09/25/22 History mg iron-folic acid 1 mg tablet Laboratory Tests 10/02/22 10/02/22 10/03/22 07:30 07:30 13:26 WBC 7.2 K/mm3 (4.5-10.0) RBC 3.69 L M/mm3 (4.2-5.4) Hgb 8.9 L g/dL (12.0-15.0) Hct 29.0 L % (37.0-47.0) MCV 78.6 L fl (80-100) MCH 24.1 L pg (26-34) MCHC 30.7 L g/dl (32-36) RDW 22.4 H % (11.5-14.5) Plt Count 249 k/mm3 (150-375) MPV 9.8 fl (7.4-10.4) Immature Gran % (Auto) 0.3 % (0-0.5) Neut % (Auto) 73.7 H % (45.5-73.1) Lymph % (Auto) 16.6 L % (18.3-44.2) [place] % (Auto) 3.6 % (2.6-8.5) Eos % (Auto) 5.4 H % (0-4.4) Baso % (Auto) 0.4 % (0.2-1.2) Lymph # (Auto) 1.20 K/mm3 (0.9-3.2) [place] # (Auto) 0.3 K/mm3 (0.1-0.6) Eos # (Auto) 0.4 H K/mm3 (0-0.3) Baso # (Auto) 0.0 K/mm3 (0.0-0.1) Abs Immat Gran (auto) 0.02 K/mm3 (0.00-0.031) Absolute Neuts (auto) 5.3 K/mm3 (1.3-6.7) Absolute Nucleated RBC 0.0 K/mm3 (0.0-0.012) Nucleated RBC % 0.0 % (0.0-0.2) Sodium Potassium Chloride Carbon Dioxide Anion Gap BUN Creatinine Estim Creat Clear Calc Estimated GFR Glucose Uric Acid Calcium Total Bilirubin AST ALT Alkaline Phosphatase Total Protein Albumin U Random Total Protein 14 mg/dL Cancelled Ur 24 Hour Volume 500 ml 500 ml Urine Creatinine 187.2 mg/dL Creatinine Clearance 70.8 L ml/min (75-125) Ur Total Protein 24 Hr 70 mg/24hr (28-141) Protein/Creat Ratio 2 Cancelled 10/03/22 14:04 WBC RBC Hgb Hct MCV MCH MCHC RDW Plt Count MPV Immature Gran % (Auto) Neut % (Auto) Lymph % (Auto) [place] % (Auto) Eos % (Auto) Baso % (Auto) Lymph # (Auto) [place] # (Auto) Eos # (Auto) Baso # (Auto) Abs Immat Gran (auto) Absolute Neuts (auto) Absolute Nucleated RBC Nucleated RBC % Sodium 135 L mmol/L (137-145) Potassium 3.2 L mmol/L (3.4-5.0) Chloride 107 mmol/L (98-107) Carbon Dioxide 24 mmol/L (22-30) Anion Gap 4 L mmol/L (8-16) BUN 9 mg/dL (7-17) Creatinine 0.70 mg/dL (0.7-1.0) Estim Creat Clear Calc 133 ml/min Estimated GFR > 60 (59 - ) Glucose 73 mg/dL (65-110) Uric Acid 6.5 mg/dL (2.5-7.5) Calcium 8.2 L mg/dL (8.4-10.2) Total Bilirubin 0.4 mg/dL (0.2-1.3) AST 19 U/L (14-36) ALT 12 U/L (6-35) Alkaline Phosphatase 102 U/L (38-126) Total Protein 7.0 g/dL (6.3-8.2) Albumin 3.1 L g/dL (3.5-5.1) U Random Total Protein Ur 24 Hour Volume Urine Creatinine Creatinine Clearance Ur Total Protein 24 Hr Protein/Creat Ratio 2 Patient hx anesthesia problems: none Family hx anesthesia problems: none Results Review: All pre-operative results and documents have been reviewed as part of the pre-operative evaluation. [facility] Past Medical History Medical History (Updated 10/03/22
[2022-10-03] MEDS: LACTATED RINGERS 1,000 ML 125 ML IV CONT (16:00)
[2022-10-03 16:16] LABS: Basophils Percent Auto 0.4 % (0.2-1.2); Eosinophils Absolute Auto 0.4 K/mm3 (0-0.3); Eosinophils Percent Auto 5.6 % (0-4.4); Hematocrit 28.3 % (37.0-47.0); Hemoglobin 8.5 g/dL (12.0-15.0); Immature Granulocyte Absolute 0.02 K/mm3 (0.00-0.031); Immature Granulocyte Percent A 0.3 % (0-0.5); Lymphocytes Absolute Auto 1.18 K/mm3 (0.9-3.2); Mean Corpuscular Hemoglobin 23.7 pg (26-34); Mean Corpuscular Volume 79.1 fl (80-100); Mean Platelet Volume 9.7 fl (7.4-10.4); Monocytes Absolute Auto 0.3 K/mm3 (0.1-0.6); Monocytes Percent Auto 4.3 % (2.6-8.5); Neutrophils Percent Auto 72.4 % (45.5-73.1); Platelet Count Result 250 k/mm3 (150-375); Red Blood Count 3.58 M/mm3 (4.2-5.4); Red Cell Distribution Width 22.5 % (11.5-14.5); White Blood Count 6.9 K/mm3 (4.5-10.0)
[2022-10-03 16:43] LABS: Creatinine Urine 164.6 mg/dL; Total Protein Urine Random 15 mg/dL; Ur Ttl Prot Creatinine Ratio 0.09 mg/mg (0-0.20)
[2022-10-03] MEDS: KCL 20 MEQ/D5/0.45% SOD CHL 1,000 ML 125 ML IV CONT (16:46)
--- NOTE | 2022-10-03 16:59 | PM.IMHP ---
H&P: HPI History of Present Illness Date/Time: 10/03/22 17:00 Chief Complaint: Betty is a 32yo at 35.1 for repeat CS for persistent severe range BPs. Bps since admission a few hours ago are 149-231/75-114, s/p IV labetalol . She has cHTN that started worsening over the last couple days. 24 hour uriine returned today was only 500cc total, but result was only 70mg protein. PC ratio yesterday was .23, todays pending. BMI 49. Has history of 16w IUFD in past. She also has severe anemia for which she had 5 IV iron infusions and Hgb increased from 7.6 to 8.9. She has had a transfusion outside of this . She denies TREVIZO/BV/EP, though had TREVIZO earlier today. Last she had pp PreE and had an ICU admission for hypertensive crisis and pulmonary edema. Review of Systems Review of Systems: All systems reviewed & are unremarkable except as noted in HPI and below PMFSH Past Medical History Medical History (Updated 10/03/22 @ 17:04 by Keila Mujica MD) HTN (hypertension) Morbid obesity PIH ( induced hypertension) Surgical History Surgical History (Updated 10/03/22 @ 15:42 by Isidoro Mcghee MD) History of ankle surgery History of x 2 Family History Family History Sibling Cancer Grandparent Cancer Social History Social History (Updated 10/03/22 @ 15:43 by Isidoro Mcghee MD) Smoking status: Former smoker Tobacco type: cigarettes Second hand tobacco smoke exposure: Yes Alcohol intake: current Drinks per week: 1 Substance use: never Lack of Transportation: No Lack of Food: Never True Current Housing: I Have Housing Concerned About Future Housing: No Difficulty Paying Gas/Electric Bills: No Difficulty Paying for Meds: No Currently Unemployed: No Education: High School Diploma/GED Difficulty w/ Childcare or Family Care: No Gender identity (if verbalized by the patient): Female Spiritual care concerns: No Meds Home Medications and Allergies Home Medications Medication Instructions Recorded Confirmed Type vitamins-iron fumarate 65 1 tablet PO DAILY 08/21/22 10/03/22 History mg iron-folic acid 1 mg tablet Allergies Allergy/AdvReac Type Severity Reaction Status Date / Time No Known Allergies Allergy Verified 09/25/22 12:27 Vital Signs Vital Signs - 24 hr 10/03/22 13:26 10/03/22 13:43 10/03/22 13:46 Pulse Rate 77 71 74 Blood Pressure 149/75 H 152/95 H 149/94 H Oxygen Delivery 10/03/22 14:06 10/03/22 14:16 10/03/22 14:32 Pulse Rate 68 75 68 Blood Pressure 142/92 H 157/96 H 182/114 H Oxygen Delivery 10/03/22 14:45 10/03/22 14:47 10/03/22 15:02 Pulse Rate 68 68 64 Blood Pressure 195/101 H 202/100 H 193/95 H Oxygen Delivery 10/03/22 15:06 10/03/22 15:17 10/03/22 15:33 Pulse Rate 66 73 84 Blood Pressure 173/96 H 165/97 H 158/91 H Oxygen Delivery 10/03/22 16:01 10/03/22 16:16 10/03/22 16:31 Pulse Rate 81 74 80 Blood Pressure 155/110 H 200/108 H 231/97 H Oxygen Delivery 10/03/22 16:46 10/03/22 16:52 10/03/22 14:54 Pulse Rate 75 74 72 Blood Pressure 163/82 H 174/88 H Oxygen Delivery 10/03/22 15:07 10/03/22 16:13 10/03/22 16:35 Pulse Rate 65 71 Blood Pressure Oxygen Delivery Room Air Exam Const: General: no acute distress Resp: Effort & Inspection: normal respiratory effort Auscultation: clear to auscultation bilaterally Cardio: Rate: regular rate Rhythm: regular rhythm GI: GI Palp: Yes Soft to palpation Extrem: General: normal to inspection H&P: Results Labs Labs: Short CBC 10/03/22 10/03/22 Range/Units 13:26 15:57 WBC 7.2 6.9 (4.5-10.0) K/mm3 Hgb 8.9 L 8.5 L (12.0-15.0) g/dL Hct 29.0 L 28.3 L (37.0-47.0) % Plt Count 249 250 (150-375) k/mm3 BMP 10/03/22 14:04 Sodium 135 L Potassium 3.2 L Chloride 107 Carbon Dioxide 24
[2022-10-03] MEDS: ceFAZolin 3 GM/D5W 100 ML 100 ML IVPB (17:00)
--- NOTE | 2022-10-03 17:07 | WPDHPUPDATE1 ---
History and Physical Update Update Date/Time: 10/03/22 17:07 History and Physical has been reviewed, including an updated exam of the patient. There are NO changes in the patient's condition. Risks, benefits, and alternatives have been discussed and questions answered. Patient agrees to proceed with procedure.
--- NOTE | 2022-10-03 18:40 | PM.OBPRVD ---
OB - Delivery Note Procedure Delivery date: 10/03/22 Procedure: Procedures Operation Date: 10/03/22 16:30 <No data on this case meets the specified criteria> repeat low transverse section Events: Chronic Hypertension and Other (severe anemia) Route of delivery: Specimen: Yes (placenta) Quantitative Blood Loss (ml): 320 Anesthesia type: Spinal Disposition: Floor Complications: none Narrative: Preop dx: IUP 35.1, exacerbation of chronic hypertension with severe range BPs over approximately 6 hours, anemia, morbid obesity Post op Dx: same The patient was taken to the OR and received spinal anesthesia. She was placed in dorsal supine position with left lateral tilt. SCDs and ochoa were placed. She was prepped and draped in the normal sterile fashion. A Pfannensteil skin incision was made and carried through to the underlying layer of fascia. The fascia was incised in the midline and then extended laterally using Melendez scissors. The muscles were in the midline and the peritoneum was entered bluntly. The peritoneal incision was extended inferiorly and superiorly with care to avoid the bladder. The bladder blade was then inserted, the vesicouterine peritoneum was grasped, incised with Metzenbaum scissors, and a bladder flap created. The bladder blade was reinserted. A low transverse uterine incision was made with a scalpel and extended bluntly. AROM was performed and fluid was noted to be clear. The head was delivered, followed by the remainder of the baby. The baby's oropharynx was suctioned. After 30 seconds, the cord was clamped and cut and the infant was handed off. Cord blood was obtained and the placenta was then removed manually. The uterus was exteriorized. A moist lap sponge was used to curette the endometrium. The uterine incision was then closed with one layer of 0-Vicryl in a running, locking fashion. Two figure of eight sutures were needed to close thin areas on the lower aspect of the incision. Good hemostasis was noted. The posterior cul de sac was irrigated with normal saline and cleared of all clot and debris. The uterus was returned to the abdomen. Both lateral gutters were then irrigated. The rectus muscles were inspected and found to be hemostatic. The fascia was reapproximated using 0-Vicryl in running fashion. The subcutaneous tissue was irrigated with normal saline and made hemostatic with Bovie electrocautery. The subcutaneous tissue was reapproximated with a layer of running 2-0 plain gut. The skin was then closed with absorbable hieu. Steri strips and a bandage were applied. The uterus was evacuated. The patient tolerated the procedure very well. All counts were correct. She was taken to the recovery room in good condition. Baby Date of : 10/03/22 Time of : 17:42 Weeks of gestation at delivery: 35 gender: Male Weight (pounds): 5 Weight (ounces): 6 presentation: vertex Placenta delivery description: Manual Removal Cord Vessel Description: 3 Vessels, Nuchal Cord and Delayed Cord Clamping score one minute: 9 score five minutes: 9
[2022-10-03] MEDS: diphenhydrAMINE HCl CAP 25 MG CAPSULE PO (18:55)
[2022-10-03] MEDS: diphenhydrAMINE HCl INJ 50 MG/ML VIAL 25 MG IV PUSH (20:20)
[2022-10-03] MEDS: NIFEdipine 30 MG TAB.ER.24 PO (20:26)
--- NOTE | 2022-10-03 20:45 | SUR.PHASEI ---
Dr. Mujica notified of pt status, instructed to recheck bp in 30 min and give 20mg IV labetalol if severe range. Instructed to keep pt on first floor labor and delivery until pressures are stable. Instructed to do BP checks q30min. Pt denies any headache, dizziness, blurred vision, right upper quadrant pain, or any other complaints other than itching from anesthesia wearing off. pt has pitting edema +2 in feet and ankles but states that is not new and has not gotten worse since admission. pt lung sounds are clear in all lobes and pt denies having any difficulty breathing.
--- NOTE | 2022-10-03 21:31 | PC.NURSE ---
Dr. Mujica updated on pt status, instructed to send pt up to Post if BP at 2200 and 2230 are below 160/110. Instructed to have pts BP checked q2h while awake and q4h while asleep. Pt still complaining of itching despite benadryl being given. Anesthesia notified and orders obtained
[2022-10-03] MEDS: LORATADINE 10 MG TABLET PO (21:43)
--- NOTE | 2022-10-03 22:53 | PC.NURSE ---
pt transported to Post via stretcher. Kaye care complete. no complications. Report given to ETIENNE RN
[2022-10-04] VITALS (10 sets, daily range): BP systolic 119–156; BP diastolic 66–85; PULSE 63–80; RESP 16–18; TEMP 35.5–37.7; O2SAT 97–100
[2022-10-04] MEDS: ONDANSETRON INJ 4 MG/2 ML VIAL IV PUSH
[2022-10-04] MEDS: KETOROLAC 30 MG/ML VIAL (*BKC) IV PUSH ×2 (00:09→22:29)
[2022-10-04] MEDS: KCL 20 MEQ/D5/0.45% SOD CHL 1,000 ML 125 ML IV CONT ×3 (00:10→19:22)
[2022-10-04] MEDS: ZOLPIDEM TARTRATE (*CRX) 5 MG TABLET PO (03:21)
[2022-10-04] MEDS: ACETAMINOPHEN 325 MG TABLET 650 MG PO (03:21)
[2022-10-04 04:44] LABS: Basophils Percent Auto 0.2 % (0.2-1.2); Hematocrit 29.1 % (37.0-47.0); Hemoglobin 8.8 g/dL (12.0-15.0); Immature Granulocyte Absolute 0.07 K/mm3 (0.00-0.031); Immature Granulocyte Percent A 0.5 % (0-0.5); Lymphocytes Absolute Auto 0.45 K/mm3 (0.9-3.2); Lymphocytes Percent Auto 3.5 % (18.3-44.2); Mean Corpuscular HGB Conc 30.2 g/dl (32-36); Mean Corpuscular Hemoglobin 24.1 pg (26-34); Mean Corpuscular Volume 79.7 fl (80-100); Mean Platelet Volume 9.9 fl (7.4-10.4); Monocytes Absolute Auto 0.4 K/mm3 (0.1-0.6); Monocytes Percent Auto 2.9 % (2.6-8.5); Neutrophils Absolute Auto 11.9 K/mm3 (1.3-6.7); Neutrophils Percent Auto 92.9 % (45.5-73.1); Platelet Count Result 236 k/mm3 (150-375); Red Blood Count 3.65 M/mm3 (4.2-5.4); Red Cell Distribution Width 22.2 % (11.5-14.5); White Blood Count 12.9 K/mm3 (4.5-10.0)
[2022-10-04 05:01] LABS: Alanine Aminotransferase 15 U/L (6-35); Albumin Level 3.1 g/dL (3.5-5.1); Alkaline Phosphatase 102 U/L (38-126); Anion Gap 6 mmol/L (8-16); Aspartate Amino Transferase 21 U/L (14-36); Bilirubin,Total 0.4 mg/dL (0.2-1.3); Blood Urea Nitrogen 8 mg/dL (7-17); Calcium 8.2 mg/dL (8.4-10.2); Carbon Dioxide 20 mmol/L (22-30); Chloride 107 mmol/L (98-107); Estimated CRCL calculation 153 ml/min; Estimated Glomerular Filt Rate > 60; Glucose 171 mg/dL (65-110); Potassium 3.6 mmol/L (3.4-5.0); Sodium 133 mmol/L (137-145)
[2022-10-04 05:25] LABS: Anisocytosis 2+ (NORMAL); Microcytosis 1+ (NORMAL); Platelet Estimate Adequate (Adequate)
[2022-10-04 05:26] LABS: Schistocytes None Seen (NORMAL)
--- NOTE | 2022-10-04 07:17 | PM.OBPNVD ---
OB - PN: Subj Subjective Date/time seen: 10/04/22 07:17 Patient comments: no complaints and pain well controlled baby status: NICU Spencer feeding status: pumping and storing Narrative: POD 1 from primary CS. Doing well. Normal lochia. Tolerating po. uop 300cc/8 hrs. BPs since up to PP 133-156/73-85. Denies TREVIZO/BV/EP. Does c/o itching, but is improving. OB - PN: Obj Data Labs 10/04/22 03:35 10/04/22 03:35 Labs: Laboratory Results - last 24 hr 10/02/22 10/02/22 10/03/22 07:30 07:30 13:26 WBC 7.2 RBC 3.69 L Hgb 8.9 L Hct 29.0 L MCV 78.6 L MCH 24.1 L MCHC 30.7 L RDW 22.4 H Plt Count 249 MPV 9.8 Immature Gran % (Auto) 0.3 Neut % (Auto) 73.7 H Lymph % (Auto) 16.6 L [place] % (Auto) 3.6 Eos % (Auto) 5.4 H Baso % (Auto) 0.4 Lymph # (Auto) 1.20 [place] # (Auto) 0.3 Eos # (Auto) 0.4 H Baso # (Auto) 0.0 Abs Immat Gran (auto) 0.02 Absolute Neuts (auto) 5.3 Absolute Nucleated RBC 0.0 Nucleated RBC % 0.0 Platelet Estimate Anisocytosis Microcytosis Schistocytes Sodium Potassium Chloride Carbon Dioxide Anion Gap BUN Creatinine Estim Creat Clear Calc Estimated GFR Glucose Uric Acid Calcium Total Bilirubin AST ALT Alkaline Phosphatase Total Protein Albumin U Random Total Protein 14 Cancelled Ur 24 Hour Volume 500 500 Urine Creatinine 187.2 Creatinine Clearance 70.8 L Ur Total Protein 24 Hr 70 Protein/Creat Ratio 2 Cancelled Blood Type Antibody Screen 10/03/22 10/03/22 10/03/22 14:04 15:57 15:58 WBC 6.9 RBC 3.58 L Hgb 8.5 L Hct 28.3 L MCV 79.1 L MCH 23.7 L MCHC 30.0 L RDW 22.5 H Plt Count 250 MPV 9.7 Immature Gran % (Auto) 0.3 Neut % (Auto) 72.4 Lymph % (Auto) 17.0 L [place] % (Auto) 4.3 Eos % (Auto) 5.6 H Baso % (Auto) 0.4 Lymph # (Auto) 1.18 [place] # (Auto) 0.3 Eos # (Auto) 0.4 H Baso # (Auto) 0.0 Abs Immat Gran (auto) 0.02 Absolute Neuts (auto) 5.0 Absolute Nucleated RBC 0.0 Nucleated RBC % 0.0 Platelet Estimate Anisocytosis Microcytosis Schistocytes Sodium 135 L Potassium 3.2 L Chloride 107 Carbon Dioxide 24 Anion Gap 4 L BUN 9 Creatinine 0.70 Estim Creat Clear Calc 133 Estimated GFR > 60 Glucose 73 Uric Acid 6.5 Calcium 8.2 L Total Bilirubin 0.4 AST 19 ALT 12 Alkaline Phosphatase 102 Total Protein 7.0 Albumin 3.1 L U Random Total Protein Ur 24 Hour Volume Urine Creatinine Creatinine Clearance Ur Total Protein 24 Hr Protein/Creat Ratio 2 Blood Type O Positive Antibody Screen Negative 10/03/22 10/04/22 16:00 03:35 WBC 12.9 H RBC 3.65 L Hgb 8.8 L Hct 29.1 L MCV 79.7 L MCH 24.1 L MCHC 30.2 L RDW 22.2 H Plt Count 236 MPV 9.9 Immature Gran % (Auto) 0.5 Neut % (Auto) 92.9 H Lymph % (Auto) 3.5 L [place] % (Auto) 2.9 Eos % (Auto) 0.0 Baso % (Auto) 0.2 Lymph # (Auto) 0.45 L [place] # (Auto) 0.4 Eos # (Auto) 0.0 Baso # (Auto) 0.0 Abs Immat Gran (auto) 0.07 H Absolute Neuts (auto) 11.9 H Absolute Nucleated RBC 0.0 Nucleated RBC % 0.0 Platelet Estimate Adequate Anisocytosis 2+ Microcytosis 1+ Schistocytes None seen Sodium 133 L Potassium 3.6 Chloride 107 Carbon Dioxide 20 L Anion Gap 6 L BUN 8 Creatinine 0.60 L Estim Creat Clear Calc 153 Estimated GFR > 60 Glucose 171 H Uric Acid Calcium 8.2 L Total Bilirubin 0.4 AST 21 ALT 15 Alkaline Phosphatase 102 Total Protein 6.0 L Albumin 3.1 L U Random Total Protein 15 Ur 24 Hour Volume Urine Creatinine 164.6 Creatinine Clearance Ur Total Protein 24 Hr Protein/Creat Ratio 2 0.09 Blood Type Antibody Screen OB - PN A/P Assessment and Plan (1) Chronic hy
[2022-10-04] MEDS: LACTATED RINGERS 500 ML IV CONT (08:20)
[2022-10-04 09:17] LABS: Rapid Plasma Reagin Non-Reactive (NonReactive)
--- NOTE | 2022-10-04 10:47 | WPDANLDPN2 ---
Anes-Prog Note L&D Date/Time: 10/04/22 10:47 Comfortable throughout: section Neuraxial method: spinal Epidural/Spinal procedure site: clean & non-tender Neuro status: Neuro function grossly intact. Cardiovascular status: normal Respiratory status: normal Airway patency: baseline Mental status: baseline Post-Op hydration status: normal Vital Signs: Last Vital Signs Temp 37.6 C H 10/04/22 10:00 Pulse 74 10/04/22 10:00 Resp 16 10/04/22 10:00 BP 119/66 10/04/22 10:00 Pulse Ox 100 10/04/22 10:00 O2 Del Method Room Air 10/04/22 03:30 Pain score (VAS): 2/10 I/O: Intake & Output 10/03/22 10/04/22 10/04/22 23:59 07:59 15:59 Intake Total 1100 1470 1555 Output Total 520 300 Balance 580 1170 1555 Post-procedural complaints: none Patient feedback: Patient satisfied with anesthetic care.
--- NOTE | 2022-10-04 10:47 | WPDANLDNPN2 ---
Anes-Prog Note L&D-Neuraxial Date/Time: 10/04/22 10:47 Neuraxial medications: intrathecal PF morphine Opiod-related complaints: none Patient feedback: Patient satisfied with post-operative pain management.
[2022-10-04] MEDS: IRON SUCROSE COMPLEX 200 MG in SODIUM CHLORIDE 0.9% IV 50 ML 120 MG IVPB (11:00)
[2022-10-04] MEDS: diphenhydrAMINE HCl CAP 25 MG CAPSULE 50 MG PO (13:00)
[2022-10-04] MEDS: DOCUSATE SODIUM 100 MG CAPSULE PO ×2 (13:00→21:57)
[2022-10-04] MEDS: PANTOPRAZOLE 40 MG TABLET PO (13:00)
[2022-10-04] MEDS: MULTIVIT/MIN/PREN/FOL AC/IRON TABLET 1 TAB PO (13:00)
[2022-10-04] MEDS: HYDROcodone/acetaminophen (*CRX) 10-325 MG TABLET 1 TAB PO ×2 (13:01→19:10)
[2022-10-04] MEDS: LACTATED RINGERS 1,000 ML 500 ML (13:15)
[2022-10-04] MEDS: NIFEdipine 30 MG TAB.ER.24 PO (21:57)
[2022-10-05] VITALS (13 sets, daily range): BP systolic 136–169; BP diastolic 70–97; PULSE 66–78; RESP 18; TEMP 36.4–37; O2SAT 99–100
[2022-10-05] MEDS: HYDROcodone/acetaminophen (*CRX) 10-325 MG TABLET 1 TAB PO ×6 (02:25→23:16)
--- NOTE | 2022-10-05 08:13 | PM.OBPNVD ---
OB - PN: Subj Subjective Date/time seen: 10/05/22 08:13 Patient comments: no complaints, pain well controlled, incisional pain, tolerating diet and flatus present OB - PN: Obj Data Labs 10/04/22 03:35 10/04/22 03:35 Labs: Laboratory Results - last 24 hr 10/03/22 15:57 RPR Non-reactive OB - PN A/P Plan day: 2 Plan: routine care Comments: POD#2 LTCS - no problems, Time Spent With Patient Time: Total time spent is greater than 50% in coordination of care (as documented) at patient's floor/unit and/or counseling patient: Exam Const: General: comfortable, no acute distress and alert Resp: Effort & Inspection: normal respiratory effort Auscultation: no crackles, no rales and no rhonchi Cardio: Rate: regular rate Heart sounds: no click, no murmurs and no rubs GI: Inspection: non-distended GI Palp: No Tenderness to palpation present (GI) Auscultation: normal bowel sounds Other: Incision - CDI Extrem: General: normal to inspection, no pedal edema and no calf tenderness
--- NOTE | 2022-10-05 08:15 | PM.OBDSVD ---
DS: Admitting Diagnosis Discharge Date October 05, 2022 Admitting Diagnosis term , chronic hypertension DS: Discharge Diagnosis Discharge Diagnosis (1) delivery delivered: Code(s): O82 - Encounter for delivery without indication Status: Acute (2) Post-operative pain: Code(s): G89.18 - Other acute postprocedural pain Status: Acute OB - DS: Summary OB Procedures : None OB Procedures Intrapartum: Spontaneous Vag Delivery and OB Procedures: : None Peripartum Data Procedures: Procedures Operation Date: 10/03/22 16:30 Actual Procedure Side Surgeon p Section Keila Mujica MD Time Spent with Patient Time attestation: Total time spent providing and/or coordinating discharge services: DS: Data Data Completed and Pending Pending studies at discharge: Pending at discharge 10/03/22 17:43 Surgical [PTH] Routine Labs on day of discharge: Labs from last 24 hours 10/03/22 15:57 RPR Non-reactive Discharge Plan Discharge Attending physician on discharge: Tyesha Almeida Discharging Clinician: Tyesha Almeida Patient Disposition: Home, Self-Care Activity: pelvic rest Diet: regular Patient Instructions: Antibiotic Form Stand Alone Forms: General Discharge Information Follow-up/Referrals: Tyesha Almeida MD [Physician] - Discharge Medications: New oxycodone-acetaminophen 5-325 mg tablet 1 tablet PO Q4H PRN (Reason: pain) Qty: 25 0RF Continued 1 + Iron 65 mg iron- 1 mg Tablet 1 tablet PO DAILY Date of admission: 10/03/22 12:57 Primary Care Provider: HaleyAlen Admitting Provider: Keila Mujica Attending physician on admission: Keila Mujica Condition: Stable
[2022-10-05] MEDS: MULTIVIT/MIN/PREN/FOL AC/IRON TABLET 1 TAB PO (09:00)
[2022-10-05] MEDS: SIMETHICONE 80 MG TAB.CHEW PO ×3 (09:00→15:27)
--- NOTE | 2022-10-05 09:00 | PC.NURSE ---
Pt introductions made and plan of care discussed per post , pain management, bottle feeding, daily care activities. pending discharge to home. PT and spouse both recipients of such instructions and no barriers to learning identified at this time. PT received such instructions per one to one discussion, mom baby care guide and demonstrations this shift. PT verbalized understanding of such care.
[2022-10-05] MEDS: DOCUSATE SODIUM 100 MG CAPSULE PO ×2 (09:02→15:27)
[2022-10-05] MEDS: PANTOPRAZOLE 40 MG TABLET PO (09:02)
[2022-10-05] MEDS: TETANUS,DIPHTHERIA,AC PERTUSSIS ADULT (0.5 ML) BOOSTRIX IM (09:03)
[2022-10-05] MEDS: LABETALOL HCL 100 MG TABLET 200 MG PO ×2 (12:55→23:16)
--- NOTE | 2022-10-05 15:26 | PCCCNOTE ---
Per Care Coordination: Pt. referred to CC for baby supplies. Baby came a little early. Pt. has not had chance for baby shower, but has been able to accumulate all necessary supplies for baby. Provided her a list of resources/education as well as baby basket with supplies. Hospital also gave bottles for baby. She is setup with WIC. Pt. plans to return home with FOB, baby, and other children. Baby was transferred to another hospital and she plans to go be with baby after discharge from here. No further CC needs identified.
[2022-10-05] MEDS: NIFEdipine 30 MG TAB.ER.24 PO (23:16)
[2022-10-06] MEDS: polyethylene glycoL 3350 17 GM POWD.PACK PO (00:06)
[2022-10-06] MEDS: HYDROcodone/acetaminophen (*CRX) 10-325 MG TABLET 1 TAB PO ×2 (04:58→09:14)
[2022-10-06 05:00] VITALS: BP 136/68; PULSE 74; RESP 18; O2SAT 100
[2022-10-06 07:31] VITALS: BP 167/94; PULSE 79; RESP 16; TEMP 36.6; O2SAT 100
--- NOTE | 2022-10-06 08:30 | P.PNOB_ITS ---
OB - PN: Subj Subjective Date/time seen: 10/06/22 08:30 Patient comments: no complaints, pain well controlled and tolerating diet OB - PN: Obj Data Labs 10/04/22 03:35 10/04/22 03:35 OB - PN A/P Plan day: 3 Plan: routine care and discharge home Comments: With likely discharge later today, patient had isolated elevated blood pressure, will continue to watch, consider changing blood pressure medication if there are persistent elevated blood pressures. One today with severe range. Otherwise since starting labetalol they have been normal. She left on a pass to see her baby at [facility] in [place] yesterday and did very well. She has follow-up tomorrow for blood pressure check here at the hospital. Time Spent With Patient Time: Total time spent is greater than 50% in coordination of care (as documented) at patient's floor/unit and/or counseling patient: Exam Const: General: comfortable and no acute distress Resp: Effort & Inspection: normal respiratory effort Auscultation: no rales, no rhonchi and no wheezes Cardio: Rate: regular rate Heart sounds: no click, no murmurs and no rubs GI: GI Palp: Yes Soft to palpation and No Tenderness to palpation present (GI) Auscultation: normal bowel sounds Extrem: General: normal to inspection, no pedal edema and no calf tenderness
--- NOTE | 2022-10-06 08:33 | PM.OBDSVD ---
DS: Admitting Diagnosis Discharge Date 10/06/22 Admitting Diagnosis Term DS: Discharge Diagnosis Discharge Diagnosis (1) delivery delivered: Code(s): O82 - Encounter for delivery without indication Status: Acute OB - DS: Summary OB Procedures : None OB Procedures Intrapartum: OB Procedures: : None Peripartum Data Procedures: Procedures Operation Date: 10/03/22 16:30 Actual Procedure Side Surgeon p Section Keila Mujica MD Time Spent with Patient Time attestation: Total time spent providing and/or coordinating discharge services: DS: Data Data Completed and Pending Pending studies at discharge: Pending at discharge 10/03/22 17:43 Surgical [PTH] Routine Discharge Plan Discharge Attending physician on discharge: Tyesha Almeida Discharging Clinician: Tyesha Almeida Patient Disposition: Home, Self-Care Activity: pelvic rest Diet: regular Patient Instructions: Antibiotic Form Stand Alone Forms: General Discharge Information Follow-up/Referrals: Tyesha Almeida MD [Physician] - Discharge Medications: New oxycodone-acetaminophen 5-325 mg tablet 1 tablet PO Q4H PRN (Reason: pain) Qty: 25 0RF Continued 1 + Iron 65 mg iron- 1 mg Tablet 1 tablet PO DAILY Date of admission: 10/03/22 12:57 Primary Care Provider: HaleyAlen Admitting Provider: Keila Mujica Attending physician on admission: Keila Mujica Condition: Stable
[2022-10-06] MEDS: POLYSACCHARIDE IRON COMPLEX 150 MG CAPSULE PO (09:13)
[2022-10-06 09:14] VITALS: PULSE 79
[2022-10-06] MEDS: LABETALOL HCL 100 MG TABLET 200 MG PO (09:14)
[2022-10-06] MEDS: DOCUSATE SODIUM 100 MG CAPSULE PO (09:14)
[2022-10-06] MEDS: PANTOPRAZOLE 40 MG TABLET PO (09:14)
[2022-10-06] MEDS: MULTIVIT/MIN/PREN/FOL AC/IRON TABLET 1 TAB PO (09:14)
[2022-10-07 07:46] VITALS: BP 168/96; PULSE 76; RESP 18; TEMP 36.6; O2SAT 100
== END 2022-10-06 11:20 | disposition home or self-care (01) | DRG 540 ==
LOC: ANHOBPP 13:06 → ANHOBOP 15:41 → ANHOBPP 15:41 → ANHOBOP 15:41 → ANHOB2 10-04 07:45 → ANHOBPP 10-09 09:37
PROVIDERS: Admitting Provider Obstetrics & Gynecology; PCP Internal Medicine; Visit Provider Obstetrics & Gynecology
PROC: 10D00Z1 Extraction of Products of Conception, Low, Open Approach (ICD-10-PCS; CPT 59514; principal; 2022-10-03 16:30)
DX: O34.219 Maternal care for unspecified type scar from previous cesarean delivery (principal); E66.01 Morbid (severe) obesity due to excess calories; O10.92 Unspecified pre-existing hypertension complicating childbirth; O99.214 Obesity complicating childbirth; O99.02 Anemia complicating childbirth; Z3A.35 35 weeks gestation of pregnancy; Z37.0 Single live birth; Z87.891 Personal history of nicotine dependence
CPT/HCPCS: 36415; 80053; 81050; 82570; 82575; 84156; 84550; 85025; 86592; 86850; 86900; 86901; 90715; 96372; 99199; A9270; J0690; J0702; J1200; J1756; J1885; J2274; J2405; J3480; J7120

== ENCOUNTER 2022-10-07 08:43 | Outpatient (CLI) | payer OTHER, SELFPAY ==
[2022-10-07] VITALS (13 sets, daily range): BP systolic 133–171; BP diastolic 67–100; PULSE 68–77
--- NOTE | 2022-10-07 08:43 | PC.NURSE ---
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
--- NOTE | 2022-10-07 08:44 | PC.NURSE ---
Called Jeremy Patel CNM and informed her I didn't feel comfortable just drawing labs and sending pt home. Requested to be able to start her meds now. Order received. BHAVNA states Dr. Almeida wanted pt to be discharged after labs drawn.
[2022-10-07] MEDS: LABETALOL HCL 100 MG TABLET 200 MG PO ×2 (09:08→11:23)
--- NOTE | 2022-10-07 09:27 | PC.NURSE ---
Jeremy Patel CNM informed I want to call Dr. Almeida because I don't feel comfortable sending pt home. BP's 168/96, and 171/100.
--- NOTE | 2022-10-07 09:28 | PC.NURSE ---
Dr. Almeida informed that I had spoke with Jeremy Patel CNM and received order to start Labetalol 200 mg po BID and labs were just sent, but I don't feel comfortable sending pt home as BP's are 168/96 and 171/100. OK to continue to monitor pt. No additional meds at this time. Order received to discharge to home when BP's are better. Pt to call office Sunday morning to come in for BP check.
[2022-10-07 09:33] LABS: Basophils Percent Auto 0.2 % (0.2-1.2); Eosinophils Absolute Auto 0.8 K/mm3 (0-0.3); Eosinophils Percent Auto 11.5 % (0-4.4); Hematocrit 28.5 % (37.0-47.0); Hemoglobin 8.4 g/dL (12.0-15.0); Immature Granulocyte Absolute 0.03 K/mm3 (0.00-0.031); Immature Granulocyte Percent A 0.5 % (0-0.5); Lymphocytes Absolute Auto 1.12 K/mm3 (0.9-3.2); Lymphocytes Percent Auto 16.9 % (18.3-44.2); Mean Corpuscular HGB Conc 29.5 g/dl (32-36); Mean Corpuscular Hemoglobin 23.7 pg (26-34); Mean Corpuscular Volume 80.3 fl (80-100); Mean Platelet Volume 9.3 fl (7.4-10.4); Monocytes Absolute Auto 0.4 K/mm3 (0.1-0.6); Monocytes Percent Auto 5.6 % (2.6-8.5); Neutrophils Absolute Auto 4.3 K/mm3 (1.3-6.7); Neutrophils Percent Auto 65.3 % (45.5-73.1); Platelet Count Result 252 k/mm3 (150-375); Red Blood Count 3.55 M/mm3 (4.2-5.4); Red Cell Distribution Width 22.8 % (11.5-14.5); White Blood Count 6.6 K/mm3 (4.5-10.0)
[2022-10-07 09:39] LABS: Alanine Aminotransferase 15 U/L (6-35); Albumin Level 3.3 g/dL (3.5-5.1); Alkaline Phosphatase 94 U/L (38-126); Anion Gap 1 mmol/L (8-16); Aspartate Amino Transferase 21 U/L (14-36); Bilirubin,Total 0.5 mg/dL (0.2-1.3); Blood Urea Nitrogen 11 mg/dL (7-17); Calcium 7.8 mg/dL (8.4-10.2); Carbon Dioxide 32 mmol/L (22-30); Chloride 103 mmol/L (98-107); Estimated Glomerular Filt Rate > 60; Glucose 72 mg/dL (65-110); Potassium 3.5 mmol/L (3.4-5.0); Sodium 136 mmol/L (137-145); Uric Acid 7.1 mg/dL (2.5-7.5)
[2022-10-07 09:54] LABS: Anisocytosis 1+ (NORMAL); Hypochromasia 1+ (NORMAL); Platelet Estimate Adequate (Adequate); Schistocytes None Seen (NORMAL)
[2022-10-07] MEDS: ACETAMINOPHEN 500 MG TABLET 1000 MG PO (10:52)
--- NOTE | 2022-10-07 11:17 | PC.NURSE ---
Dr. Almeida informed that pt's BP's had started to get better 133/67, 141/76, but then went back up to 150/77, 162/89, 156/82, and just now 169/91. Order received for an additional Labetalol 200 mg PO now.
--- NOTE | 2022-10-07 11:25 | PC.NURSE ---
Dr. 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 Discussed risk of stroke or with pt and informed she would have to leave against medical advice and plans to do that, but states she will come back later.
== END 2022-10-07 11:30 | disposition home or self-care (01) ==
LOC: ANHOBOP 08:48 → ANHLDR 08:48
PROVIDERS: Advanced Practice Midwife; PCP Internal Medicine; Visit Provider Obstetrics & Gynecology
DX: I10 Essential (primary) hypertension (principal)
CPT/HCPCS: 36415; 80053; 84550; 85025; 99199; A9270

== ENCOUNTER 2022-10-07 14:43 | Outpatient (CLI) | payer OTHER, SELFPAY ==
[2022-10-07 15:13] VITALS: BP 137/65; PULSE 84; RESP 16; TEMP 36.4
[2022-10-07 15:16] VITALS: BP 131/67; PULSE 84
--- NOTE | 2022-10-07 15:18 | PC.NURSE ---
Dr. Almeida on unit and informed of BP's. Order received to discharge pt to home with instructions to increase Labetalol to 400 mg by mouth every 12 hr. (Jeremy Patel CNM had already called in the prescription this morning). Pt to call office Sunday for appt for BP check.
--- NOTE | 2022-10-07 15:23 | PC.NURSE ---
Reviewed Labetalol dose of 400 mg by mouth every 12 hrs and to take next dose at 9pm valente. 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 Reviewed signs of preeclampsia with pt. Discussed limited activity and accepting help with care of the household and other children. Pt verbalizes understanding.
== END 2022-10-07 15:23 | disposition home or self-care (01) ==
LOC: ANHOBOP 14:45 → ANHOBPP 14:45
PROVIDERS: PCP Internal Medicine; Visit Provider Obstetrics & Gynecology
DX: O13.5 Gestational [pregnancy-induced] hypertension without significant proteinuria, complicating the puerperium (principal)
CPT/HCPCS: 99199

== ENCOUNTER 2023-05-08 18:37 | Observation (INO) | payer OTHER, SELFPAY ==
--- NOTE | ~2023-05-08 | CT_ITS ---
EXAMINATION: CTA chest PE protocol DATE: 05/08/2023 21:49 INDICATION: Dyspnea. Chest pain. TECHNIQUE: Computed tomography angiography (CTA) of the chest was performed with 100 mL Omnipaque-350 intravenous contrast timed to evaluate the pulmonary arteries. Coronal maximum intensity projection 3D-reconstructions were created by the technologist. Automated exposure control and iterative reconst ruction technique were employed. The dose-length product was 938.60 mGy-cm. COMPARISON: Chest 2 views 05/08/2023 FINDINGS: The lungs are clear without pneumonia or pleural effusion. The heart size is normal. No per icardial effusion. There is no pulmonary embolus. There is diffuse hepatic steatosis. There is mild s plenomegaly, likely secondary to obesity. There is mild thoracic spondylosis. IMPRESSION: 1. No pulmonary embolus. Sensitivity is mildly decreased by motion artifact. Reviewed, dictated and finalized at location E. RIOR DESIGN CONSULTANT
--- NOTE | ~2023-05-08 | XR_ITS ---
EXAMINATION: XR chest 2V DATE: 05/08/2023 19:11 INDICATION: Chest pain. Shortness of breath. TECHNIQUE: Frontal and lateral views of the chest were obtained. COMPARISON: Chest 2 views 07/15/2021, CT abdomen and pelvis 07/15/2021 FINDINGS: There is no pneumonia, pleural effusion, or pneumothorax. The heart size is normal. There a re old healed bilateral rib fractures. IMPRESSION: 1. No acute cardiopulmonary disease. Reviewed, dictated and finalized at location E. OWCASE FOLDER
[2023-05-08 18:41] VITALS: BP 145/115; PULSE 107; RESP 20; TEMP 37.2; O2SAT 100
[2023-05-08 18:45] VITALS: BP 147/107
--- NOTE | 2023-05-08 18:52 | ECG_ITS ---
Measurements Intervals [place] Rate: 101 P: 21 WA: 100 QRS: 11 QRSD: 86 T: 22 QT: 354 QTc: 460 Interpretive Statements SINUS TACHYCARDIA WITH SHORT WA INTERVAL POSSIBLE LEFT ATRIAL ENLARGEMENT POSSIBLE LEFT VENTRICULAR HYPERTROPHY CONSIDER INFERIOR INFARCT, AGE INDETERMINATE BORDERLINE ST ABNORMALITY- HIGH LATERAL LEADS ABNORMAL ECG COMPARED TO ECG 07/14/2021 22:47:07 [address]INUS [address]CARDIA NOW PRESENT ST (T WAVE) DEVIATION NOW PRESENT Electronically Signed On 05-09-2023 6:35:45 SURGICAL PRODUCT SALES CONSULTANT by Timoteo Moore D.O.
[2023-05-08 19:09] LABS: Basophils Percent Auto 0.4 % (0.2-1.2); Eosinophils Percent Auto 0.3 % (0-4.4); Hematocrit 37.1 % (37.0-47.0); Hemoglobin 12.5 g/dL (12.0-15.0); Immature Granulocyte Absolute 0.05 K/mm3 (0.00-0.031); Immature Granulocyte Percent A 0.6 % (0-0.5); Lymphocytes Absolute Auto 0.75 K/mm3 (0.9-3.2); Lymphocytes Percent Auto 8.3 % (18.3-44.2); Mean Corpuscular HGB Conc 33.7 g/dl (32-36); Mean Corpuscular Hemoglobin 28.6 pg (26-34); Mean Corpuscular Volume 84.9 fl (80-100); Mean Platelet Volume 9.9 fl (7.4-10.4); Monocytes Absolute Auto 0.4 K/mm3 (0.1-0.6); Monocytes Percent Auto 4.4 % (2.6-8.5); Neutrophils Absolute Auto 7.7 K/mm3 (1.3-6.7); Platelet Count Result 168 k/mm3 (150-375); Red Blood Count 4.37 M/mm3 (4.2-5.4); Red Cell Distribution Width 15.4 % (11.5-14.5)
[2023-05-08 19:22] LABS: Alanine Aminotransferase 36 U/L (6-35); Albumin Level 4.1 g/dL (3.5-5.1); Alkaline Phosphatase 90 U/L (38-126); Anion Gap 14 mmol/L (8-16); Aspartate Amino Transferase 65 U/L (14-36); Blood Urea Nitrogen 21 mg/dL (7-17); Calcium 7.8 mg/dL (8.4-10.2); Carbon Dioxide 21 mmol/L (22-30); Chloride 97 mmol/L (98-107); Estimated CRCL calculation 65 ml/min; Estimated Glomerular Filt Rate 44; Glucose 110 mg/dL (65-110); Lipase 52 U/L (23-300); Potassium 3.1 mmol/L (3.4-5.0); Sodium 132 mmol/L (137-145)
[2023-05-08 19:27] LABS: INR 1.1; Prothrombin Time 14.5 Seconds (11.1-14.7)
[2023-05-08 19:30] LABS: Partial Thromboplastin Time 32.9 SECONDS (22.3-36.8)
[2023-05-08 19:35] LABS: Troponin I 0.078 ng/mL (0.000-0.034)
[2023-05-08 21:03] LABS: NT Pro B Type Natriuretic Pept 3450 pg/mL (19.9-100)
[2023-05-08 21:42] LABS: Influenza A QL RT-PCR Negative (Negative); Influenza B QL RT-PCR Negative (Negative); RSV RNA, RT-PCR Negative (Negative); SARS-CoV-2 RNA PCR Negative (Negative)
--- NOTE | 2023-05-08 22:07 | ED.GENADULT ---
HPI - General Adult General Chief complaint: Chest Pain Stated complaint: sob/chest discomfort/6 months pp Time Seen by Provider: 05/08/23 20:14 History of Present Illness HPI narrative: Patient is a 32-year-old female who presents emergency department with chief complaint of chest pain and shortness of breath patient reports last 2 days she has been feeling very short of breath and reports that she has also had some edema. Patient reports that she has had hypertension and is on labetalol and Procardia bed at ran out about a month ago and was started back on them by urgent care patient states that had during her she did have preeclampsia and has been hypertensive since then the patient reports she has had a bit of discomfort in her chest and also has reported that she has had some shortness of breath with exertion. The patient has noted severe blood pressures have been running very high at home as well including the 190s over 110's. Related Data Home Medications Medication Instructions Recorded Confirmed vitamins-iron fumarate 65 1 tablet PO DAILY 08/21/22 10/03/22 mg iron-folic acid 1 mg tablet Allergies Allergy/AdvReac Type Severity Reaction Status Date / Time No Known Allergies Allergy Verified 05/08/23 18:46 Review of Systems Review of Systems: A 10 system review of systems was completed on the patient and is negative except for what is stated in the HPI. Nursing and ancillary documentation was reviewed. [facility] Past Medical History Medical History HTN (hypertension) Morbid obesity PIH ( induced hypertension) Post-operative pain Surgical History Surgical History History of ankle surgery History of x 2 Family History Family History Sibling Cancer Grandparent Cancer Social History Social History Smoking status: Former smoker Tobacco type: cigarettes Second hand tobacco smoke exposure: Yes Alcohol intake: current Drinks per week: 1 Substance use: never Lack of Transportation: No Lack of Food: Never True Current Housing: I Have Housing Concerned About Future Housing: No Difficulty Paying Gas/Electric Bills: No Difficulty Paying for Meds: No Currently Unemployed: No Education: High School Diploma/GED Difficulty w/ Childcare or Family Care: No Gender identity (if verbalized by the patient): Female Spiritual care concerns: No Exam Narrative: GENERAL: Well-appearing, well-nourished, and in no acute distress. HEAD: Normocephalic, atraumatic. EYES: PERRLA and EOMI. ENT: Nares clear, no rhinorrhea or epistaxis. Mucous membranes moist. NECK: Supple. CHEST: Clear to auscultation. No respiratory distress. HEART: Regular rate and rhythm. No murmur heard. Normal peripheral pulses. ABDOMEN: Soft, nontender, nondistended, normal active bowel sounds. EXTREMITIES: Normal range of motion. Trace edema. SKIN: Warm, dry, no rash. NEURO: No focal deficits. Alert and oriented x3. PSYCH: Normal mood and affect. Course Vital Signs Vital signs: Vital Signs Temperature 37.2 C 05/08/23 18:41 Pulse Rate 107 H 05/08/23 18:41 Respiratory Rate 05/08/23 18:41 Blood Pressure 145/115 H 05/08/23 18:41 Pulse Oximetry 100 05/08/23 18:41 Oxygen Delivery Room Air 05/08/23 18:41 Temperature 37.2 C 05/08/23 18:41 Pulse Rate 107 H 05/08/23 18:41 Respiratory Rate 20 05/08/23 18:41 Blood Pressure 147/107 H 05/08/23 18:45 Pulse Oximetry 100 05/08/23 18:41 Oxygen Delivery Room Air 05/08/23 18:41 Medical Decision Making MDM Narrative Medical decision making narrative: Differential diagnosis includes pulmonary embolism, CHF, ACS, hypertensive urge
[2023-05-08] MEDS: POTASSIUM CHLORIDE 20 MEQ PACKET (FOR LIQUID) 40 MEQ PO (22:19)
[2023-05-08 22:44] VITALS: BP 136/86; PULSE 96; RESP 20; O2SAT 100
[2023-05-08 22:48] LABS: Magnesium 1.2 mg/dL (1.6-2.3)
[2023-05-08 23:00] LABS: Troponin I 0.096 ng/mL (0.000-0.034)
[2023-05-08 23:50] VITALS: BP 133/86; PULSE 96; RESP 20; TEMP 36.6; O2SAT 100; BMI 44.0
[2023-05-09] VITALS (17 sets, daily range): BP systolic 102–142; BP diastolic 63–89; PULSE 61–100; RESP 16–34; TEMP 35.7–36.9; O2SAT 99–100; BMI 44.6
--- NOTE | 2023-05-09 00:23 | ADMGEN ---
This patient, Betty Hannah, was admitted to IMU Room 207-01 at 2350. Patient/family oriented to hospital policies and general routines including ID bracelet, bed and alarms, visiting hours, pain management, procedures, bathroom and other care routines, personal items, smoking policy, room service/diet, and visiting hours. Information on how to activate the Rapid Response Team has been discussed. Patient/Family are encouraged to report perceived risks to care and to ask questions if they do not understand what they are told or what they should do.
[2023-05-09] MEDS: ENOXAPARIN 120 MG/0.8 ML SYRINGE SUB-Q (02:15)
[2023-05-09 02:58] LABS: Troponin I 0.087 ng/mL (0.000-0.034)
--- NOTE | 2023-05-09 06:00 | ECHO_ITS ---
Patient Info Name: Betty Hannah Age: 32 years : 1990 Gender: Female Ht: 61 in Wt: 260 lbs BSA: 2.33 m2 HR: 100 bpm BP: 134 / 75 mmHg Heart Rhythm: Tachycardia Technical Quality: Good Exam Date: 05/09/2023 9:37 AM Exam Location: Echo Lab Patient Status: Outpatient Admit Date: 05/08/2023 Staff Ordering Physician: Jonathan Santoyo MD Heel Builder Machine: Candelario Poe RDCS Attending Provider: Yadira Weston DO Referring Physician: Yarelis FISCHER; Exam Type: CA echo doppler color flow Study Info Indications - HTN, ELEVATED BNP, ELEVATED TROPONIN Complete two-dimensional, color flow and Doppler transthoracic echocardiogram is performed. Summary 1. Complete two-dimensional, color flow and Doppler transthoracic echocardiogram is performed. 2. Left ventricular chamber dimension is mildly enlarged. 3. Left ventricular systolic function is normal, estimated at 60-65%. 4. There is mildly increased left ventricular wall thickness. 5. The left ventricular diastolic function is grade I diastolic dysfunction. 6. Left atrial chamber dimension is mildly enlarged. 7. There is mild mitral valve regurgitation. 8. There is mild tricuspid valve regurgitation. Left Ventricle Left ventricular chamber dimension is mildly enlarged. Left ventricular systolic function is normal, estimated at 60-65%. There is mildly increased left ventricular wall thickness. The left ventricular diastolic function is grade I diastolic dysfunction. Right Ventricle Right ventricular chamber dimension is normal. Right ventricular systolic function is normal. Left Atria Left atrial chamber dimension is mildly enlarged. Right Atria Right atrial chamber dimension is normal. Atrial Septum Intact interatrial septum visualized by color flow imaging. Aortic Valve The aortic valve is trileaflet. There is mild aortic valve sclerosis. There is no aortic valve stenosis. There is trace aortic valve regurgitation. Pulmonic Valve The pulmonic valve is normal. There is no pulmonic valve stenosis. There is trace pulmonic regurgitation. Mitral Valve The mitral valve has normal leaflets. There is no mitral valve stenosis. There is mild mitral valve regurgitation. Tricuspid Valve The tricuspid valve leaflets are normal. There is no significant tricuspid valve stenosis. There is mild tricuspid valve regurgitation. No pulmonary hypertension, estimated pulmonary arterial systolic pressure is 28 mmHg. Pericardium/Pleural The pericardium appears normal. There is no pericardial effusion. Inferior Vena Cava Normal inferior vena cava with >50% collapse upon inspiration consistent with normal right atrial pressure, 10 mmHg. Aorta The aortic root size at the sinus of Valsalva is normal. Left Ventricular Outflow Tract Name Value Normal LVOT 2D LVOT Diameter 1.8 cm LVOT Doppler LVOT Peak Gradient 6 mmHg LVOT Mean Gradient 4 mmHg LVOT VTI 25 cm LVOT VTI/AV VTI Ratio 0.7 LVOT Stroke Volume 62 ml LVOT CO 4.5 l/min LVOT CI
[2023-05-09 08:30] LABS: Hematocrit 31.9 % (37.0-47.0); Hemoglobin 10.4 g/dL (12.0-15.0); Mean Corpuscular HGB Conc 32.6 g/dl (32-36); Mean Corpuscular Hemoglobin 28.3 pg (26-34); Mean Corpuscular Volume 86.7 fl (80-100); Platelet Count Result 139 k/mm3 (150-375); Red Blood Count 3.68 M/mm3 (4.2-5.4); Red Cell Distribution Width 15.5 % (11.5-14.5); White Blood Count 7.8 K/mm3 (4.5-10.0)
--- NOTE | 2023-05-09 08:39 | PM.IMHP ---
H&P: HPI History of Present Illness Date/Time: 05/09/23 07:00 Chief Complaint: Chest pain and shortness of breath Narrative: 32-year-old female with a past medical history of essential hypertension, persistent morbid obesity despite gastric sleeve and GERD who presented to the ER with chest pain and shortness of breath. The patient has had prior hospitalizations in 2021 for the patient reported that her symptoms began on the . She had for gotten to take her labetalol before going to work. During work be she became tremulous in her upper and lower extremity. Her extremities felt so weak that she did not think she was going to be able to Drive She actually ordered the who per to take her home. She felt extremely fatigued. She developed shortness of breath to the extent that she could not walk across the room without stopping to rest. He denied having any palpitations. She was not having any sweating. ?She denies any nausea or vomiting. However she did have 1 episode of regurgitation of bile but she states that this is not unusual for her when she forgets to take her omeprazole. She reports that she took her omeprazole to work and that some coworkers ended up using her omeprazole. She reports that would made her come into the ER was chest pain that started with ambulation then she became scared. The patient is tearful when discussing her symptoms. She reports that she had a gastric sleeve in July of 2019. Since she had her most recent child in September she has gained 40 lb of that weight back. She denies any lower extremity swelling, orthopnea or paroxysmal nocturnal dyspnea. She does have crowded posterior oropharynx in feels fatigued having a good night sleep. She has never had a sleep study. She denies any urinary or bowel symptoms but does state that her urine is little bit darker today than usual. She has not had much of an appetite but has been craving water. She reports that she has been drinking large amounts of water in the last couple of days. Patient does have a history of essential hypertension although she denies it. She was hospitalized in July of 2021 for uncontrolled hypertension. She was restarted on nifedipine that she had been on previously. She also had reported to the ER provider that she had ran out of nifedipine for about a month. She had went to urgent care 04/13/2023 and was given new script for nifedipine and labetalol at which time she started taking them again. 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 Review of Systems Review of Systems: 12 systems were reviewed with pertinent positives and negatives per HPI. Except as documented in the HPI, all other systems were reviewed and are negative. [facility] Past Medical History Medical History (Updated 05/09/23 @ 09:24 by Yadira Weston DO) Hepatic steatosis HTN (hypertension) Morbid obesity PIH ( induced hypertension) Surgical History Surgical History (Updated 05/09/23 @ 09:16 by Yadira Weston DO) History of ankle surgery (~2019) 2019 History of x 2 S/P gastric sleeve procedure (~2020) Family History Family History (Updated 05/09/23 @ 09:18 by Yadira Weston DO) Sibling Cancer Grandparent Cancer Father Hypertension Social History Social History (Updated 05/09/23 @ 09:20 by Yadira Weston DO) Social History: Patient lives at home with her 3 children ages 12 years old, 3 years old and 7-month-old. She is single. She used to smoke a pack of cigarettes per week but quit smoking 2019. She used to drink moderate heavy consumption but has not done so in several years. She decided she was going to make better life choices. She denies any illicit substance use. Code status: Full code Surrogate decision maker: Grandmother Smoking packs per day: 0.22 Smoking cigarettes per day: 4.4 Years sm
[2023-05-09 08:45] LABS: Alanine Aminotransferase 29 U/L (6-35); Albumin Level 3.3 g/dL (3.5-5.1); Alkaline Phosphatase 86 U/L (38-126); Anion Gap 9 mmol/L (8-16); Aspartate Amino Transferase 46 U/L (14-36); Bilirubin,Total 0.6 mg/dL (0.2-1.3); Blood Urea Nitrogen 20 mg/dL (7-17); Calcium 7.2 mg/dL (8.4-10.2); Carbon Dioxide 21 mmol/L (22-30); Chloride 101 mmol/L (98-107); Estimated CRCL calculation 76 ml/min; Estimated Glomerular Filt Rate 52; Glucose 100 mg/dL (65-110); Sodium 131 mmol/L (137-145)
[2023-05-09] MEDS: ONDANSETRON INJ 4 MG/2 ML VIAL IV PUSH (09:13)
[2023-05-09] MEDS: ASPIRIN 81 MG ENTERIC TABLET PO (09:13)
[2023-05-09] MEDS: MAGNESIUM SULF 4 GM/WATER100ML 4 GM/100 ML BAG IVPB (09:13)
[2023-05-09] MEDS: PANTOPRAZOLE 40 MG TABLET PO (09:13)
[2023-05-09] MEDS: carvediloL 25 MG TABLET PO ×2 (09:14→21:03)
--- NOTE | 2023-05-09 12:34 | PM.IMPN ---
Progress Note: A&P Assessment and Plan (1) Dyspnea on exertion: Code(s): R06.09 - Other forms of dyspnea Status: Acute Assessment and Plan: Incentive spirometry (2) Chest pain: Qualifiers: Chest pain type: unspecified Qualified Code(s): R07.9 - Chest pain, unspecified Code(s): R07.9 - Chest pain, unspecified Status: Acute (3) Elevated troponin: Code(s): R79.89 - Other specified abnormal findings of blood chemistry Status: Acute Assessment and Plan: ECHO: Summary ? 1. Complete two-dimensional, color flow and Doppler transthoracic echocardiogram is performed. ? 2. Left ventricular chamber dimension is mildly enlarged. ? 3. Left ventricular systolic function is normal, estimated at 60-65%. ? 4. There is mildly increased left ventricular wall thickness. ? 5. The left ventricular diastolic function is grade I diastolic dysfunction. ? 6. Left atrial chamber dimension is mildly enlarged. ? 7. There is mild mitral valve regurgitation. ? 8. There is mild tricuspid valve regurgitation. (4) Essential hypertension: Code(s): I10 - Essential (primary) hypertension Status: Acute Assessment and Plan: resume Nifedipine (5) Morbid obesity: Code(s): E66.01 - Morbid (severe) obesity due to excess calories Status: Acute Assessment and Plan: Diet and lifestyle modification (6) Patient's noncompliance with other medical treatment and regimen for other reason: Code(s): Z91.198 - Patient's noncompliance with other medical treatment and regimen for other reason Status: Acute Assessment and Plan: Education on compliance (7) GERD (gastroesophageal reflux disease): Code(s): K21.9 - Gastro-esophageal reflux disease without esophagitis Status: Acute Assessment and Plan: Resume PPI (8) UTI (urinary tract infection): Code(s): N39.0 - Urinary tract infection, site not specified Status: Acute Assessment and Plan: urine culture; Ceftriaxone (9) Fluid overload: Code(s): E87.70 - Fluid overload, unspecified Status: Acute Assessment and Plan: Elevated BNP and troponin Unremarkable ECHO Furosemide BID Plan Patient is having dyspnea on exertion for about a week and her presented after symptoms worsened into chest discomfort. Patient blood pressure was actually stable on arrival to the ER. But the patient had been having difficulty with compliance with medications. I suspect patient may have some component of hypertensive renal disease or hypertensive cardiomyopathy. The patient's troponin profile was relatively flat and more suggestive of chronic troponin leak. Will obtain echocardiogram to evaluate for possible cardiomyopathy. The patient's echo in 2021 also demonstrated diastolic dysfunction. Patient does have a history of moderate pulmonary hypertension on echocardiogram from 2021. I would like to adjust the patient's blood pressure meds in discontinue the labetalol and place her on Coreg. Will continue Procardia. The patient does have a history of moderate pulmonary hypertension noted on echocardiogram 2021. Would benefit from outpatient sleep study. Will order ApneaLink. Patient has been admitted as observation status. Time Spent With Patient Time with patient: 25 - 35 minutes Subjective Date/time seen: 05/09/23 12:34 Interval history: Seen and examined; intermittent nausea with emesis x1 Review of Systems Review of Systems: 12 systems were reviewed with pertinent positives and negatives per HPI. Except as documented in the HPI, all other systems were reviewed and are negative. Constitutional: Constitutional: Reports chills, Reports fatigue, Reports night sweats and Reports weakness Eyes: Eyes: Reports no additional eye complaints ENT: Reports Normal hearing present, Denies dysphagia and Denies nasal discharge Respiratory: Respiratory: Repor
[2023-05-09] MEDS: KETOROLAC 15 MG/ML VIAL (*BKC) IV PUSH (14:28)
[2023-05-09] MEDS: NIFEdipine 30 MG TAB.ER.24 PO (17:21)
[2023-05-09] MEDS: FUROSEMIDE INJ 40 MG/4 ML VIAL 20 MG IV PUSH (17:21)
[2023-05-09 17:53] LABS: Creatinine Urine 167.9 mg/dL
[2023-05-09 17:54] LABS: Sodium Urine Random 20 meq/L
[2023-05-10] VITALS (19 sets, daily range): BP systolic 104–138; BP diastolic 57–87; PULSE 64–88; RESP 16–34; TEMP 35.7–36.9; O2SAT 96–100
[2023-05-10 08:17] LABS: Basophils Percent Auto 0.3 % (0.2-1.2); Eosinophils Absolute Auto 0.1 K/mm3 (0-0.3); Eosinophils Percent Auto 1.3 % (0-4.4); Hemoglobin 10.1 g/dL (12.0-15.0); Immature Granulocyte Absolute 0.02 K/mm3 (0.00-0.031); Immature Granulocyte Percent A 0.5 % (0-0.5); Lymphocytes Absolute Auto 0.54 K/mm3 (0.9-3.2); Lymphocytes Percent Auto 13.8 % (18.3-44.2); Mean Corpuscular HGB Conc 32.6 g/dl (32-36); Mean Corpuscular Hemoglobin 28.1 pg (26-34); Mean Corpuscular Volume 86.4 fl (80-100); Mean Platelet Volume 10.2 fl (7.4-10.4); Monocytes Absolute Auto 0.6 K/mm3 (0.1-0.6); Monocytes Percent Auto 15.1 % (2.6-8.5); Neutrophils Absolute Auto 2.7 K/mm3 (1.3-6.7); Platelet Count Result 138 k/mm3 (150-375); Red Blood Count 3.59 M/mm3 (4.2-5.4); Red Cell Distribution Width 15.4 % (11.5-14.5); White Blood Count 3.9 K/mm3 (4.5-10.0)
[2023-05-10 08:35] LABS: Alanine Aminotransferase 34 U/L (6-35); Albumin Level 3.4 g/dL (3.5-5.1); Alkaline Phosphatase 93 U/L (38-126); Anion Gap 9 mmol/L (8-16); Aspartate Amino Transferase 61 U/L (14-36); Bilirubin,Total 0.5 mg/dL (0.2-1.3); Blood Urea Nitrogen 18 mg/dL (7-17); Calcium 8.1 mg/dL (8.4-10.2); Carbon Dioxide 22 mmol/L (22-30); Chloride 100 mmol/L (98-107); Estimated CRCL calculation 90 ml/min; Estimated Glomerular Filt Rate > 60; Glucose 98 mg/dL (65-110); Potassium 2.8 mmol/L (3.4-5.0); Sodium 131 mmol/L (137-145)
[2023-05-10] MEDS: PANTOPRAZOLE 40 MG TABLET PO (09:23)
[2023-05-10] MEDS: POTASSIUM CHLORIDE 20 MEQ ER TABLET 40 MEQ PO ×2 (09:24→17:37)
[2023-05-10] MEDS: ASPIRIN 81 MG ENTERIC TABLET PO (09:24)
[2023-05-10] MEDS: HYDROcodone/acetaminophen (*CRX) 5-325 MG TABLET 1 TAB PO (11:33)
[2023-05-10] MEDS: SODIUM CHLORIDE 0.9% IV 500 ML IV CONT (11:36)
--- NOTE | 2023-05-10 15:10 | PM.IMPN ---
Progress Note: A&P Assessment and Plan (1) Dyspnea on exertion: Code(s): R06.09 - Other forms of dyspnea Status: Acute Assessment and Plan: Incentive spirometry (2) Chest pain: Qualifiers: Chest pain type: unspecified Qualified Code(s): R07.9 - Chest pain, unspecified Code(s): R07.9 - Chest pain, unspecified Status: Acute Assessment and Plan: Improved Recheck Troponin (3) Elevated troponin: Code(s): R79.89 - Other specified abnormal findings of blood chemistry Status: Acute Assessment and Plan: ECHO: Summary ? 1. Complete two-dimensional, color flow and Doppler transthoracic echocardiogram is performed. ? 2. Left ventricular chamber dimension is mildly enlarged. ? 3. Left ventricular systolic function is normal, estimated at 60-65%. ? 4. There is mildly increased left ventricular wall thickness. ? 5. The left ventricular diastolic function is grade I diastolic dysfunction. ? 6. Left atrial chamber dimension is mildly enlarged. ? 7. There is mild mitral valve regurgitation. ? 8. There is mild tricuspid valve regurgitation. (4) Essential hypertension: Code(s): I10 - Essential (primary) hypertension Status: Acute Assessment and Plan: resume Nifedipine (5) Morbid obesity: Code(s): E66.01 - Morbid (severe) obesity due to excess calories Status: Acute Assessment and Plan: Diet and lifestyle modification (6) Patient's noncompliance with other medical treatment and regimen for other reason: Code(s): Z91.198 - Patient's noncompliance with other medical treatment and regimen for other reason Status: Acute Assessment and Plan: Education on compliance (7) GERD (gastroesophageal reflux disease): Code(s): K21.9 - Gastro-esophageal reflux disease without esophagitis Status: Acute Assessment and Plan: Resume PPI (8) UTI (urinary tract infection): Code(s): N39.0 - Urinary tract infection, site not specified Status: Acute Assessment and Plan: urine culture; Ceftriaxone (9) Fluid overload: Code(s): E87.70 - Fluid overload, unspecified Status: Acute Assessment and Plan: Elevated BNP and troponin Unremarkable ECHO Furosemide held due to dizziness Repeat orthostatics (10) Orthostatic dizziness: Code(s): R42 - Dizziness and giddiness Status: Acute Assessment and Plan: Lasix held; give bolus Repeat orthostatics (11) Back pain: Code(s): M54.9 - Dorsalgia, unspecified Status: Acute Assessment and Plan: May be MSK Given [place] x1 Plan Patient is having dyspnea on exertion for about a week and her presented after symptoms worsened into chest discomfort. Patient blood pressure was actually stable on arrival to the ER. But the patient had been having difficulty with compliance with medications. I suspect patient may have some component of hypertensive renal disease or hypertensive cardiomyopathy. The patient's troponin profile was relatively flat and more suggestive of chronic troponin leak. Will obtain echocardiogram to evaluate for possible cardiomyopathy. The patient's echo in 2021 also demonstrated diastolic dysfunction. Patient does have a history of moderate pulmonary hypertension on echocardiogram from 2021. I would like to adjust the patient's blood pressure meds in discontinue the labetalol and place her on Coreg. Will continue Procardia. The patient does have a history of moderate pulmonary hypertension noted on echocardiogram 2021. Would benefit from outpatient sleep study. Will order ApneaLink. Patient has been admitted as observation status. Time Spent With Patient Time with patient: 25 - 35 minutes Subjective Date/time seen: 05/10/23 15:10 Interval history: Seen and examined; Complained of dizziness Eager to go home; still feels fatigued and intermittently sweaty Back pain Re
[2023-05-10 15:45] LABS: Magnesium 1.9 mg/dL (1.6-2.3)
[2023-05-10 15:58] LABS: Troponin I 0.013 ng/mL (0.000-0.034)
--- NOTE | 2023-05-10 16:47 | PC.NURSE ---
I have checked Zahira Miles's student charting and approved it.
[2023-05-10] MEDS: NIFEdipine 30 MG TAB.ER.24 PO (17:37)
[2023-05-10] MEDS: carvediloL 25 MG TABLET PO (20:50)
[2023-05-11] VITALS (21 sets, daily range): BP systolic 102–133; BP diastolic 62–77; PULSE 60–95; RESP 16–19; TEMP 35.9–37.2; O2SAT 99–100
[2023-05-11 04:59] LABS: Hematocrit 28.9 % (37.0-47.0); Hemoglobin 9.1 g/dL (12.0-15.0); Mean Corpuscular HGB Conc 31.5 g/dl (32-36); Mean Corpuscular Hemoglobin 27.7 pg (26-34); Mean Corpuscular Volume 87.8 fl (80-100); Mean Platelet Volume 10.4 fl (7.4-10.4); Platelet Count Result 148 k/mm3 (150-375); Red Blood Count 3.29 M/mm3 (4.2-5.4); Red Cell Distribution Width 15.2 % (11.5-14.5); White Blood Count 3.2 K/mm3 (4.5-10.0)
[2023-05-11 05:19] LABS: Alanine Aminotransferase 33 U/L (6-35); Alkaline Phosphatase 84 U/L (38-126); Anion Gap 7 mmol/L (8-16); Aspartate Amino Transferase 61 U/L (14-36); Bilirubin,Total 0.4 mg/dL (0.2-1.3); Blood Urea Nitrogen 18 mg/dL (7-17); Calcium 8.1 mg/dL (8.4-10.2); Carbon Dioxide 23 mmol/L (22-30); Chloride 104 mmol/L (98-107); Estimated CRCL calculation 89 ml/min; Estimated Glomerular Filt Rate > 60; Glucose 85 mg/dL (65-110); Potassium 3.1 mmol/L (3.4-5.0); Sodium 134 mmol/L (137-145)
[2023-05-11 05:25] LABS: Band Neutrophils Percent 1 % (0-6); Lymphocytes Absolute Manual 0.96 K/mm3 (1.1-4.5); Lymphocytes Percent Manual 30 % (18-44); Monocytes Absolute Manual 0.38 K/mm3 (0.1-0.90); Monocytes Percent Manual 12 % (3-9); Neutrophils Percent Manual 49 % (46-73); Total Cells Counted 100
[2023-05-11 05:26] LABS: Eosinophils Absolute Manual 0.19 K/mm3 (0.02-0.5); Eosinophils Percent Manual 6 % (0-4); Large Platelets Present; Metamyelocytes Percent 2 %; Platelet Estimate Adequate (Adequate); Schistocytes None Seen (NORMAL)
[2023-05-11] MEDS: PANTOPRAZOLE 40 MG TABLET PO (08:18)
[2023-05-11] MEDS: carvediloL 25 MG TABLET PO ×2 (08:18→21:20)
[2023-05-11] MEDS: ASPIRIN 81 MG ENTERIC TABLET PO (08:19)
[2023-05-11] MEDS: FUROSEMIDE INJ 40 MG/4 ML VIAL 20 MG IV PUSH (08:20)
--- NOTE | 2023-05-11 13:40 | PM.DS ---
DS: Admitting Diagnosis Discharge Date 05/11/23 Admitting Diagnosis 1. UTI 2. Chest pain; NSTEMI 3. Fluid overload; Elevated BNP 4. Chills; intermittent sweats DS: Discharge Diagnosis Discharge Diagnosis (1) Fluid overload: Code(s): E87.70 - Fluid overload, unspecified Status: Acute Assessment and Plan: Lasix x1; developed orthostatic dizziness (2) Morbid obesity: Code(s): E66.01 - Morbid (severe) obesity due to excess calories Status: Acute Assessment and Plan: BMI 44, Diet and lifestyle modification (3) Elevated troponin: Code(s): R79.89 - Other specified abnormal findings of blood chemistry Status: Acute Assessment and Plan: Maybe 2/2 underlying febrile illness It tapered off Maybe 2/2 fluid overload and demand ischemia No chest pain; No history of heart disease in family (4) Patient's noncompliance with other medical treatment and regimen for other reason: Code(s): Z91.198 - Patient's noncompliance with other medical treatment and regimen for other reason Status: Acute Assessment and Plan: Education on medication compliance (5) Orthostatic dizziness: Code(s): R42 - Dizziness and giddiness Status: Acute Assessment and Plan: resolved; post-fluids (6) History of dysuria: Code(s): Z87.898 - Personal history of other specified conditions Status: Acute Assessment and Plan: Symptomatic dysuria s/p Ceftriaxone (7) SIRS (systemic inflammatory response syndrome): Code(s): R65.10 - Systemic inflammatory response syndrome (SIRS) of non-infectious origin without acute organ dysfunction Status: Acute Assessment and Plan: Chills, rigors, dizziness; Tachycardia Plan Acute and principal conditions 1. Chest discomfort; Shortness of breath 2. Elevated troponin; NSTEMi 3. Dysuria with chills. was on Ceftriaxone Rx: Lasix, BB, Nifedipine ECHO Lipid panel, HbA1c Chronic and stable conditions 1. Hypertension. Carvedilol, Nifedipine 2. Obesity, BMI 44. diet and lifestyle modification 3. GERD. on PPI DS: Summary Hospital Course Reason for hospitalization: 1. Chills, Malaise 2. NSTEMI; Elevated troponin. Maybe 2/2 tachycardia 3. Rebound tachycardia; due to poor medication compliance Hospital Course: Patient is a 32-year-old female who presents emergency department with chief complaint of chest pain and shortness of breath patient reports last 2 days she has been feeling very short of breath and reports that she has also had some edema.? Patient reports that she has had hypertension and is on labetalol and Procardia bed at ran out about a month ago and was started back on them by urgent care patient states that had during her she did have preeclampsia and has been hypertensive since then the patient reports she has had a bit of discomfort in her chest and also has reported that she has had some shortness of breath with exertion.? The patient has noted severe blood pressures have been running very high at home as well including the 190s over 110's Influenza A/B, RSV, COVID-19 NEGATIVE ECHO: Summary ? 1. Complete two-dimensional, color flow and Doppler transthoracic echocardiogram is performed. ? 2. Left ventricular chamber dimension is mildly enlarged. ? 3. Left ventricular systolic function is normal, estimated at 60-65%. ? 4. There is mildly increased left ventricular wall thickness. ? 5. The left ventricular diastolic function is grade I diastolic dysfunction. ? 6. Left atrial chamber dimension is mildly enlarged. ? 7. There is mild mitral valve regurgitation. ? 8. There is mild tricuspid valve regurgitation. Troponin: 05/10/23 15:25: 0.013 05/09/23 02:07: 0.087?H* 05/08/23 22:22: 0.096?H*?? 05/08/23 19:00: 0.078?H* CTA Chest: 1. No pulmonary embolus. Sensitivity is mildly decreased by motion artifact. CXR: 1. No acute cardiopulmonary disease. ECG: SINUS TACHY
[2023-05-11 15:20] LABS: Cholesterol 134 mg/dL (0-200); HDL Direct 38 mg/dL; Triglycerides 93 mg/dL (<150)
[2023-05-11 15:28] LABS: Hemoglobin A1C 4.5 % (<5.7)
[2023-05-11 15:31] LABS: LDL Cholesterol Direct 76 mg/dL
[2023-05-11 15:52] LABS: Bacteria Urine None Seen /hpf; RBC Urine >100 /hpf (0-2); Squamous Epithelial Cell Urine Occasional /hpf (Few)
[2023-05-11 15:58] LABS: Add Urine Microscopic? YES; Appearance Urine Cloudy (Clear); Bilirubin Urine Negative (Negative); Blood Urine 3+ (Negative); Color Urine Red (Yellow); Glucose Urine UA Negative (Negative); Ketones Urine Negative (Negative); Leukocyte Esterase Ur Trace LEU/UL (NEGATIVE); Nitrate Urine Negative (Negative); Protein Urine 1+ mg/dL (Negative); Specific Grav Ur 1.012 (1.001-1.035); Urobilinogen Urine 0.2 mg/dL (<2.0); pH Urine 5.5 (5.0-9.0)
--- NOTE | 2023-05-11 16:35 | PC.NURSE ---
Chris Mccallum / Anabella RN Cancel D/C place a consult for Cardiology For elevated Troponin et the pt has new complaints of malaise with ADLs.
--- NOTE | 2023-05-11 16:37 | PM.IMPN ---
Progress Note: A&P Assessment and Plan (1) Fluid overload: Code(s): E87.70 - Fluid overload, unspecified Status: Acute Assessment and Plan: Lasix x1; developed orthostatic dizziness (2) Morbid obesity: Code(s): E66.01 - Morbid (severe) obesity due to excess calories Status: Acute Assessment and Plan: BMI 44, Diet and lifestyle modification (3) Elevated troponin: Code(s): R79.89 - Other specified abnormal findings of blood chemistry Status: Acute Assessment and Plan: Maybe 2/2 underlying febrile illness It tapered off Maybe 2/2 fluid overload and demand ischemia No chest pain; No history of heart disease in family (4) Patient's noncompliance with other medical treatment and regimen for other reason: Code(s): Z91.198 - Patient's noncompliance with other medical treatment and regimen for other reason Status: Acute Assessment and Plan: Education on medication compliance (5) Orthostatic dizziness: Code(s): R42 - Dizziness and giddiness Status: Acute Assessment and Plan: resolved; post-fluids (6) History of dysuria: Code(s): Z87.898 - Personal history of other specified conditions Status: Acute Assessment and Plan: Symptomatic dysuria s/p Ceftriaxone (7) SIRS (systemic inflammatory response syndrome): Code(s): R65.10 - Systemic inflammatory response syndrome (SIRS) of non-infectious origin without acute organ dysfunction Status: Acute Assessment and Plan: Chills, rigors, dizziness; Tachycardia Plan Hospital Course: Patient is a 32-year-old female who presents emergency department with chief complaint of chest pain and shortness of breath patient reports last 2 days she has been feeling very short of breath and reports that she has also had some edema.? Patient reports that she has had hypertension and is on labetalol and Procardia bed at ran out about a month ago and was started back on them by urgent care patient states that had during her she did have preeclampsia and has been hypertensive since then the patient reports she has had a bit of discomfort in her chest and also has reported that she has had some shortness of breath with exertion.? The patient has noted severe blood pressures have been running very high at home as well including the 190s over 110's Influenza A/B, RSV, COVID-19 NEGATIVE ECHO: Summary ? 1. Complete two-dimensional, color flow and Doppler transthoracic echocardiogram is performed. ? 2. Left ventricular chamber dimension is mildly enlarged. ? 3. Left ventricular systolic function is normal, estimated at 60-65%. ? 4. There is mildly increased left ventricular wall thickness. ? 5. The left ventricular diastolic function is grade I diastolic dysfunction. ? 6. Left atrial chamber dimension is mildly enlarged. ? 7. There is mild mitral valve regurgitation. ? 8. There is mild tricuspid valve regurgitation. Troponin: 05/10/23 15:25: 0.013 05/09/23 02:07: 0.087?H* 05/08/23 22:22: 0.096?H*?? 05/08/23 19:00: 0.078?H* CTA Chest:?1. No pulmonary embolus. Sensitivity is mildly decreased by motion artifact. CXR: 1. No acute cardiopulmonary disease. ECG: SINUS TACHYCARDIA WITH SHORT SC INTERVAL POSSIBLE LEFT ATRIAL ENLARGEMENT; POSSIBLE LEFT VENTRICULAR HYPERTROPHY? CONSIDER INFERIOR INFARCT, AGE INDETERMINATE, BORDERLINE ST ABNORMALITY- HIGH LATERAL LEADS ABNORMAL ECG COMPARED TO ECG 07/14/2021 22:47:07 SINUS TACHYCARDIA?NOW PRESENT; ST (T WAVE) DEVIATION NOW PRESENT Rx: Lasix x1; Nifedipine, At discharge, she was placed on Carvedilol instead of Labetalol, she claims it is more tolerable Nifedipine is to be taken only if BP >140/80 Acute and principal conditions 1. Chest discomfort; Shortness of breath 2. Elevated troponin; NSTEMi 3. UTI; Dysuria with chills. on Ceftriaxone Rx: Lasix, BB, Nifedipine ECHO Lipid panel, HbA1c 05/11/23: Still feels weak on
--- NOTE | 2023-05-11 18:13 | PC.NURSE ---
Addendum entered by Lindsay Cabrera RN 05/11/23 19:40: wasted LASIX due to cap being removed off prior to admin Original Note: Notified Dr. Johnson of the pts B/P et HR 1700 et 1800 medications held. With no new interventions at this time
[2023-05-12] VITALS (13 sets, daily range): BP systolic 107–135; BP diastolic 51–85; PULSE 58–83; RESP 16–18; TEMP 36–36.5; O2SAT 98–100
[2023-05-12 04:54] LABS: Basophils Percent Auto 0.4 % (0.2-1.2); Eosinophils Absolute Auto 0.3 K/mm3 (0-0.3); Eosinophils Percent Auto 6.7 % (0-4.4); Hematocrit 29.3 % (37.0-47.0); Hemoglobin 9.5 g/dL (12.0-15.0); Immature Granulocyte Absolute 0.04 K/mm3 (0.00-0.031); Immature Granulocyte Percent A 0.8 % (0-0.5); Lymphocytes Percent Auto 23.6 % (18.3-44.2); Mean Corpuscular HGB Conc 32.4 g/dl (32-36); Mean Corpuscular Hemoglobin 27.9 pg (26-34); Mean Corpuscular Volume 86.2 fl (80-100); Mean Platelet Volume 10.2 fl (7.4-10.4); Monocytes Absolute Auto 0.8 K/mm3 (0.1-0.6); Monocytes Percent Auto 14.7 % (2.6-8.5); Neutrophils Absolute Auto 2.7 K/mm3 (1.3-6.7); Neutrophils Percent Auto 53.8 % (45.5-73.1); Platelet Count Result 200 k/mm3 (150-375); Red Cell Distribution Width 15.2 % (11.5-14.5); White Blood Count 5.1 K/mm3 (4.5-10.0)
[2023-05-12 05:05] LABS: Alanine Aminotransferase 41 U/L (6-35); Albumin Level 3.3 g/dL (3.5-5.1); Alkaline Phosphatase 98 U/L (38-126); Anion Gap 4 mmol/L (8-16); Aspartate Amino Transferase 65 U/L (14-36); Bilirubin,Total 0.3 mg/dL (0.2-1.3); Blood Urea Nitrogen 22 mg/dL (7-17); Calcium 8.1 mg/dL (8.4-10.2); Carbon Dioxide 28 mmol/L (22-30); Chloride 104 mmol/L (98-107); Estimated CRCL calculation 82 ml/min; Estimated Glomerular Filt Rate 58; Glucose 95 mg/dL (65-110); Potassium 3.1 mmol/L (3.4-5.0); Sodium 136 mmol/L (137-145)
[2023-05-12] MEDS: FUROSEMIDE INJ 40 MG/4 ML VIAL 20 MG IV PUSH (09:07)
[2023-05-12] MEDS: ASPIRIN 81 MG ENTERIC TABLET PO (09:12)
[2023-05-12] MEDS: PANTOPRAZOLE 40 MG TABLET PO (09:12)
[2023-05-12] MEDS: carvediloL 25 MG TABLET PO (09:12)
--- NOTE | 2023-05-12 13:53 | PM.DS ---
DS: Admitting Diagnosis Discharge Date 05/12/2023: Admitting Diagnosis Dyspnea on exertion Chest pain DS: Discharge Diagnosis Discharge Diagnosis (1) SIRS (systemic inflammatory response syndrome): Code(s): R65.10 - Systemic inflammatory response syndrome (SIRS) of non-infectious origin without acute organ dysfunction Status: Acute (2) History of dysuria: Code(s): Z87.898 - Personal history of other specified conditions Status: Acute (3) Back pain: Code(s): M54.9 - Dorsalgia, unspecified Status: Acute (4) GERD (gastroesophageal reflux disease): Code(s): K21.9 - Gastro-esophageal reflux disease without esophagitis Status: Acute (5) Patient's noncompliance with other medical treatment and regimen for other reason: Code(s): Z91.198 - Patient's noncompliance with other medical treatment and regimen for other reason Status: Acute (6) Dyspnea on exertion: Code(s): R06.09 - Other forms of dyspnea Status: Acute (7) Chest pain: Qualifiers: Chest pain type: unspecified Qualified Code(s): R07.9 - Chest pain, unspecified Code(s): R07.9 - Chest pain, unspecified Status: Acute (8) Morbid obesity: Code(s): E66.01 - Morbid (severe) obesity due to excess calories Status: Acute (9) Essential hypertension: Code(s): I10 - Essential (primary) hypertension Status: Acute DS: Summary Hospital Course Reason for hospitalization: Dyspnea on exertion Chest pain Hospital Course: H&P: HPI History of Present Illness Date/Time: 05/09/23 07:00 Chief Complaint: Chest pain and shortness of breath Narrative: 32-year-old female with a past medical history of essential hypertension, persistent morbid obesity despite gastric sleeve and GERD who presented to the ER with chest pain and shortness of breath.? The patient has had prior hospitalizations in 2021 for the patient reported that her symptoms began on the .? She had for gotten to take her labetalol before going to work.? During work be she became tremulous in her upper and lower extremity.? Her extremities felt so weak that she did not think she was going to be able to Drive? She actually ordered the who per to take her home.? She felt extremely fatigued.? She developed shortness of breath to the extent that she could not walk across the room without stopping to rest.? He denied having any palpitations.? She was not having any sweating.? ?She denies any nausea or vomiting.? However she did have 1 episode of regurgitation of bile but she states that this is not unusual for her when she forgets to take her omeprazole.? She reports that she took her omeprazole to work and that some coworkers ended up using her omeprazole.? She reports that would made her come into the ER was chest pain that started with ambulation then she became scared.? The patient is tearful when discussing her symptoms.? She reports that she had a gastric sleeve in July of 2019.? Since she had her most recent child in September she has gained 40 lb of that weight back.? She denies any lower extremity swelling, orthopnea or paroxysmal nocturnal dyspnea.? She does have crowded posterior oropharynx in feels fatigued having a good night sleep.? She has never had a sleep study.? She denies any urinary or bowel symptoms but does state that her urine is little bit darker today than usual.? She has not had much of an appetite but has been craving water.? She reports that she has been drinking large amounts of water in the last couple of days. Patient does have a history of essential hypertension although she denies it.? She was hospitalized in July of 2021 for uncontrolled hypertension.? She was restarted on nifedipine that she had been on previously.? She also had reported to the ER provider that she had ran out of nifedipine for about a month.? She had went to urgent care 04/13/2023 and was given new script for nifedipine and la
[2023-05-12] MEDS: POTASSIUM CHLORIDE 20 MEQ ER TABLET 40 MEQ PO (14:32)
--- NOTE | 2023-05-12 15:44 | PM.CNCAR ---
Assessment and Plan Assessment and plan (1) Elevated troponin: Code(s): R79.89 - Other specified abnormal findings of blood chemistry Status: Acute Assessment and Plan: Mild troponin elevation failure rapid subtle rise and fall without clear anginal symptoms although she does present with fatigue and shortness of breath. She had some atypical chest pain transiently prior to admission but without any recurrence subsequently. ECG with nonspecific changes. While unlikely she has underlying obstructive CAD this cannot be entirely excluded. Patient states she feels well and is up to going home. I would recommend outpatient Lexiscan nuclear stress test for further evaluation to which patient agrees. Echocardiogram with all wall motion abnormalities, preserved LV systolic function grade 1 diastolic dysfunction no significant valve pathology. Remote history pulmonary hypertension by echocardiogram 2021 resolved on this study. Ruled out for pulmonary embolism as cause. Patient hypertensive prior to admission likely contributed elevated troponin demand ischemia improved since admission. No evidence for Raymundo/pericarditis. Provided patient is feeling well disposition per hospitalist service. Follow-up with PCP cardiology within 4 weeks Lexiscan nuclear stress test within the next 1-2 weeks from our office. (2) Dyspnea on exertion: Code(s): R06.09 - Other forms of dyspnea Status: Acute Assessment and Plan: Essentially resolved. Patient was given IV diuresis but she is not certain if this actually helped her but she feels antibiotics helped her the most in treatment of urinary tract infection. She did not have radiographic evidence of CHF but she did have an elevated BNP, echocardiogram was fairly unremarkable. She was given diuresis intermittently held secondary to hypotension. She is euvolemic on exam. No indication for ongoing diuresis. BP control very important. (3) Essential hypertension: Code(s): I10 - Essential (primary) hypertension Status: Acute Assessment and Plan: Much improved. Check orthostatic vital signs due to complaints of dizziness which has also improved. She feels much better on carvedilol at discontinuation of labetalol. I suspect some of her medications were medication side effects along with uncontrolled hypertension due to noncompliance admission. UTI complicating her general sense of well-being. May continue carvedilol tolerating 25 mg twice daily. Labetalol discontinued. Continue nifedipine 30 mg daily. (4) Chest pain: Qualifiers: Chest pain type: unspecified Qualified Code(s): R07.9 - Chest pain, unspecified Code(s): R07.9 - Chest pain, unspecified Status: Acute Assessment and Plan: Atypical prior to admission resolved without any recurrence. As above, outpatient noninvasive ischemic evaluation Lexiscan nuclear stress test to be obtained from our office within the next 1-2 weeks. She may follow-up with me in the office post discharge in 4 weeks. (5) SIRS (systemic inflammatory response syndrome): Code(s): R65.10 - Systemic inflammatory response syndrome (SIRS) of non-infectious origin without acute organ dysfunction Status: Acute Assessment and Plan: Improved with antibiotics ceftriaxone. Defer management to primary service. (6) UTI (urinary tract infection): Code(s): N39.0 - Urinary tract infection, site not specified Status: Acute Assessment and Plan: As above, improved with ceftriaxone. (7) Orthostatic dizziness: Code(s): R42 - Dizziness and giddiness Status: Acute Assessment and Plan: Discontinue Lasix. (8) Morbid obesity: Code(s): E66.01 - Morbid (severe) obesity due to excess calories Status: Acute Assessment and Plan: Lifestyle modifications exercise and dietary counseling. Unremarkable apnea link screening for KARINA. History of Present Illne
--- NOTE | 2023-05-12 16:51 | PC.NURSE ---
Denies pain no distress noted throughout the day. The pt has been given Discharge instructions et all questions asked et answered. No manifestations of distress noted. awaiting transport per PCT via wheelchair to private family vehicle
--- NOTE | 2023-05-13 21:17 | PC.NURSE ---
A call has been placed multiple times to the pts number listed on the chart to inform the pt has a new order sent over to [facility] for Potassium Per Dr. Jackson with no answer et the mailbox is full. A call was placed to Dr. Eaton office to leave a message that the pt has not been notified of the follow up appointment per discharge note et was unable to leave a message with the exchange. Dr. Sandoval has been given report that this nurse was unable to get in contact with the pt.
== END 2023-05-12 17:20 | disposition home or self-care (01) ==
LOC: ANHED 22:40 → ANHIMU 23:33
PROVIDERS: Emergency Medicine; Internal Medicine; Admitting Provider Internal Medicine; Emergency Provider Emergency Medicine; PCP Internal Medicine; Visit Provider Family Medicine
DX: E87.70 Fluid overload, unspecified (principal); R07.9 Chest pain, unspecified; R06.09 Other forms of dyspnea; R65.10 Systemic inflammatory response syndrome (SIRS) of non-infectious origin without acute organ dysfunction; R79.89 Other specified abnormal findings of blood chemistry; R42 Dizziness and giddiness; R30.0 Dysuria; M54.9 Dorsalgia, unspecified; I10 Essential (primary) hypertension; Z87.891 Personal history of nicotine dependence; I08.1 Rheumatic disorders of both mitral and tricuspid valves; Z98.84 Bariatric surgery status; K21.9 Gastro-esophageal reflux disease without esophagitis; K76.0 Fatty (change of) liver, not elsewhere classified; E66.01 Morbid (severe) obesity due to excess calories; Z68.41 Body mass index [BMI] 40.0-44.9, adult; Z91.198 Patient's noncompliance with other medical treatment and regimen for other reason; Z20.822 Contact with and (suspected) exposure to COVID-19
CPT/HCPCS: 36415; 71046; 71275; 80053; 80061; 81001; 82570; 83036; 83690; 83735; 83880; 84300; 84484; 85025; 85027; 85610; 85730; 87086; 87637; 93005; 93306; 96365; 96372; 96374; 96375; 99285; A9270; G0378; G0379; J0696; J1650; J1885; J1940; J2405; J3475; J7040; Q9967

== ENCOUNTER 2023-11-09 08:17 | Emergency (ER) | payer OTHER, SELFPAY ==
--- NOTE | ~2023-11-09 | CT_ITS ---
EXAMINATION: CT knee LT wo con DATE: 11/09/2023 09:30 INDICATION: One month of right knee pain with popping and burning TECHNIQUE: High resolution computed tomography (CT) of the right knee was performed without intraveno us contrast. Additional sagittal and coronal reconstructions were performed. Automated exposure contr ol and iterative reconstruction technique were employed. The dose-length product was 535.65 mGy-cm. COMPARISON: None FINDINGS: Alignment is normal. No fracture. Cortical irregularity with small central subchondral osteophytes an d a few small central subchondral cysts along the articular surface of the lateral weightbearing femo ral condyle. Extensive subarticular cystlike changes and eburnation along the lateral tibial plateau. This suggests severe osteoarthritis with extensive high-grade chondromalacia although severity of kassi int space narrowing is unable to be assessed on either the current or prior nonweightbearing imaging. Additional subarticular cystlike changes and tiny central subchondral osteophytes at the medial aspe ct of the lateral patellar facet also consistent with overlying high-grade chondromalacia although th ere appears be only mild joint space narrowing with the knee and extended position. Small marginal os teophyte without degenerative subchondral changes at the medial compartment. Physiologic amount fluid at the knee joint. Soft tissues are unremarkable. IMPRESSION: 1. No left knee joint effusion or acute osseous abnormality. 2. 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 Additional likely high-grade chondromalaci a at a smaller region of the lateral patellar facet. Reviewed, dictated and finalized at location A. IMPRESSION: 1. No left knee joint effusion or acute osseous abnormality. 2. 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 Additional likely high-grade chondromalacia at a smaller region of the latera l patellar facet.
--- NOTE | ~2023-11-09 | XR_ITS ---
XR knee LT min 4V 11/09/2023 08:57 Indication: Left knee pain Procedure: 4 views left knee Comparison: No prior studies for comparison. Findings: There is a minimally depressed lateral tibial plateau fracture, age indeterminate. Moderate osteoarthritis of the knee. Small joint effusion. Impression: 1: Age-indeterminate lateral tibial plateau fracture. Consider correlation with CT. Reviewed, dictated and finalized at location B. Impression: 1: Age-indeterminate lateral tibial plateau fracture. Consider correlation with CT.
[2023-11-09 08:20] VITALS: BP 181/119; PULSE 78; RESP 16; TEMP 36.4; O2SAT 100
[2023-11-09 09:19] VITALS: BP 167/81; PULSE 72; RESP 18; O2SAT 100
--- NOTE | 2023-11-09 10:18 | ED.GENADULT ---
HPI - General Adult General Chief complaint: Extremity Injury, Lower Stated complaint: left knee pain Time Seen by Provider: 11/09/23 08:50 History of Present Illness HPI narrative: 33-year-old female presents to the emergency department for evaluation worsening chronic left knee pain. Patient did have a prior surgery on her right ankle and was favoring her left knee. Patient states over the last few weeks he has had worsening burning and popping in the left knee. Patient was noticed to be hobbling more at work so she was advised to present to the emergency department for evaluation. Related Data Allergies Allergy/AdvReac Type Severity Reaction Status Date / Time No Known Allergies Allergy Verified 05/08/23 18:46 Review of Systems Review of Systems: All systems reviewed & are unremarkable except as noted in HPI and below PMFSH Past Medical History Medical History (Updated 11/09/23 @ 10:02 by Marcus Stephens MD) Diastolic dysfunction GERD (gastroesophageal reflux disease) Hepatic steatosis HTN (hypertension) Moderate pulmonary hypertension Morbid obesity PIH ( induced hypertension) Surgical History Surgical History (Updated 05/09/23 @ 09:16 by Yadira Weston DO) History of ankle surgery (~2019) 2019 History of x 2 S/P gastric sleeve procedure (~2019) Family History Family History (Updated 05/09/23 @ 09:18 by Yadira Weston DO) Sibling Cancer Grandparent Cancer Father Hypertension Social History Social History (Updated 05/09/23 @ 09:20 by Yadira Weston DO) Social History: Patient lives at home with her 3 children ages 12 years old, 3 years old and 7-month-old. She is single. She used to smoke a pack of cigarettes per week but quit smoking 2019. She used to drink moderate heavy consumption but has not done so in several years. She decided she was going to make better life choices. She denies any illicit substance use. Code status: Full code Surrogate decision maker: Grandmother Smoking packs per day: 0.22 Smoking cigarettes per day: 4.4 Years smoked: 10 Smoking pack-years: 2.20 Smoking status: Former smoker Tobacco type: cigarettes Second hand tobacco smoke exposure: Yes Alcohol intake: never Drinks per week: 1 Substance use: never Substance use type: does not use Do You Feel Safe in your Home?: Yes Lack of Transportation: No Lack of Food: Never True Current Housing: I Have Housing Concerned About Future Housing: No Difficulty Paying Gas/Electric Bills: No Difficulty Paying for Meds: No Currently Unemployed: No Education: High School Diploma/GED Difficulty w/ Childcare or Family Care: No Gender identity (if verbalized by the patient): Female Spiritual care concerns: No Exam Narrative: APPEARANCE: Well appearing, no pain, no distress, well-nourished. HEAD: normocephalic, atraumatic. EYES: PERRLA/EOMI, conjunctivae clear. NOSE: Normal no drainage NECK: Supple. No adenopathy, no masses. RESPIRATORY: Airway patent, respirations nonlabored. Clear to auscultation bilaterally, no rales, rhonchi, wheezing. CARDIOVASCULAR: Regular rate and rhythm without murmurs rubs or gallops. ABDOMINAL: Soft, nontender, nondistended, normal bowel sounds MUSCULOSKELETAL: No tenderness to palpation of the left knee, no ecchymosis, no deformity NEURO: Alert. Cranial nerves II through XII intact. SKIN: Warm, dry. Normal Color Course Course Emergency Course: Patient was provided a knee immobilizer, walker for limited weight-bearing instructions have close follow-up with Orthopedics. Vital Signs Vital signs: Vital Signs Temperature 97.5 F L 11/09/23 08:20 Pulse Rate 78 11/09/23 08:20 Respiratory Rate 16 11/09/23 08:20 Blood Pressure 181/119 H 11/09/23 08:20 Pulse Oximetry 100 11/09/23 08:20 Oxygen Delivery Room Air 11/09/23 08:20 Temperature 97.5 F L 11/09/23 08:20 Pulse Rate 72
[2023-11-09 10:22] VITALS: BP 152/80; PULSE 72; RESP 20; O2SAT 98
== END 2023-11-09 10:23 | disposition home or self-care (01) ==
PROVIDERS: Emergency Provider Emergency Medicine; PCP Internal Medicine
DX: M17.12 Unilateral primary osteoarthritis, left knee (principal); M94.262 Chondromalacia, left knee; I27.20 Pulmonary hypertension, unspecified; I51.89 Other ill-defined heart diseases; E66.9 Obesity, unspecified; Z68.42 Body mass index [BMI] 45.0-49.9, adult; K21.9 Gastro-esophageal reflux disease without esophagitis; Z98.84 Bariatric surgery status; Z87.891 Personal history of nicotine dependence
CPT/HCPCS: 73564; 73700; 99284

== ENCOUNTER 2023-11-14 09:15 | Outpatient (CLI) | payer OTHER, SELFPAY ==
[2023-11-14] VITALS (10 sets, daily range): BP systolic 131–155; BP diastolic 67–93; PULSE 68–76; BMI 47.6
[2023-11-14 10:44] LABS: Basophils Percent Auto 0.4 % (0.2-1.2); Eosinophils Absolute Auto 0.3 K/mm3 (0-0.3); Eosinophils Percent Auto 4.2 % (0-4.4); Hematocrit 28.8 % (37.0-47.0); Hemoglobin 9.9 g/dL (12.0-15.0); Immature Granulocyte Absolute 0.03 K/mm3 (0.00-0.031); Immature Granulocyte Percent A 0.4 % (0-0.5); Lymphocytes Absolute Auto 1.17 K/mm3 (0.9-3.2); Lymphocytes Percent Auto 16.6 % (18.3-44.2); Mean Corpuscular HGB Conc 34.4 g/dl (32-36); Mean Corpuscular Hemoglobin 29.4 pg (26-34); Mean Corpuscular Volume 85.5 fl (80-100); Mean Platelet Volume 9.4 fl (7.4-10.4); Monocytes Absolute Auto 0.3 K/mm3 (0.1-0.6); Neutrophils Absolute Auto 5.3 K/mm3 (1.3-6.7); Neutrophils Percent Auto 74.4 % (45.5-73.1); Platelet Count Result 207 k/mm3 (150-375); Red Blood Count 3.37 M/mm3 (4.2-5.4); Red Cell Distribution Width 14.6 % (11.5-14.5); White Blood Count 7.1 K/mm3 (4.5-10.0)
--- NOTE | 2023-11-14 10:47 | PC.NURSE ---
Discussed initial BP's and CBC results with Jeremy Patel CNM. Awaiting the remainder of lab results. Order received for Labetalol which pt took with last .
[2023-11-14 10:50] LABS: Appearance Urine Clear (Clear); Bacteria Urine 1+ /hpf; Bilirubin Urine Negative (Negative); Blood Urine Negative (Negative); Color Urine Yellow (Yellow); Glucose Urine UA Negative (Negative); Ketones Urine Negative (Negative); Leukocyte Esterase Ur Trace LEU/UL (Negative); Nitrate Urine Negative (Negative); Non Pathogenic Casts 0-2; Protein Urine Negative (Negative); RBC Urine 0-2 /hpf (0-2); Specific Grav Ur 1.019 (1.001-1.035); Squamous Epithelial Cell Urine Occasional /hpf (Few); WBC Urine 0-5 /hpf (0-3)
[2023-11-14 10:53] LABS: Alanine Aminotransferase 7 U/L (6-35); Albumin Level 3.4 g/dL (3.5-5.1); Alkaline Phosphatase 76 U/L (38-126); Anion Gap 8 mmol/L (4-12); Aspartate Amino Transferase 15 U/L (14-36); Bilirubin,Total 0.5 mg/dL (0.2-1.3); Blood Urea Nitrogen 12 mg/dL (7-17); Calcium 8.2 mg/dL (8.4-10.2); Carbon Dioxide 24 mmol/L (22-30); Chloride 103 mmol/L (98-107); Estimated Glomerular Filt Rate > 60; Glucose 69 mg/dL (65-110); Potassium 3.6 mmol/L (3.4-5.0); Sodium 135 mmol/L (137-145); Uric Acid 6.5 mg/dL (2.5-7.5)
[2023-11-14 10:54] LABS: Creatinine Urine 147.4 mg/dL; Total Protein Urine Random 6 mg/dL; Ur Ttl Prot Creatinine Ratio 0.04 mg/mg (0-0.20)
[2023-11-14] MEDS: LABETALOL HCL 100 MG TABLET 200 MG PO (11:09)
[2023-11-14 11:20] LABS: Add Urine Microscopic? YES
--- NOTE | 2023-11-14 11:42 | PC.NURSE ---
Jeremy SWEENEYM informed of the rest of pt's labs and updated on BP's. Order for discharge received. Pt to do 24 hr urine on Sunday and return to hospital on Sunday. Pt informed she will need to have blood work redrawn since not doing her 24 hr urine in the next 48 hrs.
== END 2023-11-14 12:07 | disposition home or self-care (01) ==
LOC: ANHOBOP 09:20 → ANHOBPP 09:20
PROVIDERS: PCP Internal Medicine; Visit Provider Advanced Practice Midwife
DX: O13.9 Gestational [pregnancy-induced] hypertension without significant proteinuria, unspecified trimester (principal); Z3A.00 Weeks of gestation of pregnancy not specified
CPT/HCPCS: 36415; 59025; 80053; 81001; 82570; 84156; 84550; 85025; 99199; A9270

== ENCOUNTER 2023-12-05 19:29 | Observation (INO) | payer OTHER, SELFPAY ==
[2023-12-05] VITALS (67 sets, daily range): BP systolic 123–181; BP diastolic 52–99; PULSE 65–90; O2SAT 97–100; BMI 47.3
[2023-12-05 20:08] LABS: Basophils Percent Auto 0.2 % (0.2-1.2); Eosinophils Absolute Auto 0.1 K/mm3 (0-0.3); Eosinophils Percent Auto 0.7 % (0-4.4); Hematocrit 27.9 % (37.0-47.0); Hemoglobin 9.5 g/dL (12.0-15.0); Immature Granulocyte Absolute 0.02 K/mm3 (0.00-0.031); Immature Granulocyte Percent A 0.2 % (0-0.5); Lymphocytes Absolute Auto 0.97 K/mm3 (0.9-3.2); Lymphocytes Percent Auto 11.6 % (18.3-44.2); Mean Corpuscular HGB Conc 34.1 g/dl (32-36); Mean Corpuscular Volume 85.1 fl (80-100); Mean Platelet Volume 9.6 fl (7.4-10.4); Monocytes Absolute Auto 0.3 K/mm3 (0.1-0.6); Monocytes Percent Auto 3.2 % (2.6-8.5); Neutrophils Percent Auto 84.1 % (45.5-73.1); Platelet Count Result 241 k/mm3 (150-375); Red Blood Count 3.28 M/mm3 (4.2-5.4); Red Cell Distribution Width 13.3 % (11.5-14.5); White Blood Count 8.3 K/mm3 (4.5-10.0)
[2023-12-05 20:12] LABS: Add Urine Microscopic? YES; Appearance Urine Clear (Clear); Bacteria Urine 1+ /hpf; Bilirubin Urine Negative (Negative); Blood Urine Negative (Negative); Color Urine Yellow (Yellow); Glucose Urine UA Negative (Negative); Ketones Urine 2+ mg/dL (Negative); Leukocyte Esterase Ur Negative LEU/UL (Negative); Nitrate Urine Negative (Negative); Non Pathogenic Casts 0-2; Protein Urine Trace mg/dL (Negative); RBC Urine 0-2 /hpf (0-2); Specific Grav Ur 1.026 (1.001-1.035); Squamous Epithelial Cell Urine Moderate /hpf (Few)
--- NOTE | 2023-12-05 20:13 | LDADM ---
This patient, Betty Hannah, was admitted to OB Post 117 on at 19:29. Plans for labor, pain management and were discussed with patient. Patient/family oriented to hospital policies and general routines including ID bracelet, bed and alarms, visiting hours, pain management, procedures, bathroom and other care routines, personal items, smoking policy, room service/diet and guest tray routines, security routines, and visiting hours. Patient/Family are encouraged to report perceived risks to care and to ask questions if they do not understand what they are told or what they should do. See OBIX for further documentation.
[2023-12-05 20:20] LABS: Alanine Aminotransferase 10 U/L (6-35); Albumin Level 3.1 g/dL (3.5-5.1); Alkaline Phosphatase 92 U/L (38-126); Anion Gap 12 mmol/L (4-12); Aspartate Amino Transferase 16 U/L (14-36); Bilirubin,Total 0.3 mg/dL (0.2-1.3); Blood Urea Nitrogen 12 mg/dL (7-17); Calcium 8.7 mg/dL (8.4-10.2); Carbon Dioxide 17 mmol/L (22-30); Chloride 107 mmol/L (98-107); Estimated Glomerular Filt Rate > 60; Glucose 144 mg/dL (65-110); Potassium 3.2 mmol/L (3.4-5.0); Sodium 136 mmol/L (137-145); Uric Acid 6.8 mg/dL (2.5-7.5)
--- NOTE | 2023-12-05 20:58 | PC.NURSE ---
Jeremy Patel CNM notified of patient admitted to the labor and delivery unit with complaints of high blood pressures at home. CNM updated on recent blood pressure. New orders received for labetalol and for patient to stay over night.
--- NOTE | 2023-12-05 21:28 | PC.NURSE ---
Jeremy Patel notified of patient not wanting to stay on the unit for observation. Jeremy Patel notified of blood pressures of 174/90 and 172/99. CNM stated that the patient would have to leave AMA due to severe pressures. Jeremy Patel stated that she is going to call Dr. Almeida and call me back.
--- NOTE | 2023-12-05 21:45 | PC.NURSE ---
Jeremy Patel at bedside talking to patient.
--- NOTE | 2023-12-05 21:47 | PM.IMHP ---
H&P: HPI History of Present Illness Date/Time: 12/05/23 21:47 Chief Complaint: 33 year old at 29.5 weeks gestation. Pt was seen this am at [facility] and advised to come to hospital immediately for evaluation, pt arrived this evening with severe range blood pressures. Currently denies headache, visual changes, epigastric pain. complicated by chronic hypertension. 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 Pt admits to taking her blood pressure medication today and is currently prescribed labetalol 200mg BID. is also complicated by anemia, vitamin B and D deficiency due to history of sleeve gastrectomy. complicated by obesity with current BMI of 47. history of section x 3, history of preeclampsia, and history of demise at 16 weeks in 2021. Review of Systems Review of Systems: All systems reviewed & are unremarkable except as noted in HPI and below PMFSH Past Medical History Medical History Diastolic dysfunction GERD (gastroesophageal reflux disease) Hepatic steatosis HTN (hypertension) Moderate pulmonary hypertension Morbid obesity PIH ( induced hypertension) Surgical History Surgical History History of ankle surgery (~2018) 2019 History of x 2 S/P gastric sleeve procedure (~2019) Family History Family History Sibling Cancer Grandparent Cancer Father Hypertension Social History Social History (Updated 11/27/23 @ 09:03 by LOUIS Richardson) Social History: Patient lives at home with her 3 children ages 12 years old, 3 years old and 7-month-old. She is single. She used to smoke a pack of cigarettes per week but quit smoking 2019. She used to drink moderate heavy consumption but has not done so in several years. She decided she was going to make better life choices. She denies any illicit substance use. Code status: Full code Surrogate decision maker: Grandmother Smoking packs per day: 0.22 Smoking cigarettes per day: 4.4 Years smoked: 10 Smoking pack-years: 2.20 Smoking status: Former smoker Tobacco type: cigarettes Second hand tobacco smoke exposure: Yes Alcohol intake: former Drinks per week: 1 Substance use: never Substance use type: does not use Do You Feel Safe in your Home?: Yes Lack of Transportation: No Lack of Food: Never True Current Housing: I Have Housing Concerned About Future Housing: No Difficulty Paying Gas/Electric Bills: No Difficulty Paying for Meds: No Currently Unemployed: No Education: Trade/Vocational Certificate Difficulty w/ Childcare or Family Care: No Living arrangements: with family Occupation/Education: occupation 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[employer] Gender identity (if verbalized by the patient): Female Spiritual care concerns: No Meds Home Medications and Allergies Home Medications Medication Instructions Recorded Confirmed Type vit no.95-ferrous 1 tablet PO DAILY 11/14/23 11/27/23 History fumarate 28 mg-folic acid 800 mcg tablet () prednisone 10 mg tablet 10 mg PO BID #20 tabs 11/27/23 11/27/23 Rx labetalol 200 mg tablet mg 12/05/23 History Allergies Allergy/AdvReac Type Severity Reaction Status Date / Time No Known Allergies Allergy Verified 12/05/23 21:42 Vital Signs Vital Signs - 24 hr 12/05/23 20:08 12/05/23 20:09 12/05/23 20:13 Pulse Rate 90 Blood Pressure 155/92 H Pulse Oximetry 98 99 12/05/23 20:16 12/05/23 20:18 12/05/23 20:23 Pulse Rate 90 Blood Pressure 153/96 H Pulse Oximetry 97 99 12/05/23 20:28 12/05/23 20:31 12/05/23 20:33 Pulse Rate 82 Blood Pressure 160/86 H Pulse
[2023-12-05] MEDS: LABETALOL HCL INJ 100 MG/20 ML VIAL 20 MG IV PUSH (22:00)
[2023-12-05] MEDS: LABETALOL HCL INJ 100 MG/20 ML VIAL 40 MG IV PUSH (22:26)
--- NOTE | 2023-12-05 22:59 | WPDHPUPDATE1 ---
History and Physical Update Update Date/Time: 12/05/23 22:59 History and Physical has been reviewed, including an updated exam of the patient. There are NO changes in the patient's condition. Risks, benefits, and alternatives have been discussed and questions answered. Patient agrees to proceed with transfer of care to [facility]. DR. Hudson if the receiving MD.
--- NOTE | 2023-12-05 23:02 | PC.NURSE ---
Report given to Jae KILGORE at [facility] regarding patient transfer.
--- NOTE | 2023-12-05 23:16 | PC.NURSE ---
Jeremy Patel notified that patient would like pain medication for a headache she previously stated had gone away. New orders received for Tylenol.
[2023-12-05] MEDS: ACETAMINOPHEN 500 MG TABLET 1000 MG PO (23:27)
[2023-12-06] VITALS: PULSE 75; O2SAT 99
[2023-12-06 00:02] VITALS: BP 159/82; PULSE 69
[2023-12-06 00:05] VITALS: PULSE 64; O2SAT 97
--- NOTE | 2023-12-06 00:42 | PC.NURSE ---
Addendum entered by Yordan Sigala RN 12/06/23 00:47: Phone call occurred at [phone]. Original Note: CNM called back to notify that she is coming in to speak with the patient. New orders received for IV labetalol stat.
--- NOTE | 2023-12-10 15:21 | PM.TDS ---
Transfer Discharge Sum: Prov Provider Date of admission: 12/05/23 19:29 Primary care physician: Alen De Leon, Admitting clinician: Andres Almeida MD DS: Admitting Diagnosis Discharge Date 12/06/23 Admitting Diagnosis hypertension Transfer Discharge Sum: Med Medications Active and Home Medications: Home Medications vit no.95-ferrous fumarate 28 mg-folic acid 800 mcg tablet () 1 tablet PO DAILY 11/14/23 [History Confirmed 11/27/23] prednisone 10 mg tablet 10 mg PO BID #20 tabs 11/27/23 [Rx Confirmed 11/27/23] labetalol 200 mg tablet 200 mg BID 12/05/23 [History Confirmed 12/05/23] Transfer Discharge Sum: Hosp Hospital Course Hospital course: Betty Hannah is a 33 year old female Time Spent with Patient Time attestation: Total time spent providing and/or coordinating transfer services:
== END 2023-12-06 00:17 ==
PROVIDERS: Admitting Provider Obstetrics & Gynecology; PCP Internal Medicine; Visit Provider Advanced Practice Midwife
DX: O10.913 Unspecified pre-existing hypertension complicating pregnancy, third trimester (principal); Z3A.29 29 weeks gestation of pregnancy; O99.213 Obesity complicating pregnancy, third trimester; O99.891 Other specified diseases and conditions complicating pregnancy; O99.013 Anemia complicating pregnancy, third trimester; E53.9 Vitamin B deficiency, unspecified; E55.9 Vitamin D deficiency, unspecified; Z87.891 Personal history of nicotine dependence
CPT/HCPCS: 36415; 80053; 81001; 84550; 85025; 87086; 87088; 96374; 96375; A9270; G0378; G0379

== ENCOUNTER 2024-01-24 15:23 | Outpatient (CLI) | payer MEDICAID, SELFPAY ==
[2024-01-24 16:18] LABS: Hematocrit 30.8 % (37.0-47.0); Hemoglobin 10.2 g/dL (12.0-15.0); Mean Corpuscular HGB Conc 33.1 g/dl (32-36); Mean Corpuscular Hemoglobin 28.8 pg (26-34); Mean Platelet Volume 10.3 fl (7.4-10.4); Platelet Count Result 278 k/mm3 (150-375); Red Blood Count 3.54 M/mm3 (4.2-5.4); Red Cell Distribution Width 14.6 % (11.5-14.5)
[2024-01-24 17:06] LABS: Rapid Plasma Reagin Non-Reactive (NonReactive)
[2024-01-24 18:20] LABS: HIV 1/2 Ab P24 Ag Result Negative (Negative)
== END 2024-01-24 15:24 | disposition home or self-care (01) ==
LOC: ANHLAB 15:27
PROVIDERS: PCP Internal Medicine; Visit Provider Obstetrics & Gynecology
DX: Z01.812 Encounter for preprocedural laboratory examination (principal); O34.219 Maternal care for unspecified type scar from previous cesarean delivery
CPT/HCPCS: 36415; 85027; 86592; 86703; 86850; 86900; 86901; G0432

== ENCOUNTER 2024-01-25 05:55 | Inpatient (IN) | payer OTHER, SELFPAY ==
[2024-01-25] VITALS (56 sets, daily range): BP systolic 97–193; BP diastolic 37–125; PULSE 55–100; RESP 16–18; TEMP 36.1–36.6; O2SAT 96–100; BMI 47.5
[2024-01-25] MEDS: LACTATED RINGERS 1,000 ML 125 ML IV CONT (06:41)
[2024-01-25] MEDS: ACETAMINOPHEN 500 MG TABLET 1000 MG PO (06:41)
--- NOTE | 2024-01-25 06:42 | WPDANESEPPF ---
Anes - Initial Pre Proc Eval Procedure: Operation Date: 01/25/24 07:30 Proposed Procedures p Repeat Section - Andres Almeida MD Date/Time: 01/25/24 06:42 Surgeon: Andres Almeida MD Pre Op Diagnosis: c-sec Patient Data Age: 33 Gender: F Height: 1.63 m Weight: 125.5 kg Allergies Allergy/AdvReac Type Severity Reaction Status Date / Time No Known Allergies Allergy Verified 01/16/24 09:23 Home Medications Medication Instructions Recorded Confirmed Type vit no.95-ferrous 1 tablet PO DAILY 11/14/23 01/16/24 History fumarate 28 mg-folic acid 800 mcg tablet () labetalol 200 mg tablet 200 mg BID 12/05/23 01/16/24 History Patient hx anesthesia problems: none Family hx anesthesia problems: none Results Review: All pre-operative results and documents have been reviewed as part of the pre-operative evaluation. [facility] Past Medical History Medical History Diastolic dysfunction GERD (gastroesophageal reflux disease) Hepatic steatosis HTN (hypertension) Moderate pulmonary hypertension Morbid obesity PIH ( induced hypertension) Surgical History Surgical History History of ankle surgery (~2018) 2019 History of x 2 S/P gastric sleeve procedure (~2019) Family History Family History Sibling Cancer Grandparent Cancer Father Hypertension Social History Social History Social History: Patient lives at home with her 3 children ages 12 years old, 3 years old and 7-month-old. She is single. She used to smoke a pack of cigarettes per week but quit smoking 2019. She used to drink moderate heavy consumption but has not done so in several years. She decided she was going to make better life choices. She denies any illicit substance use. Code status: Full code Surrogate decision maker: Grandmother Smoking packs per day: 0.22 Smoking cigarettes per day: 4.4 Years smoked: 10 Smoking pack-years: 2.20 Smoking status: Former smoker Tobacco type: cigarettes Second hand tobacco smoke exposure: Yes Alcohol intake: former Drinks per week: 1 Substance use: never Substance use type: does not use Do You Feel Safe in your Home?: Yes Lack of Transportation: No Lack of Food: Never True Current Housing: I Have Housing Concerned About Future Housing: No Difficulty Paying Gas/Electric Bills: No Difficulty Paying for Meds: No Currently Unemployed: No Education: Associate Degree Difficulty w/ Childcare or Family Care: No Living arrangements: with family Occupation/Education: occupation 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 Informed Consent: The patient's anesthetic plan and its attendant risks and benefits were discussed with the patient/family/POA. Questions were solicited and answers provided to the satisfaction of the patient/family/POA.
[2024-01-25] MEDS: ONDANSETRON INJ 4 MG/2 ML VIAL IV PUSH (07:24)
[2024-01-25] MEDS: FAMOTIDINE 20 MG/2 ML VIAL IV PUSH (07:24)
--- NOTE | 2024-01-25 07:25 | PM.IMHP ---
H&P: HPI History of Present Illness Date/Time: 01/25/24 07:25 Chief Complaint: Term Narrative: this patient is a 33-year-old female, multiparous, at term with previous delivery. She has unwanted fertility. We have agreed to perform repeat delivery with bilateral salpingectomy. The patient understands the details of the procedure. The procedure has been explained in detail. She understands the risks. She understands that injuries may occur that result in hospitalization, more surgery, and severe illness. She understands risk of hemorrhage and infection. She denies any chest pain or shortness of breath. She denies any nausea, vomiting, fever, chills. Review of Systems Review of Systems: All systems reviewed & are unremarkable except as noted in HPI and below Constitutional: Constitutional: Denies chills, Denies fatigue, Denies fever(s) and Denies weakness Eyes: Eyes: Denies blurry vision, Denies change in vision, Denies loss of peripheral vision, Denies loss of vision, Denies other visual disturbances and Denies eye pain ENT: Denies vertigo, Denies dizziness, Denies hearing loss, Denies mouth pain, Denies nasal obstruction, Denies neck mass and Denies neck pain Cardiovascular: Cardiovascular: Denies chest pain, Denies diaphoresis, Denies syncope, Denies leg edema and Denies dyspnea Respiratory: Respiratory: Denies chest congestion, Denies cough, Denies hemoptysis, Denies dyspnea and Denies wheezing Gastrointestinal: Gastrointestinal: Denies abdominal pain, Denies constipation, Denies diarrhea, Denies nausea and Denies vomiting Genitourinary: Genitourinary: Denies hematuria, Denies change in libido, Denies nocturia, Denies genital lesions, Denies flank pain and Denies urinary urgency Musculoskeletal: Musculoskeletal: Denies abnormal gait, Denies back pain, Denies myalgias, Denies arthralgias, Denies joint swelling, Denies muscle weakness and Denies neck pain Integumentary/Breasts: Skin/Breast: Denies swelling, Denies breast pain, Denies breast mass, Denies dry skin, Denies nipple discharge, Denies unusual bruising and Denies jaundice Neurologic: Denies Neuro-related abnormal movements, Denies Abnormal speech present, Denies abnormal gait, Denies behavioral changes, Denies confusion, Denies vertigo, Denies dizziness, Denies syncope, Denies loss of vision, Denies memory loss, Denies convulsions and Denies weakness Psychiatric: Psychiatric: Denies abnormal sleep pattern, Denies behavioral changes, Denies change in libido, Denies confusion, Denies depression, Denies anhedonia and Denies memory loss Endocrine: Endocrine: Reports no additional endocrine complaints, Denies change in libido and Denies fatigue Hematologic/Lymphatic: Hematologic/Lymphatic: Reports no additional hematologic/lymphatic complaints Allergic/Immunologic: Allergic/Immunologic: Reports no additional allergic/immunologic complaints and Denies wheezing PMFSH Past Medical History Medical History Diastolic dysfunction GERD (gastroesophageal reflux disease) Hepatic steatosis HTN (hypertension) Moderate pulmonary hypertension Morbid obesity PIH ( induced hypertension) Surgical History Surgical History History of ankle surgery (~2018) 2019 History of x 2 S/P gastric sleeve procedure (~2019) Family History Family History Sibling Cancer Grandparent Cancer Father Hypertension Social History Social History Social History: Patient lives at home with her 3 children ages 12 years old, 3 years old and 7-month-old. She is single. She used to smoke a pack of cigarettes per week but quit smoking 2019. She used to drink moderate heavy consumption but has not done so in several years. She decided she
--- NOTE | 2024-01-25 07:29 | WPDHPUPDATE1 ---
History and Physical Update Update Date/Time: 01/25/24 07:29 History and Physical has been reviewed, including an updated exam of the patient. There are NO changes in the patient's condition. Risks, benefits, and alternatives have been discussed and questions answered. Patient agrees to proceed with procedure.
[2024-01-25] MEDS: ceFAZolin 3 GM/D5W 100 ML 100 ML IVPB (08:15)
--- NOTE | 2024-01-25 09:36 | P.PCNOB_ITS ---
OB - Delivery Note Procedure Delivery date: 01/25/24 Pre-op diagnosis: Previous Delivery and Other (female sterilization) Post-op Diagnosis: Same Procedure Performed: Repeat and Tubal Ligation Surgeon: Andres Almeida MD Anesthesia type: Spinal Description of Procedure/Findings: The patient was taken the operating room.? She was prepped and draped in dorsal supine position with a leftward tilt.? This was done after spinal anesthetic was applied.? A low-transverse skin incision was made and carried down till of the fascia with the knife.? The fascial incision was made with the knife.? The fascial incision was extended laterally with Melendez scissors.? The fascia was tented upward superiorly and inferiorly the rectus muscles were dissected off bluntly.? The rectus muscles were the midline.? The preperitoneal fat and peritoneum were dissected open bluntly at the superior aspect of the rectus muscles.? The peritoneal incision was extended superior and inferior with good position of bladder.? The uterine incision was made with a scalpel down to the level of the amniotic cavity.? The amniotic cavity was entered bluntly.? The infant was delivered.? The cord was clamped and cut and the was handed off to waiting pediatric staff.? Cord bloods were obtained.? The placenta was removed manually.? The uterus was exteriorized.? The uterus was cleared of all clots, debris and membranes.? The uterus was closed in 0 Vicryl running lock fashion.? imbricating layer of 0 Vicryl was placed also. Each fallopian tube was grasped and raised with a Sandee.? With from the underlying venous structures.? The mesosalpinx between the tube and the rest the adnexa was cauterized and transected with LigaSure cautery.? It was performed from the distal tube near the ovary in a stepwise fashion towards the cornua.? The tube at the cornua was cauterized transected with LigaSure ca utery.? This was performed in a bilateral fashion. The uterus was returned to the abdomen.? The gutters were cleared of all clots and debris.? The fascia was closed with 0 Vicryl running fashion.? The subcutaneous tissue was irrigated pinpoint bleeders were cauterized.? The skin was closed with subcuticular absorbable hieu.? The skin incision line was covered with glue.? The patient tolerated the procedure well.? She has taken recovery room in stable condition.? Sponge lap and needle counts were correct x2.? Estimated Blood Loss: 240 [place] Baby Date of : 01/25/24 Gestational Age by Date: 37
[2024-01-25] MEDS: MORPHINE SULFATE INJ (*CRX) 10 MG/ML AMP 2.5 MG IV PUSH (11:11)
[2024-01-25] MEDS: OXYTOCIN 30 UNITS/NS 500 ML 30 UNITS/500 ML BAG 125 UNITS IV CONT (11:43)
[2024-01-25] MEDS: LIDOCAINE 5% PATCH 1 PATCH TRANSDERM ×2 (11:52→12:00)
[2024-01-25] MEDS: ACETAMINOPHEN 325 MG TABLET 650 MG PO ×2 (12:52→21:48)
[2024-01-25] MEDS: HYDROcodone/acetaminophen (*CRX) 10-325 MG TABLET 1 TAB PO ×3 (12:56→21:48)
[2024-01-25] MEDS: SIMETHICONE 80 MG TAB.CHEW PO ×3 (12:59→21:48)
--- NOTE | 2024-01-25 15:22 | OBPPTRN ---
Patient transferred to post room #288 via (stretcher ). Support person present. Oriented to unit, room, information board, rooming in, admission packet and security measures. Patient verbalizes understanding.
--- NOTE | 2024-01-25 15:23 | PC.NURSE ---
Patient cannot have NSAID's due to hx of gastric sleeve. NSAID orders discontinued.
[2024-01-25] MEDS: DOCUSATE SODIUM 100 MG CAPSULE PO (17:05)
[2024-01-25] MEDS: NIFEdipine 30 MG TAB.ER.24 60 MG PO (17:15)
[2024-01-26 03:40] VITALS: BP 145/90; PULSE 62
[2024-01-26] MEDS: ACETAMINOPHEN 325 MG TABLET 650 MG PO ×3 (03:40→17:16)
[2024-01-26] MEDS: HYDROcodone/acetaminophen (*CRX) 10-325 MG TABLET 1 TAB PO ×3 (03:40→13:14)
[2024-01-26 05:45] LABS: Basophils Percent Auto 0.1 % (0.2-1.2); Eosinophils Absolute Auto 0.1 K/mm3 (0-0.3); Eosinophils Percent Auto 1.5 % (0-4.4); Hematocrit 29.1 % (37.0-47.0); Hemoglobin 9.7 g/dL (12.0-15.0); Immature Granulocyte Absolute 0.04 K/mm3 (0.00-0.031); Immature Granulocyte Percent A 0.4 % (0-0.5); Lymphocytes Percent Auto 5.6 % (18.3-44.2); Mean Corpuscular HGB Conc 33.3 g/dl (32-36); Mean Corpuscular Hemoglobin 28.4 pg (26-34); Mean Corpuscular Volume 85.3 fl (80-100); Mean Platelet Volume 10.2 fl (7.4-10.4); Monocytes Absolute Auto 0.3 K/mm3 (0.1-0.6); Monocytes Percent Auto 2.9 % (2.6-8.5); Neutrophils Percent Auto 89.5 % (45.5-73.1); Platelet Count Result 229 k/mm3 (150-375); Red Blood Count 3.41 M/mm3 (4.2-5.4); Red Cell Distribution Width 14.6 % (11.5-14.5); White Blood Count 8.9 K/mm3 (4.5-10.0)
--- NOTE | 2024-01-26 06:50 | WPDANLDPN2 ---
Anes-Prog Note L&D Date/Time: 01/26/24 06:50 Comfortable throughout: section Neuraxial method: spinal Epidural/Spinal procedure site: clean & non-tender Neuro status: Neuro function grossly intact. Cardiovascular status: normal Respiratory status: normal Airway patency: baseline Mental status: baseline Post-Op hydration status: normal Vital Signs: Last Vital Signs Temp 36.6 C 01/25/24 21:50 Pulse 62 01/26/24 03:40 Resp 18 01/25/24 21:50 BP 145/90 H 01/26/24 03:40 Pulse Ox 99 01/25/24 21:50 O2 Del Method Room Air 01/25/24 19:30 Pain score (VAS): 2 I/O: Intake & Output 01/25/24 01/25/24 01/26/24 15:59 23:59 07:59 Intake Total 1250 Output Total 675 800 600 Balance -679 450 -600 Patient feedback: Patient satisfied with anesthetic care.
--- NOTE | 2024-01-26 06:50 | WPDANLDNPN2 ---
Anes-Prog Note L&D-Neuraxial Date/Time: 01/26/24 06:50 Neuraxial medications: intrathecal PF morphine Opiod-related complaints: none Patient feedback: Patient satisfied with post-operative pain management.
[2024-01-26] MEDS: TETANUS,DIPHTHERIA,AC PERTUSSIS ADULT (0.5 ML) BOOSTRIX IM (07:13)
[2024-01-26] MEDS: POLYSACCHARIDE IRON COMPLEX 150 MG CAPSULE PO ×2 (07:17→17:16)
[2024-01-26] MEDS: DOCUSATE SODIUM 100 MG CAPSULE PO ×2 (07:18→17:16)
[2024-01-26] MEDS: NIFEdipine 30 MG TAB.ER.24 60 MG PO ×2 (07:18→20:32)
[2024-01-26] MEDS: SIMETHICONE 80 MG TAB.CHEW PO ×3 (07:18→17:16)
[2024-01-26] MEDS: CALCIUM CARBONATE (TUMS) 500 MG (200 MG ELEMENTAL) PO ×2 (07:20→17:38)
[2024-01-26 07:30] VITALS: BP 119/63; PULSE 61; RESP 18; TEMP 36.6; O2SAT 100
[2024-01-26] MEDS: LIDOCAINE 5% PATCH 1 PATCH TRANSDERM (11:25)
--- NOTE | 2024-01-26 13:09 | PM.OBPNVD ---
OB - PN: Subj Subjective Date/time seen: 01/26/24 13:09 Patient comments: no complaints, pain well controlled, tolerating diet and flatus present OB - PN: Obj Data Labs 01/26/24 04:44 Labs: Laboratory Results - last 24 hr 01/26/24 04:44 WBC 8.9 RBC 3.41 L Hgb 9.7 L Hct 29.1 L MCV 85.3 MCH 28.4 MCHC 33.3 RDW 14.6 H Plt Count 229 MPV 10.2 Immature Gran % (Auto) 0.4 Neut % (Auto) 89.5 H Lymph % (Auto) 5.6 L [place] % (Auto) 2.9 Eos % (Auto) 1.5 Baso % (Auto) 0.1 L Lymph # (Auto) 0.50 L [place] # (Auto) 0.3 Eos # (Auto) 0.1 Baso # (Auto) 0.0 Abs Immat Gran (auto) 0.04 H Absolute Neuts (auto) 8.0 H Absolute Nucleated RBC 0.000 Nucleated RBC % 0.0 OB - PN A/P Plan day: 1 Comments: Post Op LTCS - no problems, routine recovery Time Spent With Patient Time: Total time spent is greater than 50% in coordination of care (as documented) at patient's floor/unit and/or counseling patient: Exam Const: General: cooperative, healthy appearing, comfortable and no acute distress Resp: Auscultation: no crackles, no rales, no rhonchi and no wheezes Cardio: Rhythm: regular rhythm Heart sounds: no click and no murmurs GI: Inspection: non-distended Auscultation: normal bowel sounds Extrem: General: normal to inspection, no pedal edema and no calf tenderness
--- NOTE | 2024-01-26 14:03 | P.PCNOB_ITS ---
OB - Delivery Note Procedure Delivery date: 01/26/24 Pre-op diagnosis: Arrest of Dilation Post-op Diagnosis: Same Procedure Performed: Primary Surgeon: Andres Almeida MD Anesthesia type: Spinal Description of Procedure/Findings: The patient was taken the operating room.? She was prepped and draped in dorsal supine position with a leftward tilt.? This was done after spinal anesthetic was applied.? A low-transverse skin incision was made and carried down till of the fascia with the knife.? The fascial incision was made with the knife.? The fascial incision was extended laterally with Melendez scissors.? The fascia was tented upward superiorly and inferiorly the rectus muscles were dissected off bluntly.? The rectus muscles were the midline.? The preperitoneal fat and peritoneum were dissected open bluntly at the superior aspect of the rectus muscles.? The peritoneal incision was extended superior and inferior with good position of bladder.? The uterine incision was made with a scalpel down to the level of the amniotic cavity.? The amniotic cavity was entered bluntly.? The infant was delivered.? The cord was clamped and cut and the was handed off to waiting pediatric staff.? Cord bloods were obtained.? The placenta was removed manually.? The uterus was exteriorized.? The uterus was cleared of all clots, debris and membranes.? The uterus was closed in 0 Vicryl running lock fashion.? An imbricating over a was placed along the incision line as well.? The uterus was returned to the abdomen.? The gutters were cleared of all clots and debris.? The fascia was closed with 0 Vicryl running fashion.? The subcutaneous tissue was irrigated pinpoint bleeders were cauterized.? The skin was closed with subcuticular absorbable hieu.? The skin incision line was covered with glue.? The patient tolerated the procedure well.? She has taken recovery room in stable condition.? Sponge lap and needle counts were correct x2.? Urine Output: 300 [place] Baby Date of : 01/25/24 Gestational Age by Date: 37
[2024-01-26] MEDS: oxyCODONE/ACETAMINOPHEN (*CRX) 10-325 MG TABLET 1 TAB PO ×2 (15:14→19:39)
[2024-01-26 17:15] VITALS: BP 157/96
[2024-01-26 20:10] VITALS: BP 158/99; PULSE 64; RESP 18; TEMP 36.6; O2SAT 100
[2024-01-26 20:31] VITALS: PULSE 64
[2024-01-26] MEDS: LABETALOL HCL 100 MG TABLET 200 MG PO (20:31)
[2024-01-27] VITALS (10 sets, daily range): BP systolic 110–149; BP diastolic 63–99; PULSE 74–92; RESP 16; TEMP 36.6–36.9; O2SAT 99–100
[2024-01-27] MEDS: ACETAMINOPHEN 325 MG TABLET 650 MG PO ×3 (00:25→17:32)
[2024-01-27] MEDS: oxyCODONE/ACETAMINOPHEN (*CRX) 10-325 MG TABLET 1 TAB PO ×5 (00:25→19:57)
[2024-01-27] MEDS: MULTIVIT/MIN/PREN/FOL AC/IRON TABLET 1 TAB PO (08:54)
[2024-01-27] MEDS: SIMETHICONE 80 MG TAB.CHEW PO ×3 (08:55→17:32)
[2024-01-27] MEDS: NIFEdipine 30 MG TAB.ER.24 60 MG PO ×2 (08:55→21:38)
[2024-01-27] MEDS: DOCUSATE SODIUM 100 MG CAPSULE PO ×2 (08:55→17:32)
[2024-01-27] MEDS: POLYSACCHARIDE IRON COMPLEX 150 MG CAPSULE PO ×2 (08:55→17:32)
[2024-01-27] MEDS: LABETALOL HCL 100 MG TABLET 200 MG PO ×2 (08:55→21:37)
--- NOTE | 2024-01-27 08:57 | PM.OBPNVD ---
OB - PN: Subj Subjective Date/time seen: 01/27/24 08:57 Patient comments: no complaints, pain well controlled, incisional pain, tolerating diet and flatus present OB - PN: Obj Data Labs 01/26/24 04:44 OB - PN A/P Plan day: 3 Plan: routine care and other Comments: patient stable on additional blood pressure medication Time Spent With Patient Time: Total time spent is greater than 50% in coordination of care (as documented) at patient's floor/unit and/or counseling patient: Exam Const: General: comfortable, no acute distress and alert Resp: Effort & Inspection: normal respiratory effort Auscultation: no crackles, no rales and no rhonchi Cardio: Rate: regular rate Heart sounds: no click, no murmurs and no rubs GI: Inspection: non-distended GI Palp: No Tenderness to palpation present (GI) Auscultation: normal bowel sounds Other: Incision - CDI Extrem: General: normal to inspection, no pedal edema and no calf tenderness
[2024-01-27] MEDS: diphenhydrAMINE HCl CAP 25 MG CAPSULE 50 MG PO (13:07)
[2024-01-27] MEDS: LIDOCAINE 5% PATCH 1 PATCH TRANSDERM (18:57)
[2024-01-28] MEDS: oxyCODONE/ACETAMINOPHEN (*CRX) 10-325 MG TABLET 1 TAB PO ×3 (03:35→12:54)
[2024-01-28] MEDS: ACETAMINOPHEN 325 MG TABLET 650 MG PO ×2 (03:35→08:56)
[2024-01-28 07:45] VITALS: BP 105/51; PULSE 74; RESP 18; TEMP 36.2; O2SAT 100
[2024-01-28] MEDS: POLYSACCHARIDE IRON COMPLEX 150 MG CAPSULE PO (07:51)
[2024-01-28] MEDS: DOCUSATE SODIUM 100 MG CAPSULE PO (07:52)
[2024-01-28] MEDS: MULTIVIT/MIN/PREN/FOL AC/IRON TABLET 1 TAB PO (07:53)
[2024-01-28] MEDS: SIMETHICONE 80 MG TAB.CHEW PO ×2 (07:53→12:55)
[2024-01-28] MEDS: NIFEdipine 30 MG TAB.ER.24 60 MG PO (07:54)
--- NOTE | 2024-01-28 08:53 | PM.OBPNVD ---
OB - PN: Subj Subjective Date/time seen: 01/28/24 08:53 Patient comments: no complaints, pain well controlled, incisional pain, tolerating diet and flatus present OB - PN: Obj Data Labs 01/26/24 04:44 OB - PN A/P Plan day: 3 Plan: routine care, discharge home and other Comments: Incision check in one week. Given precautions Time Spent With Patient Time: Total time spent is greater than 50% in coordination of care (as documented) at patient's floor/unit and/or counseling patient: Exam Const: General: comfortable, no acute distress and alert Resp: Effort & Inspection: normal respiratory effort Auscultation: no crackles, no rales and no rhonchi Cardio: Rate: regular rate Heart sounds: no click, no murmurs and no rubs GI: Inspection: non-distended GI Palp: No Tenderness to palpation present (GI) Auscultation: normal bowel sounds Other: Incision - CDI Extrem: General: normal to inspection, no pedal edema and no calf tenderness
--- NOTE | 2024-01-28 08:54 | PM.OBDSVD ---
DS: Admitting Diagnosis Discharge Date January 28, 2024 Admitting Diagnosis term DS: Discharge Diagnosis Discharge Diagnosis (1) Previous delivery, delivered: Code(s): O34.219 - Maternal care for unspecified type scar from previous delivery Status: Acute OB - DS: Summary OB Procedures : None OB Procedures Intrapartum: OB Procedures: : None Peripartum Data Procedures: Procedures Operation Date: 01/25/24 07:30 Actual Procedure Side Surgeon p Repeat Section Bilateral Andres Almeida MD Time Spent with Patient Time attestation: Total time spent providing and/or coordinating discharge services: DS: Data Data Completed and Pending Pending studies at discharge: Pending at discharge 01/25/24 09:17 Surgical [PTH] Routine Discharge Plan Discharge Discharging Clinician: Andres Almeida Patient Disposition: Home, Self-Care Activity: pelvic rest Diet: regular Patient Instructions: Antibiotic Form Stand Alone Forms: General Discharge Information Follow-up/Referrals: Andres Almeida MD [Physician] - Discharge Medications: New oxycodone-acetaminophen 5-325 mg tablet 1 tablet PO Q4H PRN (Reason: pain) Qty: 25 0RF Continued PNV cmb#95-ferrous fumarate-FA [] 28 mg iron- 800 mcg Tablet 1 tablet PO DAILY nifedipine 60 mg tablet extended release 60 mg PO BID Date of admission: 01/25/24 05:55 Primary Care Provider: Haley,Alen Pal Admitting Provider: Andres Almeida Attending physician on admission: Andres Almeida Condition: Stable
--- NOTE | 2024-01-28 10:01 | PC.NURSE ---
Blood Pressure 105/51, hold labelotol per Dr. Almeida
--- NOTE | 2024-01-28 11:44 | PC.NURSE ---
Patient viewed the discharge video Mother & Baby Care, The First Two Weeks . Patient was given the opportunity and encouraged to ask questions. Patient verbalized understanding of information shared and has been given the mother/baby guide for home reference.
[2024-01-28 12:12] VITALS: BP 139/89; PULSE 94; RESP 16; TEMP 36.8; O2SAT 100
[2024-01-29 14:16] VITALS: BP 128/84; PULSE 87; RESP 18; TEMP 36.3; O2SAT 100
== END 2024-01-28 13:00 | disposition home or self-care (01) | DRG 539 ==
LOC: ANHLDR 06:00 → ANHOB2 12:19
PROVIDERS: Admitting Provider Obstetrics & Gynecology; PCP Internal Medicine; Visit Provider Obstetrics & Gynecology
PROC: 10D00Z1 Extraction of Products of Conception, Low, Open Approach (ICD-10-PCS; CPT 59514; principal; 2024-01-25 07:30)
DX: O34.211 Maternal care for low transverse scar from previous cesarean delivery (principal); Z37.0 Single live birth; Z3A.37 37 weeks gestation of pregnancy; O13.4 Gestational [pregnancy-induced] hypertension without significant proteinuria, complicating childbirth; O69.81X0 Labor and delivery complicated by cord around neck, without compression, not applicable or unspecified; O41.03X0 Oligohydramnios, third trimester, not applicable or unspecified; Z30.2 Encounter for sterilization
CPT/HCPCS: 36415; 85025; 88302; 88307; 90715; A9270; J0690; J1596; J2250; J2270; J2274; J2371; J2405; J2590; J7120

== ENCOUNTER 2024-07-09 13:27 | Emergency (ER) | payer OTHER, SELFPAY ==
--- NOTE | ~2024-07-09 | CT_ITS ---
CTA chest PE protocol Ordering provider: Harsha Vega MD History: 33 years Female with . sob . Comparison: None. Technique: CT angiogram chest was performed following timed intravenous injection of contrast. Thin s lice axial images and reformatted coronal images were obtained. Three dimensional reformatted images of the chest were also obtained using a [employer] workstation. . Automated exposure control and iterati ve reconstruction technique were employed. The dose-length product was 993.34 mGy-cm. 100 mL Omnipaqu e 350 was given IV. Findings: PULMONARY ARTERIES: No pulmonary embolus. VISUALIZED THORACIC INLET: Normal. MEDIASTINUM: Aorta/coronary arteries: The thoracic aorta is normal. Heart/other: The heart is not enlarged. Lymph nodes: No mediastinal or hilar adenopathy. LUNGS: No pulmonary nodules or masses. No infiltrates or effusions. No pneumothorax. VISUALIZED UPPER ABDOMEN: Fat infiltration of the liver. Hepatomegaly. Distended gallbladder with no stones. Sliding hiatus hernia. Otherwise, the visualized upper abdomen is normal. MUSCULOSKELETAL: Soft tissues: The superficial soft tissues are normal. Bones: Age appropriate degenerative changes of the spine. IMPRESSION: 1. No pulmonary embolism. 2. No acute cardiopulmonary pathology. 3. Hepatomegaly with fat infiltration of the liver. 4. Sliding hiatus hernia. Reviewed, dictated and finalized at location A.
--- NOTE | ~2024-07-09 | XR_ITS ---
EXAMINATION: XR chest 2V DATE: 07/09/2024 14:19 INDICATION: Shortness of breath. TECHNIQUE: Frontal and lateral views of the chest were obtained. COMPARISON: Chest 2 views 05/08/2023 FINDINGS: There is no pneumonia, pleural effusion, or pneumothorax. The heart size is normal. There i s a surgical clip in the abdomen. There are old healed bilateral rib fractures. IMPRESSION: 1. No acute cardiopulmonary disease. Reviewed, dictated and finalized at location A.
[2024-07-09 13:32] VITALS: BP 132/80; PULSE 130; RESP 16; TEMP 36.6; O2SAT 100
--- NOTE | 2024-07-09 13:40 | ECG_ITS ---
Test Date: 2024-07-09 13:45:37 Measurements Intervals [place] Rate: 113 P: 51 SD: 100 QRS: 14 QRSD: 91 T: 31 QT: 373 QTc: 512 Interpretive Statements SINUS TACHYCARDIA WITH SHORT SD INTERVAL LEFT ATRIAL ENLARGEMENT [-0.15mV P WAVE IN V1/V2] LEFT VENTRICULAR HYPERTROPHY AND ST-T CHANGE [VOLTAGE CRITERIA PLUS ST/T ABNORMALITY] No previous ECG available for comparison Electronically Signed On 07-10-2024 10:42:38 CDT by Roel Amor M.D.
[2024-07-09 13:59] LABS: Basophils Absolute Auto 0.1 K/mm3 (0.0-0.1); Basophils Percent Auto 0.7 % (0.2-1.2); Eosinophils Absolute Auto 0.2 K/mm3 (0-0.3); Eosinophils Percent Auto 2.5 % (0-4.4); Hematocrit 36.8 % (37.0-47.0); Hemoglobin 12.3 g/dL (12.0-15.0); Immature Granulocyte Absolute 0.02 K/mm3 (0.00-0.031); Immature Granulocyte Percent A 0.3 % (0-0.5); Lymphocytes Percent Auto 16.1 % (18.3-44.2); Mean Corpuscular HGB Conc 33.4 g/dl (32-36); Mean Corpuscular Hemoglobin 29.9 pg (26-34); Mean Corpuscular Volume 89.5 fl (80-100); Mean Platelet Volume 9.6 fl (7.4-10.4); Monocytes Absolute Auto 0.5 K/mm3 (0.1-0.6); Neutrophils Absolute Auto 5.6 K/mm3 (1.3-6.7); Neutrophils Percent Auto 74.4 % (45.5-73.1); Platelet Count Result 291 k/mm3 (150-375); Red Blood Count 4.11 M/mm3 (4.2-5.4); Red Cell Distribution Width 15.3 % (11.5-14.5); White Blood Count 7.5 K/mm3 (4.5-10.0)
[2024-07-09 14:09] LABS: Alanine Aminotransferase 86 U/L (6-35); Albumin Level 4.4 g/dL (3.5-5.1); Alkaline Phosphatase 138 U/L (38-126); Anion Gap 10 mmol/L (4-12); Aspartate Amino Transferase 91 U/L (14-36); Bilirubin,Total 2.8 mg/dL (0.2-1.3); Blood Urea Nitrogen 13 mg/dL (7-17); Calcium 9.2 mg/dL (8.4-10.2); Carbon Dioxide 30 mmol/L (22-30); Chloride 93 mmol/L (98-107); Estimated CRCL calculation 73 ml/min; Estimated Glomerular Filt Rate 52; Glucose 125 mg/dL (65-110); Potassium 3.4 mmol/L (3.4-5.0); Sodium 133 mmol/L (137-145)
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
--- OUTSIDE RECORDS SUMMARY | 2024-07-09 14:30 | XMS_ITS | Data Portability ---
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 Cortney Patel [facility] [address],[place] [address] 11/14/2023 09:45:35 11/14/2023 10:22:49 Gestation period, 26 weeks 02691207 Z3A.26 [id number] Andres Ng MD [facility] [address],[place] [address] 11/27/2023 10:37:02 11/27/2023 12:18:11 Routine care 498890755 Z34.91 [id number] Jocelin Caden [facility] [address],[place] [address] 11/30/2023 16:53:22 12/03/2023 03:36:14 Hypertensive disorder 88092549 I10 [id number] Andres Ng MD [facility] [address],[place] [address] 1 01/08/2024 10:07:05 01/08/2024 11:27:02 Routine care 301145574 Z34.91 [id number] [facility] [address],[place] [address] 01/11/2024 15:05:57 01/11/2024 15:59:37 growth restriction 73859753 O36.5999 [id number] Andres Ng MD [facility] [address],[place] [address] 01/11/2024 15:06:12 01/12/2024 10:41:10 Routine care 859592137 Z34.91 [id number] Andres Ng MD [facility] [address],[place] [address] 1 01/18/2024 10:45:39 01/18/2024 12:01:32 Routine care 703126913 Z34.91 [id number] Prachi [facility] [address] [address] 01/18/2024 10:45:59 01/18/2024 12:02:08 growth restriction 19293433 O36.5999 [id number] Andres Ng MD [facility] [address] [address] 02/04/2024 15:41:12 02/04/2024 16:49:19 Postoperative pain 834152560 G89.18 This patient is a 33-year-ol d female who presents for postop follow-up. She is 1 week postop from a delivery. Her incision is clean dry and intact. She has no complaints . Her bleeding is minimal. She denies any nausea, vomiting, fever, chills. She denies any chest pain or shortness of breath. Her baby is doing well. Her mood is good. continues to have some postoperat vandana pain. Requests pain medication and better pain control. Health Concerns Section Related Observation LastModified by Organization Detai ls LastModified Time None Recorded Concern Status LastModified by Organization Details LastModified Time None Recorded Advance Directives Directive None Recorded Payers Encounter Date Sequence Insurance Name Policy Number Policy Guajardo Covered Member ID Guajardo Member ID Guarantor Name 01/11/2024 1 [place] Betty Hannah [id number] Dorothy Hannah 01/11/2024 1 [place] Betty Hannah [id number] Dorothy Hannah 01/18/2024 1 [facility] - DOS ON OR AFTER 20 (MEDICAID REPLACEMENT - HMO) Betty Hannah [id number] Dorothy Hannah 01/18/2024 1 [facility] - DOS ON OR AFTER 20 (MEDICAID REPLACEMENT - HMO) Betty Hannah [id number] Dorothy Metzgervez 02/04/2024 1 [facility] - DOS ON OR AFTER 20 (MEDICAID REPLACEMENT - HMO) Betty Hannah [id number] Dorothy Hannah Notes Date Note Type Note Provider Name and Address Organization Details Recorded Time 02/04/2024 text/html This patient is a 33-year-old female who presents for postop follow-up. She is 1 week postop from a delivery. Her incision is clean dry and intact. She has no complaints. Her bleeding is minimal. She denies any nausea, vomiting, fever, chills. She denies any chest pain or shortness of breath. Her baby is doing well. Her mood is good. Andres Ng MD [address], [place], [address], [facility] 02/04/2024 16:42:35 OBGyn Episode Ob Episode Information Episode Created Date Number of Fetuses Patient Bloodtype Patient rh Status Prepregnancy Weight lbs Domestic Partner Domestic Partner Phone Father Name Jacker Status 03/23/20 22 1 DELETED Toan Calculation Initial Toan Date Initial Exam Date Initial Exam Provider Initial Ultrasound Date Last Menstrual Period Date Ultra Sound Weeks Gestation 0 Eighteen To Twenty Week Toan Update Ultra Sound Date Fundal Height At Umbil Quickening Date Ultra Sound Latest Weeks Gestation Final Toan Confirmed By Final Toan Confirmed Date Final Toan Date Ultra Sound Latest Days Gestation 0 0 Menstrual History Last Menstrual Date Menses Monthly On Bcp Conception Prior Menses Frequency Hcg Plus Date Menarche Onset Age Delivery Information Delivery Date Delivery Type Labor Anesthesia Weeks Gestation Incision Type Labor Labor Length Hrs Delivered By Post Complications Tubal Sterilization Discharge Date Comments 1 Discharge Information Feeding Method Contraceptive Method Maternal HG B and HCT Levels Ob Episode Information Episode Created Date Number of Fetuses Patient Bloodtype Patient rh Status Prepregnancy Weight lbs Domestic Partner Domestic Partner Phone Father Name Jacker Status 03/23/20 22 1 CLOSED Fetus Data First Name Last Name Admitted to NICU Weight (g) Sex Living Outcome Pediatric Complications Fetus ID Race Codes Race Delivery Type 3288.54 2 F Full Term [id number] Repeat Toan Calculation Initial Toan Date Initial Exam Date Initial Exam Provider Initial Ultrasound Date Last Menstrual Period Date Ultra Sound Weeks Gestation 0 Eighteen To Twenty Week Toan Update Ultra Sound Date Fundal Height At Umbil Quickening Date Ultra Sound Latest Weeks Gestation Final Toan Confirmed By Final Toan Confirmed Date Final Toan Date Ultra Sound Latest Days Gestation 0 0 Menstrual History Last Menstrual Date Menses Monthly On Bcp Conception Prior Menses Frequency Hcg Plus Date Menarche Onset Age Delivery Information Delivery Date Delivery Type Labor Anesthesia Weeks Gestation Incision Type Labor Labor Length Hrs Delivered By Post Complications Tubal Sterilization Discharge Date Comments 0 39 Discharge Information Feeding Method Contraceptive Method Maternal HG B and HCT Levels Ob Episode Information Episode Created Date Number of Fetuses Patient Bloodtype Patient rh Status Prepregnancy Weight lbs Domestic Partner Domestic Partner Phone Father Name Jacker Status 03/23/20 22 1 CLOSED Fetus Data First Name Last Name Admitted to NICU Weight (g) Sex Living Outcome Pediatric Complications Fetus ID Race Codes Race Delivery Type Demise [id number] Toan Calculation Initial Toan Date Initial Exam Date Initial Exam Provider Initial Ultrasound Date Last Menstrual Period Date Ultra Sound Weeks Gestation 0 Eighteen To Twenty Week Toan Update Ultra Sound Date Fundal Height At Umbil Quickening Date Ultra Sound Latest Weeks Gestation Final Toan Confirmed By Final Toan Confirmed Date Final Toan Date Ultra Sound Latest Days Gestation 0 0 Menstrual History Last Menstrual Date Menses Monthly On Bcp Conception Prior Menses Frequency Hcg Plus Date Menarche Onset Age Delivery Information Delivery Date Delivery Type Labor Anesthesia Weeks Gestation Incision Type Labor Labor Length Hrs Delivered By Post Complications Tubal Sterilization Discharge Date Comments 2 16 demise 16wks Discharge Information Feeding Method Contraceptive Method Maternal HG B and HCT Levels Ob Episode Information Episode Created Date Number of Fetuses Patient Bloodtype Patient rh Status Prepregnancy Weight lbs Domestic Partner Domestic Partner Phone Father Name Jacker Status 03/23/20 22 1 CLOSED Fetus Data First Name Last Name Admitted to NICU Weight (g) Sex Living Outcome Pediatric Complications Fetus ID Race Codes Race Delivery Type 3883.65 4704 F Full Term [id number] Primary Toan Calculation Initial Toan Date Initial Exam Date Initial Exam Provider Initial Ultrasound Date Last Menstrual Period Date Ultra Sound Weeks Gestation 0 Eighteen To Twenty Week Toan Update Ultra Sound Date Fundal Height At Umbil Quickening Date Ultra Sound Latest Weeks Gestation Final Toan Confirmed By Final Toan Confirmed Date Final Toan Date Ultra Sound Latest Days Gestation 0 0 Menstrual History Last Menstrual Date Menses Monthly On Bcp Conception Prior Menses Frequency Hcg Plus Date Menarche Onset Age Delivery Information Delivery Date Delivery Type Labor Anesthesia Weeks Gestation Incision Type Labor Labor Length Hrs Delivered By Post Complications Tubal Sterilization Discharge Date Comments 1 39 Discharge Information Feeding Method Contraceptive Method Maternal HG B and HCT Levels Ob Episode Information Episode Created Date Number of Fetuses Patient Bloodtype Patient rh Status Prepregnancy Weight lbs Domestic Partner Domestic Partner Phone Father Name Jacker Status 01/09/20 23 1 O Positive 252 CLOSED Fetus Data First Name Last Name Admitted to NICU Weight (g) Sex Living Outcome Pediatric Complications Fetus ID Race Codes Race Delivery Type 2438.05 7 M true Prematur e [id number] Repeat Problems Problem Notes CF/SMA NEG Problem Name Start Date End Date Resolution Snomed Code Not e Anemia [id number] IV infusio ns to start 06/26 Hypoglycemia 419626157 06/19 GIV E PRECAUTIONS demise from miscarriage 6850092 16 wks with [place] - need records!!!! Itching 637691679 bile acids WNL Hypertensive disorder 12120051 CHTN Severe obesity complicating 09/15/2022 [id number] Disorder of vitamin B12 06/26/2022 MEDICATION 629082338 deficient - to start b12 1000mcg daily Deliveries by [id number] X2 to repeat- 3 8w for cHTN Toan Calculation Initial Toan Date Initial Exam Date Initial Exam Provider Initial Ultrasound Date Last Menstrual Period Date Ultra Sound Weeks Gestation 11/06/2022 04/24/2022 03/23/2022 01/16/2023 7 Eighteen To Twenty Week Toan Update Ultra Sound Date Fundal Height At Umbil Quickening Date Ultra Sound Latest Weeks Gestation Final Toan Confirmed By Final Toan Confirmed Date Final Toan Date Ultra Sound Latest Days Gestation 0 [email or web address] 04/24/2022 11/07/19 23 0 Pre-kaden Flowsheet Flowsheet Date 04/24/2022 Zamarripa Score Blood Edema Fundus Height Fundus Units Glucose Ketones Leukocytes Nitrite Labor Signs Protein Cervic Dilation Cervic Effacement Cervic Station 12 Type Weight in lbs Pre/Post Dialysis Refused Weight 257.282360045120 BP Diastolic BP Location Tested BP Systolic BP Type 99 R arm 162 sitting 92 L arm 143 sitting Fetus Heart Rate Present A 158 Fetus Movement Comments this patient is a 31-year-ol d female presents for initial care. She has a 5 para 2021 at 12 weeks gestation. She is not vaccinated for COVID. She was given vaccine recommendations. I explained routine care to the patient in great detail. We talked about her history. Her 1st had a complicated . With the patient acquiring pneumonia and being admitted just 5days after delivery. She has had 2 previous deliveries. She has no complaints today. Flowsheet Date 05/29/2022 Zamarripa Score Blood Edema Fundus Height Fundus Units Glucose Ketones Leukocytes Nitrite Labor Signs Protein Cervic Dilation Cervic Effacement Cervic Station neg none none trace Type Weight in lbs Pre/Post Dialysis Refused Weight 264.493166039094 BP Diastolic BP Location Tested BP Systolic BP Type 86 150 Fetus Heart Rate Present Fetus Movement A Yes Comments Doing well. Still has elevat ed blood pressure. Denies history of hypertension other than she thinks she had pre eclampsia with her 1st . She was readmitted for fluid retention. Pt will start baby aspirin daily. Labs today. Will also do baseline 24 hour urine. Supplies sent home with patient. She will bring back in on Sunday. Hypertension precautions discussed. Also discussed delivery timing. Repeat bp 140/88. Plan to return in 2-3 weeks for routine visit or sooner if needed. Flowsheet Date 06/19/2022 Zamarripa Score Blood Edema Fundus Height Fundus Units Glucose Ketones Leukocytes Nitrite Labor Signs Protein Cervic Dilation Cervic Effacement Cervic Station Type Weight in lbs Pre/Post Dialysis Refused BP Diastolic BP Location Tested BP Systolic BP Type Fetus Heart Rate Present Fetus Movement Comments Flowsheet Date 06/19/2022 Zamarripa Score Blood Edema Fundus Height Fundus Units Glucose Ketones Leukocytes Nitrite Labor Signs Protein Cervic Dilation Cervic Effacement Cervic Station neg none none trace Type Weight in lbs Pre/Post Dialysis Refused Weight 266.148731560102 BP Diastolic BP Location Tested BP Systolic BP Type 80 137 Fetus Heart Rate Present Fetus Movement A Yes Comments Doing well. Baseline anatomy today. Plan to repeat in 4 weeks with routine visit. Pt informed of anemia and hypoglycemia. Will have labs drawn today and hypoglycemia protocol reviewed. Having a boy. Desires circ. Flowsheet Date 07/17/2022 Zamarripa Score Blood Edema Fundus Height Fundus Units Glucose Ketones Leukocytes Nitrite Labor Signs Protein Cervic Dilation Cervic Effacement Cervic Station Type Weight in lbs Pre/Post Dialysis Refused BP Diastolic BP Location Tested BP Systolic BP Type Fetus Heart Rate Present Fetus Movement Comments Flowsheet Date 07/17/2022 Zamarripa Score Blood Edema Fundus Height Fundus Units Glucose Ketones Leukocytes Nitrite Labor Signs Protein Cervic Dilation Cervic Effacement Cervic Station neg none none trace Type Weight in lbs Pre/Post Dialysis Refused Weight 268.664153748561 BP Diastolic BP Location Tested BP Systolic BP Type 86 131 Fetus Heart Rate Present Fetus Movement A Yes Comments Doing well. Follow up anatom y scan today. BP remains good. No symptoms. Did discuss starting testing at 32 weeks and delivery around 38 weeks. Plan to return at 28 weeks for routine visit, ultrasound, and gtt. Flowsheet Date 08/14/2022 Zamarripa Score Blood Edema Fundus Height Fundus Units Glucose Ketones Leukocytes Nitrite Labor Signs Protein Cervic Dilation Cervic Effacement Cervic Station Type Weight in lbs Pre/Post Dialysis Refused BP Diastolic BP Location Tested BP Systolic BP Type Fetus Heart Rate Present Fetus Movement Comments Flowsheet Date 08/14/2022 Zamarripa Score Blood Edema Fundus Height Fundus Units Glucose Ketones Leukocytes Nitrite Labor Signs Protein Cervic Dilation Cervic Effacement Cervic Station neg trace none trace Type Weight in lbs Pre/Post Dialysis Refused Weight 270.74355697102 BP Diastolic BP Location Tested BP Systolic BP Type 90 160 80 120 Fetus Heart Rate Present Fetus Movement A Yes Comments Doing well. Initial bp right after finishing glucose drink. History of chtn. Repeat significantly improved. Denies h/a, v/d, or e/p. PIH precautions discussed. Plan for return in 2 weeks and start testing at 32 weeks. Growth ultrasound today. Flowsheet Date 09/04/2022 Zamarripa Score Blood Edema Fundus Height Fundus Units Glucose Ketones Leukocytes Nitrite Labor Signs Protein Cervic Dilation Cervic Effacement Cervic Station neg none 36 none trace Type Weight in lbs Pre/Post Dialysis Refused Weight 275.747930002763 BP Diastolic BP Location Tested BP Systolic BP Type 79 145 90 150 Fetus Heart Rate Present A 135 Fetus Movement A Yes Comments Doing fine. Has 2 more IV ir on infusions. Will schedule R CS for 38w for cHTN. Undecided re salpingectomy, paper signed, will decided soon. Precautions given. Watch BPs. Flowsheet Date 09/14/2022 Zamarripa Score Blood Edema Fundus Height Fundus Units Glucose Ketones Leukocytes Nitrite Labor Signs Protein Cervic Dilation Cervic Effacement Cervic Station Type Weight in lbs Pre/Post Dialysis Refused BP Diastolic BP Location Tested BP Systolic BP Type Fetus Heart Rate Present Fetus Movement Comments Flowsheet Date 09/15/2022 Zamarripa Score Blood Edema Fundus Height Fundus Units Glucose Ketones Leukocytes Nitrite Labor Signs Protein Cervic Dilation Cervic Effacement Cervic Station Type Weight in lbs Pre/Post Dialysis Refused BP Diastolic BP Location Tested BP Systolic BP Type Fetus Heart Rate Present Fetus Movement Comments Flowsheet Date 09/15/2022 Zamarripa Score Blood Edema Fundus Height Fundus Units Glucose Ketones Leukocytes Nitrite Labor Signs Protein Cervic Dilation Cervic Effacement Cervic Station Type Weight in lbs Pre/Post Dialysis Refused BP Diastolic BP Location Tested BP Systolic BP Type Fetus Heart Rate Present Fetus Movement Comments Flowsheet Date 09/15/2022 Zamarripa Score Blood Edema Fundus Height Fundus Units Glucose Ketones Leukocytes Nitrite Labor Signs Protein Cervic Dilation Cervic Effacement Cervic Station neg trace none trace Type Weight in lbs Pre/Post Dialysis Refused Weight 280.94653820484 BP Diastolic BP Location Tested BP Systolic BP Type 78 118 Fetus Heart Rate Present A 130 Fetus Movement A Yes Comments Doing well, just tired. BPP 10/10. BP great. Still undecided re tubal but probably not. We discussed risks of 4th CS, especially abnormal placentation and scarring. Growth 47%. Continue weekly testing. Flowsheet Date 09/18/2022 Zamarripa Score Blood Edema Fundus Height Fundus Units Glucose Ketones Leukocytes Nitrite Labor Signs Protein Cervic Dilation Cervic Effacement Cervic Station Type Weight in lbs Pre/Post Dialysis Refused BP Diastolic BP Location Tested BP Systolic BP Type Fetus Heart Rate Present Fetus Movement Comments Flowsheet Date 09/18/2022 Zamarripa Score Blood Edema Fundus Height Fundus Units Glucose Ketones Leukocytes Nitrite Labor Signs Protein Cervic Dilation Cervic Effacement Cervic Station Type Weight in lbs Pre/Post Dialysis Refused BP Diastolic BP Location Tested BP Systolic BP Type Fetus Heart Rate Present Fetus Movement Comments Flowsheet Date 09/18/2022 Zamarripa Score Blood Edema Fundus Height Fundus Units Glucose Ketones Leukocytes Nitrite Labor Signs Protein Cervic Dilation Cervic Effacement Cervic Station 33 none trace Type Weight in lbs Pre/Post Dialysis Refused Weight 282.284798220375 BP Diastolic BP Location Tested BP Systolic BP Type 87 R arm 151 sitting Fetus Heart Rate Present A 154 Fetus Movement Comments patient has severe leg pain after standing, she has swelling in that area to. She has multiple surgeries on her right ankle. She cannot work in her current job roll and will require discontinuation of work unless a light duty work can be provided. Elevated blood pressure today. Flowsheet Date 09/25/2022 Zamarripa Score Blood Edema Fundus Height Fundus Units Glucose Ketones Leukocytes Nitrite Labor Signs Protein Cervic Dilation Cervic Effacement Cervic Station Type Weight in lbs Pre/Post Dialysis Refused BP Diastolic BP Location Tested BP Systolic BP Type Fetus Heart Rate Present Fetus Movement Comments Flowsheet Date 09/25/2022 Zamarripa Score Blood Edema Fundus Height Fundus Units Glucose Ketones Leukocytes Nitrite Labor Signs Protein Cervic Dilation Cervic Effacement Cervic Station Type Weight in lbs Pre/Post Dialysis Refused BP Diastolic BP Location Tested BP Systolic BP Type Fetus Heart Rate Present Fetus Movement Comments Flowsheet Date 09/25/2022 Zamarripa Score Blood Edema Fundus Height Fundus Units Glucose Ketones Leukocytes Nitrite Labor Signs Protein Cervic Dilation Cervic Effacement Cervic Station neg trace none trace Type Weight in lbs Pre/Post Dialysis Refused Weight 280.02576837846 BP Diastolic BP Location Tested BP Systolic BP Type 81 136 Fetus Heart Rate Present A 130 Fetus Movement A Yes Comments Doing ok except bilateral fo ot swelling at end of day. No hand/face swelling and it resolves after sleeping. trace proteinuria, BP good today. CS scheduled for 38w. Precautions given. NST reactive. Flowsheet Date 10/02/2022 Zamarripa Score Blood Edema Fundus Height Fundus Units Glucose Ketones Leukocytes Nitrite Labor Signs Protein Cervic Dilation Cervic Effacement Cervic Station Type Weight in lbs Pre/Post Dialysis Refused BP Diastolic BP Location Tested BP Systolic BP Type Fetus Heart Rate Present Fetus Movement Comments Flowsheet Date 10/02/2022 Zamarripa Score Blood Edema Fundus Height Fundus Units Glucose Ketones Leukocytes Nitrite Labor Signs Protein Cervic Dilation Cervic Effacement Cervic Station Type Weight in lbs Pre/Post Dialysis Refused BP Diastolic BP Location Tested BP Systolic BP Type Fetus Heart Rate Present Fetus Movement Comments Flowsheet Date 10/02/2022 Zamarripa Score Blood Edema Fundus Height Fundus Units Glucose Ketones Leukocytes Nitrite Labor Signs Protein Cervic Dilation Cervic Effacement Cervic Station neg 2+ none trace Type Weight in lbs Pre/Post Dialysis Refused Weight 286.512540305173 BP Diastolic BP Location Tested BP Systolic BP Type 97 155 90 150 100 142 Fetus Heart Rate Present A 135 Fetus Movement A Yes Comments BPs elevated today, but not severe. Denies TREVIZO/BV. Had some left shoulder pain that was worse with movement and inhalation, but resolved with tylenol. BPP 10/10. Will do labs and 24 hour urine and recheck BP when returns 24 hour urine tomorrow. Off work now. Discussed may need to deliver earlier than 38w. Continue Fe infusions. Flowsheet Date 10/03/2022 Zamarripa Score Blood Edema Fundus Height Fundus Units Glucose Ketones Leukocytes Nitrite Labor Signs Protein Cervic Dilation Cervic Effacement Cervic Station Type Weight in lbs Pre/Post Dialysis Refused BP Diastolic BP Location Tested BP Systolic BP Type 111 170 110 R arm 172 sitting 112 L arm 168 sitting Fetus Heart Rate Present Fetus Movement Comments Pt in office for BP check an d to drop off 24hr urine. Initial BP elevated. Pt states no TREVIZO, visual disturbances, RUQ or epigastric pain. Has swelling in feet and left shoulder pain still, but Tylenol is helping. Pt is nervous and would like earlier as she spoke with AD about yesterday possibly doing 37wks or sooner. Has a h/o ICU admission after her 2011 delivery. Went in 3 days pp and was in ICU for 3 days r/t elevated BP and fluid in lungs, legs, and arms. AD informed of this and that I was going to rpt BP manually in 10 minutes. Had pt sit for 10 minutes and then rechecked BP manually on each arm - both severe range. Reviewed with AD and pt sent to L&D for celestone injection. Pts 24hr urine was sent with her to [place] so they could run it there. Report given to MAGUI Pedraza at [place] letting her know pt was coming over and to get celestone inj, run 24hr urine, check BPs for 20 min and call AD with results, she verbalized understanding. Pt informed of the plan before leaving the office and verbalized understanding. MAGUI santoro Flowsheet Date 10/13/2022 Zamarripa Score Blood Edema Fundus Height Fundus Units Glucose Ketones Leukocytes Nitrite Labor Signs Protein Cervic Dilation Cervic Effacement Cervic Station Type Weight in lbs Pre/Post Dialysis Refused Weight 261.099846171611 BP Diastolic BP Location Tested BP Systolic BP Type 118 L arm 164 sitting Fetus Heart Rate Present Fetus Movement Comments Menstrual History Last Menstrual Date Menses Monthly On Bcp Conception Prior Menses Frequency Hcg Plus Date Menarche Onset Age 1001/16/2023 Genetic Screening And Infection History Question Response Note Mental Retardation/Autism false Patient's Age Will Be 35 Years Or Older At Estim ated Date of Delivery false Thalassemia (Turkish, Marshallese, Mediterranean, Or Background): MCV < 80 false Neural Tube Defect (Meningomyelocele, Spina Bifi da, Or Anencephaly) false Congenital Heart Defect false Down Syndrome false Robert-Sachs (eg, Church, Cajun, Telugu-[place]) f alse Tim Disease false Sickle Cell Disease Or Trait () false Hemophilia Or Other Blood Disorders false Muscular Dystrophy false Cystic Fibrosis false [place]'s Chorea false Intellectual Disability/Autism false If Yes, Was Person Tested For Fragile X? false Other Inherited Genetic Or Chromosomal Disorder false Maternal Metabolic Disorder (eg, Type 1 Diabetes , PKU) false Patient Or Baby's Father Had A Child With Defects Not Listed Above false Recurrent Loss, Or A Stillbirth false Medications (including Suppl ements, Vitamins, Herbs, OTC Drugs), Illicit/Recreational Drugs, Alcohol false If Yes, Agent(s) And Strength/Dosage false Any Other Genetic History false Live With Someone With TB Or Exposed To TB false Patient Or Partner Has History Of Genital Herpes false Rash Or Viral Illness Since Last Menstrual Perio d false History Of STD, Gonorrhea, Chlamydia, HPV, Syphi lis false Other Infection History false History of HIV false History of Hepatitis false Prior GBS-infected child false Hemoglobinopathy Or Carrier false Other Structural Defect false Recent Travel History Outside of Country false Delivery Information Delivery Date Delivery Type Labor Anesthesia Weeks Gestation Incision Type Labor Labor Length Hrs Delivered By Post Complications Tubal Sterilization Discharge Date Comments 3 None [facility] in[facility] 35.1 Low Transvers e true Keila Mujica MD Maternal obesity, CHTN, severe anemia & Hypoglyce ab Discharge Information Feeding Method Contraceptive Method Maternal HG B and HCT Levels Ob Episode Information Episode Created Date Number of Fetuses Patient Bloodtype Patient rh Status Prepregnancy Weight lbs Domestic Partner Domestic Partner Phone Father Name Jacker Status 10/14/19 23 1 DELETED Toan Calculation Initial Toan Date Initial Exam Date Initial Exam Provider Initial Ultrasound Date Last Menstrual Period Date Ultra Sound Weeks Gestation 0 Eighteen To Twenty Week Toan Update Ultra Sound Date Fundal Height At Umbil Quickening Date Ultra Sound Latest Weeks Gestation Final Toan Confirmed By Final Toan Confirmed Date Final Toan Date Ultra Sound Latest Days Gestation 0 0 Menstrual History Last Menstrual Date Menses Monthly On Bcp Conception Prior Menses Frequency Hcg Plus Date Menarche Onset Age Delivery Information Delivery Date Delivery Type Labor Anesthesia Weeks Gestation Incision Type Labor Labor Length Hrs Delivered By Post Complications Tubal Sterilization Discharge Date Comments Discharge Information Feeding Method Contraceptive Method Maternal HG B and HCT Levels Ob Episode Information Episode Created Date Number of Fetuses Patient Bloodtype Patient rh Status Prepregnancy Weight lbs Domestic Partner Domestic Partner Phone Father Name Jacker Status 09/26/19 1 O Positive 261 CLOSED Fetus Data First Name Last Name Admitted to NICU Weight (g) Sex Living Outcome Pediatric Complications Fetus ID Race Codes Race Delivery Type M true Full Term [id number] Problems Problem Notes [facility] NST, U/S & PROFESSOR IN FAMILY STUDIES 4, 01/22/24 u/s and nst 9amRecommendations: repeat c/s and bilat tubal scheduled at 38wks, continue nifedipine XL 60mg BID and labetalol 200mg TID, BP checks, bring log each visit, weekly testing, serial growth, completed IV iron infusions, repeat RPR, lovenox 40mg SQ daily pt declined, encouraged continued LD ASA daily, avoid NSAIDS PP, 1wk bpp + doppler, 2x/week NSTs, vitamin b12 1000mcg weekly x4wks, reassess after treatment, continue vitamin D supplements, pepcid BID, kick counts BID, PTL and pre-e precautions. Problem Name Start Date End Date Resolution Snomed Code Not e Female sterilization 71281052 History of sleeve gastrectomy 10/04/2022 [id number] Obesity [id number] BMI- 44 an tenatal testing growth restriction [id number] Vitamin D deficiency 10/11/2023 54726183 5000 units daily of vit D Anemia 493206104 slo fe sharri ly /IV infusions previous - MF rec IV Iron order sent 01/09 Vitamin B deficiency 10/11/2023 99500771 1 tab 1000mcg daily OTC vit B12 Chronic hypertension in obstetric context [id number] Deliveries by [id number] x 3 Past history of pre-eclampsia [id number] first and t hird , bASA Toan Calculation Initial Toan Date Initial Exam Date Initial Exam Provider Initial Ultrasound Date Last Menstrual Period Date Ultra Sound Weeks Gestation 02/15/2024 07/04/2023 07/04/2023 7 Eighteen To Twenty Week Toan Update Ultra Sound Date Fundal Height At Umbil Quickening Date Ultra Sound Latest Weeks Gestation Final Toan Confirmed By Final Toan Confirmed Date Final Toan Date Ultra Sound Latest Days Gestation 09/25/19 24 18 [email or web address] 09/26/2023 02/15/20 24 6 Pre- Flowsheet Flowsheet Date 09/26/2023 Zamarripa Score Blood Edema Fundus Height Fundus Units Glucose Ketones Leukocytes Nitrite Labor Signs Protein Cervic Dilation Cervic Effacement Cervic Station none Type Weight in lbs Pre/Post Dialysis Refused Weight 274.159505731799 BP Diastolic BP Location Tested BP Systolic BP Type 80 138 Fetus Heart Rate Present Fetus Movement A Yes Comments Patient states that having s ome swelling. reviewed history and will draw labs today, complicated pregnancies due to sleeve gastrectomy and nutritional deficiencies also hx preeclampsia and obesity. start PNV and bASA today, education and precautions, will plan rpt section , anatomy incomplete rpt with visit in 2 weeks, no visit since 7 week US, tx for UTI sxs. macrobid to pharmacy, next appt with dr. ng Flowsheet Date 10/15/2023 Zamarripa Score Blood Edema Fundus Height Fundus Units Glucose Ketones Leukocytes Nitrite Labor Signs Protein Cervic Dilation Cervic Effacement Cervic Station Type Weight in lbs Pre/Post Dialysis Refused BP Diastolic BP Location Tested BP Systolic BP Type Fetus Heart Rate Present Fetus Movement Comments Flowsheet Date 10/15/2023 Zamarripa Score Blood Edema Fundus Height Fundus Units Glucose Ketones Leukocytes Nitrite Labor Signs Protein Cervic Dilation Cervic Effacement Cervic Station neg none 22 Type Weight in lbs Pre/Post Dialysis Refused Weight 278.275542919550 BP Diastolic BP Location Tested BP Systolic BP Type 96 L arm 158 sitting Fetus Heart Rate Present A 145 Fetus Movement A Yes Comments no complaints, no problems, routine care, we would like to sign consent for salpingectomy. Flowsheet Date 11/14/2023 Zamarripa Score Blood Edema Fundus Height Fundus Units Glucose Ketones Leukocytes Nitrite Labor Signs Protein Cervic Dilation Cervic Effacement Cervic Station Type Weight in lbs Pre/Post Dialysis Refused 276.007735081774 BP Diastolic BP Location Tested BP Systolic BP Type 124 170 87 154 Fetus Heart Rate Present Fetus Movement A Yes Comments Patient states that was in [facility] for knee pain last week. Is having some nausea and vomiting. also bp elevated at ED, pt not currently taking ASA, vit d, vit b12, or meds for UTI that were called in. bp severe range today rpt 154/87 denies sxs, will send to LD immediately for evaluation, risk of eclampsia and /maternal if blood pressures not controlled. will discuss with dr. ng and plan pending labs and bp at hospital Flowsheet Date 11/27/2023 Zamarripa Score Blood Edema Fundus Height Fundus Units Glucose Ketones Leukocytes Nitrite Labor Signs Protein Cervic Dilation Cervic Effacement Cervic Station 29 cm Type Weight in lbs Pre/Post Dialysis Refused 277.229185966305 BP Diastolic BP Location Tested BP Systolic BP Type 92 R wrist 152 sitting Fetus Heart Rate Present A 134 Fetus Movement A Yes Comments blood pressures are poorly c ontrolled. She is not taking her medication consistently. She did not take her medication today. She was asked to take her medication and come in 2 days for blood pressure check. We will consider changing medication while on the monitor. Has upcoming ultrasound with [facility] Flowsheet Date 11/30/2023 Zamarripa Score Blood Edema Fundus Height Fundus Units Glucose Ketones Leukocytes Nitrite Labor Signs Protein Cervic Dilation Cervic Effacement Cervic Station Type Weight in lbs Pre/Post Dialysis Refused BP Diastolic BP Location Tested BP Systolic BP Type 122 171 Fetus Heart Rate Present Fetus Movement Comments Pt here for BP check per SB. Pt reports not feeling well and states she is under a lot of family and social stress. 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 Pt's BP reviewed with SP and pt instructed to report to L & D for BP monitoring. Pt verbalized understanding. Jocelin Wellington RN Flowsheet Date 01/08/2024 Zamarripa Score Blood Edema Fundus Height Fundus Units Glucose Ketones Leukocytes Nitrite Labor Signs Protein Cervic Dilation Cervic Effacement Cervic Station Type Weight in lbs Pre/Post Dialysis Refused 275.320916673062 BP Diastolic BP Location Tested BP Systolic BP Type 83 L arm 132 sitting Fetus Heart Rate Present Fetus Movement A Yes Comments patient returns to care here at the [facility] [place], she has agreed to be compliant with her blood pressure medications. Her blood pressures are reasonable today. She has testing today with high-risk doctors. We reviewed their recommendations regarding the Lovenox, heparin, surgery, Lovenox sequence through delivery. We reviewedrwo the importance of testing in the risk of stillbirth. She is grth estricted baby Flowsheet Date 01/11/2024 Zamarripa Score Blood Edema Fundus Height Fundus Units Glucose Ketones Leukocytes Nitrite Labor Signs Protein Cervic Dilation Cervic Effacement Cervic Station Type Weight in lbs Pre/Post Dialysis Refused BP Diastolic BP Location Tested BP Systolic BP Type Fetus Heart Rate Present Fetus Movement Comments Flowsheet Date 01/11/2024 Zamarripa Score Blood Edema Fundus Height Fundus Units Glucose Ketones Leukocytes Nitrite Labor Signs Protein Cervic Dilation Cervic Effacement Cervic Station Type Weight in lbs Pre/Post Dialysis Refused 274.400371230399 BP Diastolic BP Location Tested BP Systolic BP Type 88 L arm 152 sitting 86 R arm 124 sitting Fetus Heart Rate Present A 145 Fetus Movement A Yes Comments no complaints, no problems, routine care, no contractions, no vaginal bleeding, no loss of fluid, no cramping Reassuring testing today, blood pressure repeat was good. Flowsheet Date 01/18/2024 Zamarripa Score Blood Edema Fundus Height Fundus Units Glucose Ketones Leukocytes Nitrite Labor Signs Protein Cervic Dilation Cervic Effacement Cervic Station Type Weight in lbs Pre/Post Dialysis Refused BP Diastolic BP Location Tested BP Systolic BP Type Fetus Heart Rate Present Fetus Movement Comments Flowsheet Date 01/18/2024 Zamarripa Score Blood Edema Fundus Height Fundus Units Glucose Ketones Leukocytes Nitrite Labor Signs Protein Cervic Dilation Cervic Effacement Cervic Station Type Weight in lbs Pre/Post Dialysis Refused 274.728282341625 BP Diastolic BP Location Tested BP Systolic BP Type 83 124 standing Fetus Heart Rate Present A 145 Fetus Movement Comments no complaints, no problems, routine care, no contractions, no vaginal bleeding, no loss of fluid, no crampingReassuring testing today, blood pressure was good. Flowsheet Date 02/04/2024 Zamarripa Score Blood Edema Fundus Height Fundus Units Glucose Ketones Leukocytes Nitrite Labor Signs Protein Cervic Dilation Cervic Effacement Cervic Station Type Weight in lbs Pre/Post Dialysis Refused Weight 266.690162283206 BP Diastolic BP Location Tested BP Systolic BP Type 87 L arm 129 sitting Fetus Heart Rate Present Fetus Movement Comments Menstrual History Last Menstrual Date Menses Monthly On Bcp Conception Prior Menses Frequency Hcg Plus Date Menarche Onset Age Genetic Screening And Infection History Question Response Note Mental Retardation/Autism false Patient's Age Will Be 35 Years Or Older At Estim ated Date of Delivery false Thalassemia (Turkish, Marshallese, Mediterranean, Or Background): MCV < 80 false Neural Tube Defect (Meningomyelocele, Spina Bifi da, Or Anencephaly) false Congenital Heart Defect false Down Syndrome false Robert-Sachs (eg, Church, Cajun, Telugu-[place]) f alse Tim Disease false Sickle Cell Disease Or Trait () false Hemophilia Or Other Blood Disorders false Muscular Dystrophy false Cystic Fibrosis false [place]'s Chorea false Intellectual Disability/Autism false If Yes, Was Person Tested For Fragile X? false Other Inherited Genetic Or Chromosomal Disorder false Maternal Metabolic Disorder (eg, Type 1 Diabetes , PKU) false Patient Or Baby's Father Had A Child With Defects Not Listed Above false Recurrent Loss, Or A Stillbirth false Medications (including Suppl ements, Vitamins, Herbs, OTC Drugs), Illicit/Recreational Drugs, Alcohol false If Yes, Agent(s) And Strength/Dosage false Any Other Genetic History false Live With Someone With TB Or Exposed To TB false Patient Or Partner Has History Of Genital Herpes false Rash Or Viral Illness Since Last Menstrual Perio d false History Of STD, Gonorrhea, Chlamydia, HPV, Syphi lis false Other Infection History false History of HIV false History of Hepatitis false Prior GBS-infected child false Hemoglobinopathy Or Carrier false Other Structural Defect false Recent Travel History Outside of Country false Delivery Information Delivery Date Delivery Type Labor Anesthesia Weeks Gestation Incision Type Labor Labor Length Hrs Delivered By Post Complications Tubal Sterilization Discharge Date Comments 4 Induce d 37 Low Transvers e Andres Ng MD false Discharge Information Feeding Method Contraceptive Method Maternal HG B and HCT Levels
--- OUTSIDE RECORDS SUMMARY | 2024-07-09 14:30 | XMS_ITS | CONTINUITY OF CARE DOCUMENT ---
Author Name jennifer rodriguez Address Unknown Organization [facility] Address [id number] [place] [address] [address] [place] [address] Phone [phone] Care Team Providers Care Electrical Test Technician Name Role Phone HARIS PAGE, SREEKANTH Decker Unavailable INSURANCE PROVIDERS Payer name Policy type / Coverage type Geri red democrat ID HEALTHCARE AND FAMILY SERVICES Medicaid 0 [id number]
[2024-07-09 14:35] LABS: Influenza A QL RT-PCR Negative (Negative); Influenza B QL RT-PCR Negative (Negative); RSV RNA, RT-PCR Negative (Negative); SARS-CoV-2 RNA PCR Negative (Negative)
[2024-07-09 15:29] VITALS: BP 148/112; PULSE 97; RESP 18; O2SAT 100
[2024-07-09] MEDS: LORazepam INJ (*CRX) 2 MG/ML VIAL 1 MG IV PUSH (15:37)
--- NOTE | 2024-07-09 15:44 | ED.SOB ---
HPI - SOB/Dyspnea General Chief Complaint: Shortness of Breath/Dyspnea Stated Complaint: SHOB, shakiness, HTN Time Seen by Provider: 07/09/24 15:23 Source: patient Mode of arrival: wheelchair Limitations: no limitations History of Present Illness HPI Narrative: 33-year-old with a history of hypertension presents to the ER with complaints of shortness of breath since yesterday. Patient states that she was turned to the restroom this morning she got extremely short-winded and her fingers and had started curling up. As per the note patient was hyperventilating in the ER waiting room. She denies any chest pain or or cough. She does have a history of anxiety disorder. Related Data Home Medications ?Medication ?Instructions ?Recorded ?Confirmed ?Last Taken ?Type vit no.95-ferrous 1 tablet PO DAILY 11/14/23 01/25/24 01/25/24 History fumarate 28 mg-folic acid 800 mcg tablet () nifedipine 60 mg tablet,extended 60 mg PO BID 01/25/24 01/25/24 01/25/24 History release Allergies Allergy/AdvReac Type Severity Reaction Status Date / Time No Known Allergies Allergy Verified 07/09/24 13:28 Review of Systems Review of Systems: All systems reviewed & are unremarkable except as noted in HPI and below Constitutional: Constitutional: Reports no additional constitutional complaints Eyes: Eyes: Reports no additional eye complaints ENT: Reports system reviewed and no additional complaints, except as documented Cardiovascular: Cardiovascular: Reports no additional cardiovascular complaints Respiratory: Respiratory: Reports as per HPI Gastrointestinal: Gastrointestinal: Reports no additional gastrointestinal complaints Musculoskeletal: Musculoskeletal: Reports no additional musculoskeletal complaints Neurologic: Reports system reviewed and no additional complaints, except as documented Psychiatric: Psychiatric: Reports no additional psychiatric complaints Endocrine: Endocrine: Reports no additional endocrine complaints [facility] Past Medical History Medical History GERD (gastroesophageal reflux disease) Diastolic dysfunction Moderate pulmonary hypertension Hepatic steatosis PIH ( induced hypertension) HTN (hypertension) Morbid obesity Surgical History Surgical History S/P gastric sleeve procedure (~2019) History of ankle surgery (~2018) 2019 History of x 2 Family History Family History Sibling Cancer Grandparent Cancer Father Hypertension Social History Social History Social History: Patient lives at home with her 3 children ages 12 years old, 3 years old and 7-month-old. She is single. She used to smoke a pack of cigarettes per week but quit smoking 2020. She used to drink moderate heavy consumption but has not done so in several years. She decided she was going to make better life choices. She denies any illicit substance use. Code status: Full code Surrogate decision maker: Grandmother Smoking packs per day: 0.22 Smoking cigarettes per day: 4.4 Years smoked: 10 Smoking pack-years: 2.20 Smoking status: Never smoker Tobacco type: cigarettes Second hand tobacco smoke exposure: No Alcohol intake: former Drinks per week: 1 Substance use: never Substance use type: does not use Do You Feel Safe in your Home?: Yes Lack of Transportation: No Lack of Food: Never True Current Housing: I Have Housing Concerned About Future Housing: No Difficulty Paying Gas/Electric Bills: No Difficulty Paying for Meds: No Currently Unemployed: No Education: High School Diploma/GED Difficulty w/ Childcare or Family Care: No Living arrangements: with family Occupation/Education: occupation 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 HEAD: Normocephalic, atraumatic. EYES: PERRLA and EOMI. ENT: Nares clear, no rhinorrhea or epistaxis. Mucous membranes moist. NECK: Supple. CHEST: Clear to auscultation. No respiratory distress. HEART: Regular rate and rhythm. No murmur heard. Normal peripheral pulses. ABDOMEN: Soft, nontender, nondistended, normal active bowel sounds. EXTREMITIES: Normal range of motion. No edema. SKIN: Warm, dry, no rash. NEURO: No focal deficits. Alert and oriented x3. PSYCH: Normal mood and affect. Course Reevaluation(s) Reevaluation #1: feeling much better, informed her about CT findings , wants meds for anxiety Date: 07/09/24 Time: 17:50 Vital Signs Vital signs: Vital Signs Temperature 36.6 C 07/09/24 13:32 Pulse Rate 130 H 07/09/24 13:32 Respiratory Rate 16 07/09/24 13:32 Blood Pressure 132/80 07/09/24 13:32 Pulse Oximetry 100 07/09/24 13:32 Oxygen Delivery Room Air 07/09/24 13:32 Temperature 36.6 C 07/09/24 13:32 Pulse Rate 130 H 07/09/24 13:32 Respiratory Rate 16 07/09/24 13:32 Blood Pressure 132/80 07/09/24 13:32 Pulse Oximetry 100 07/09/24 13:32 Oxygen Delivery Room Air 07/09/24 15:27 MDM - SOB/Dyspnea Differential Diagnosis Differential diagnosis: Likely acute exacerbation of chronic obstructive airways disease and pulmonary embolism Medical Records Attestation: I reviewed the patient's medical records. Lab Data Attestation: I reviewed the patient's lab results. 07/09/24 13:52 07/09/24 13:52 Labs: Lab Results 07/09/24 07/09/24 Range/Units 13:52 17:10 WBC 7.5 (4.5-10.0) K/mm3 RBC 4.11 L (4.2-5.4) M/mm3 Hgb 12.3 (12.0-15.0) g/dL Hct 36.8 L (37.0-47.0) % MCV 89.5 (80-100) fl MCH 29.9 (26-34) pg MCHC 33.4 (32-36) g/dl RDW 15.3 H (11.5-14.5) % Plt Count 291 (150-375) k/mm3 MPV 9.6 (7.4-10.4) fl Immature Gran % (Auto) 0.3 (0-0.5) % Neut % (Auto) 74.4 H (45.5-73.1) % Lymph % (Auto) 16.1 L (18.3-44.2) % [place] % (Auto) 6.0 (2.6-8.5) % Eos % (Auto) 2.5 (0-4.4) % Baso % (Auto) 0.7 (0.2-1.2) % Lymph # (Auto) 1.20 (0.9-3.2) K/mm3 [place] # (Auto) 0.5 (0.1-0.6) K/mm3 Eos # (Auto) 0.2 (0-0.3) K/mm3 Baso # (Auto) 0.1 (0.0-0.1) K/mm3 Abs Immat Gran (auto) 0.02 (0.00-0.031) K/mm3 Absolute Neuts (auto) 5.6 (1.3-6.7) K/mm3 Absolute Nucleated RBC 0.000 (0.0-0.012) K/mm3 Nucleated RBC % 0.0 (0.0-0.2) % D-Dimer 1.08 H (<0.48) ug/mL Sodium 133 L (137-145) mmol/L Potassium 3.4 (3.4-5.0) mmol/L Chloride 93 L (98-107) mmol/L Carbon Dioxide 30 (22-30) mmol/L Anion Gap 10 (4-12) mmol/L BUN 13 (7-17) mg/dL Creatinine 1.19 H (0.7-1.0) mg/dL Estim Creat Clear Calc 73 ml/min Estimated GFR 52 L (59 - ) Glucose 125 H (65-110) mg/dL Calcium 9.2 (8.4-10.2) mg/dL Total Bilirubin 2.8 H (0.2-1.3) mg/dL AST 91 H (14-36) U/L ALT 86 H (6-35) U/L Alkaline Phosphatase 138 H (38-126) U/L Total Protein 9.0 H (6.3-8.2) g/dL Albumin 4.4 (3.5-5.1) g/dL POC Urine HCG, Qual Negative (Negative) Influenza A (RT-PCR) Negative (Negative) Influenza B (RT-PCR) Negative (Negative) RSV (RT-PCR) Negative (Negative) SARS-CoV-2 RNA (RT-PCR) Negative (Negative) Imaging Data Radiologist's impression: ITS Impressions Chest X-Ray 07/09/24 14:23 IMPRESSION: 1. No acute cardiopulmonary disease. ITS Impressions Chest X-Ray 07/09/24 14:23 IMPRESSION: 1. No acute cardiopulmonary disease. Chest CTA 07/09/24 17:35 IMPRESSION: 1. No pulmonary embolism. 2. No acute cardiopulmonary pathology. 3. Hepatomegaly with fat infiltration of the liver. 4. Sliding hiatus hernia. ECG Data EKG #1: ECG completion date: 07/09/24 ECG completion time: 13:45 EKG Interpretation: tachycardia (113), no ST changes, normal QT, NL axis and other (LVH by voltage criteria) Discharge Plan Discharge Clinical Impression: Anxiety Patient Disposition: Home, Self-Care Condition: Stable Instructions: Anxiety (ED) Patient Language: Hungarian Prescriptions: New hydroxyzine pamoate 25 mg capsule 25 mg PO TID PRN (Reason: anxiety) Qty: 20 0RF No Action PNV cmb#95-ferrous fumarate-FA [] 28 mg iron- 800 mcg Tablet 1 tablet PO DAILY nifedipine 60 mg tablet extended release 60 mg PO BID oxycodone-acetaminophen 5-325 mg tablet 1 tablet PO Q4H PRN (Reason: pain) Qty: 25 0RF Follow-up/Referrals: Haley,Alen Pal MD [Non-Staff] - Time of Disposition: 17:55
[2024-07-09 15:55] LABS: D Dimer 1.08 ug/mL (<0.48)
[2024-07-09 16:31] VITALS: BP 132/86; PULSE 87; RESP 16; O2SAT 97
[2024-07-09 17:14] LABS: BEDSIDEPREGUCG Negative (Negative)
--- OUTSIDE RECORDS SUMMARY | 2024-07-09 17:23 | XMS_ITS | CONTINUITY OF CARE DOCUMENT ---
Author Name jennifer rodriguez Address Unknown Organization [facility] Address [address] [place] [address] [address] [place] [address] Phone [phone] Care Team Providers Care Chorus Master Name Role Phone HARIS PAGE, SREEKANTH Decker Unavailable INSURANCE PROVIDERS Payer name Policy type / Coverage type Geri red alliance party ID [employer]CARE AND FAMILY SERVICES Medicaid 0 [id number]
--- OUTSIDE RECORDS SUMMARY | 2024-07-09 17:23 | XMS_ITS | Clinical Summary ---
Author Organization [facility] [employer] Address [address] [place] [address] Care Team Providers Care Camp Attendant Name Role Phone Eric Lima Primary Care Provider [phone] Source Comments [facility],non-owned Affiliates and Associated Physician Practices is amultiple site organization consisting of ambulatory clinics and hospital sitesin [place], [place], [place] and [place]. This disclosure is being madepursuant to the Care Everywhere program and may not contain all information available regarding this patient. Last updated 18.[facility] [employer] Allergies No known active allergies Medications * [...] migh t be different from the original. [employer] form completed. Diapers given. 12/25/2023 [...] and heating? Not hard at all 12/25/2023 [facility] [place] [facility] Occupat ional [facility] - Occupational Stress [...] place to sleep or slept in a senior care (including now)? No 12/25/2023 Columbia Depression Scale Answer Date Recorded Columbia Depression Scale Total 0 12/25/2023 The thought [...] you. Interventions: Medical Devices Implanted Type Area Bezel Cutter Device Identifier Shelf Expiration Date Model / Serial / Lot Pin Hlf 20mm 4mm Jtx Shrt Ti Ntrd Extfix Implanted:Qty: 1 on 03/12/2019 by Eric Lima DO at [facility] Pin Right: Leg [employer] [id number] / / Pin Hlf 255mm 5mm Jtx Lng Ss 30mm Extfix Implanted:Qty: 2 on 03/12/2019 by Eric Lima DO at [facility] Pin Right: Leg [employer] [id number] / / Pin Hlf 5cm 5mm Jtx Orth Ss Extfix Sys Implanted:Qty: 1 on 03/12/2019 by Eric Lima DO at [facility] Pin Right: Leg [employer] [id number] / / Pin Hlf 35mm 5mm Jtx Lng Ti Ntrd Extfix Implanted:Qty: 2 on 02/20/2019 by Ysabel Cannon MD at [facility] Right: Ankle [employer] [id number] / / Pin Trc 50mm 5mm Jtx Lng Ti Ntrd Strl Implanted:Qty: 1 on 02/20/2019 by Ysabel Cannon MD at [facility] Right: Ankle [employer] [id number] / / Screw 3.5mm 50mm 2.7mm Slf-Tap Cortx Ss Implanted:Qty: 1 on 02/22/2019 by Eric Lima DO at [facility] Right: Ankle [employer] [id number] / / Screw 3.5mm 14mm 2.7mm Slf-Tap Cortx Ss Implanted:Qty: 1 on 02/22/2019 by Eric Lima DO at [facility] Right: Ankle [employer] [id number] / / Plate 4 Hl Lck Lopro 2 Comp Slot Fib Rt Implanted:Qty: 1 on 02/22/2019 by Eric Lima DO at [facility] Right: Ankle [employer] [id number] / / Screw 2.7mm 14mm Lck Biodur 108 Nonster Implanted:Qty: 1 on 02/22/2019 by Eric Lima DO at [facility] Right: Ankle [employer] [id number] / / Screw 2.7mm 16mm Lck Biodur 108 Nonster Implanted:Qty: 2 on 02/22/2019 by Eric Lima DO at [facility] Right: Ankle [employer] [id number] / / Screw 2.7mm 18mm Lck Elb Periart Ss Implanted:Qty: 1 on 02/22/2019 by Eric Lima DO at [facility] Right: Ankle [employer] [id number] / / Mtrx Tissue 10x7cm Cytal Prcn Bldr Brn - [id number] Implanted:Qty: 1 on 03/12/2019 by Eric Lima DO at [facility] Right: Leg [employer] 12/14/2020 [id number] / [id number] / [id number] Mtrx Tissue Micromatrix Prcn Bldr - [id number] Implanted:Qty: 1 on 03/12/2019 by Eric Lima DO at [facility] Right: Leg [employer] 10/13/2020 [id number] / [id number] / [id number] Mtrx Tissue [id number] Gentrix Prcn Bldr - [id number] Implanted:Qty: 1 on 03/12/2019 by Eric Lima DO at [facility] Right: Leg [employer] 10/13/2020 [id number] / [id number] / [id number] Mtrx Tissue Micromatrix Prcn Bldr - [id number] Implanted:Qty: 1 on 03/12/2019 by Eric Lima DO at [facility] Right: Leg [employer] 09/13/2020 [id number] / [id number] / [id number] Mtrx Tissue [id number] Cytal Prcn Bldr Brn - [id number] Implanted:Qty: 1 on 03/12/2019 by Eric Lima DO at [facility] Right: Leg [employer] 12/14/2020 [id number] / [id number] / [id number] Explanted Type Area Bezel Cutter Device Identifier Shelf Expiration Date Model / Serial / Lot Clamp Extfix Jtx 10.5mm Bar To Bar Mr Sf Explanted:Qty: 1 on 02/20/2019 by Ysabel Cannon MD at [facility] Right: Ankle [employer] [id number] / / Bar Extfix 200mm Jtx Cfbr Nonster Disp Explanted:Qty: 1 on 02/20/2019 by Ysabel Cannon MD at [facility] Right: Ankle [employer] [id number] / / Screw 3.5mm 14mm 2.7mm Slf-Tap Cortx Ss Implanted:Qty: 2 by Eric Lima DO Explanted:Qty: 2 on 02/22/2019 by Eric Lima DO at [facility] Right: Ankle [employer] [id number] / / Clamp Extfix Jtx 10.5-4mm Mini Mr Sf Bar Explanted:Qty: 1 on 03/12/2019 by Eric Lima DO at [facility] Right: Leg [employer] [id number] / / Clamp Extfix Jtx 10.5mm Bar To Bar Mr Sf Explanted:Qty: 1 on 03/12/2019 by Eric Lima DO at [facility] Right: Leg [employer] [id number] / / Bar Extfix 200mm Jtx Cfbr Nonster Disp Explanted:Qty: 1 on 03/12/2019 by Eric Lima DO at [facility] Right: Leg [employer] [id number] / / Advance Directives * Full Code [...] 11:51 AM 02/20/2019 11:52 AM Care Teams Camp Attendant Relationship Specialty Start Date End Date Eric Lima DO PCP - General Orthopedic Surgery 05/30/19
[2024-07-09 18:08] VITALS: BP 129/85; PULSE 91; RESP 20; TEMP 36.8; O2SAT 100
== END 2024-07-09 18:10 | disposition home or self-care (01) ==
PROVIDERS: Emergency Provider Family Medicine
DX: F41.9 Anxiety disorder, unspecified (principal); Z20.822 Contact with and (suspected) exposure to COVID-19; I11.9 Hypertensive heart disease without heart failure; I27.20 Pulmonary hypertension, unspecified; E66.01 Morbid (severe) obesity due to excess calories; Z68.41 Body mass index [BMI] 40.0-44.9, adult; K21.9 Gastro-esophageal reflux disease without esophagitis; Z98.84 Bariatric surgery status; Z87.891 Personal history of nicotine dependence; K76.0 Fatty (change of) liver, not elsewhere classified; K44.9 Diaphragmatic hernia without obstruction or gangrene; R00.0 Tachycardia, unspecified; R94.31 Abnormal electrocardiogram [ECG] [EKG]; I51.7 Cardiomegaly
CPT/HCPCS: 36415; 71046; 71275; 80053; 81025; 85025; 85380; 87637; 93005; 96374; 99284; J2060; Q9967